=== PATIENT | female | born 1935 | race African-American/Black ===

== ENCOUNTER 2017-09-10 03:28 | Emergency (ER) | payer BC ==
[2017-09-10] MEDS: diphenhydrAMINE HCL 25 MG CAPSULE PO ×2 (03:58)
[2017-09-10] MEDS: FAMOTIDINE 20 MG TABLET. PO ×2 (03:59)
[2017-09-10] MEDS: DIPHENHYDRAMINE/ZINC ACETATE 2%/0.1% TOPICAL CREAM 28GM TUBE. TP ×2 (03:59)
== END 2017-09-10 04:15 | disposition home or self-care (01) ==
LOC: ER 03:28
DX: R21 Rash and other nonspecific skin eruption (principal); L29.9 Pruritus, unspecified; I10 Essential (primary) hypertension; E11.9 Type 2 diabetes mellitus without complications; G89.29 Other chronic pain
CPT/HCPCS: 99284; Q0163

== ENCOUNTER 2017-12-14 14:35 | Emergency (ER) | payer BC ==
[2017-12-14] MEDS: IV NORMAL SALINE 1000ML BAG 1,000 ML IV (15:45)
[2017-12-14 15:50] LABS: ADD MAN DIFF? NO
[2017-12-14 15:54] LABS: BASO % 0 % (0-3); BILIRUBIN,URINE NEGATIVE (NEG); CLARITY,URINE CLEAR; COLOR,URINE YELLOW; EOS # 0.1 x10^3/uL (0.0-0.7); EOS % 1 % (0-3); GLUCOSE,URINE NEGATIVE (NEG); HEMATOCRIT 32.1 % (36.0-47.0); HEMOGLOBIN 10.3 g/dL (12.0-15.5); LYMPH # 3.3 x10^3/uL (1.0-4.8); LYMPH % 29 % (24-48); MEAN CORPUSCULAR HEMOGLOBIN 27 pg (25-35); MEAN CORPUSCULAR HGB CONC 32 g/dL (31-37); MEAN CORPUSCULAR VOLUME 83 fL (79-100); MONO # 1.2 x10^3/uL (0.0-1.1); MONO % 10 % (0-9); NEUT # 6.7 x10^3uL (1.8-7.7); NEUT % 59 % (31-73); NITRITE,URINE NEGATIVE (NEG); PH,URINE 5.5; PLATELET COUNT 311 x10^3/uL (140-400); PROTEIN,URINE NEGATIVE (NEG-TRACE); RED BLOOD COUNT 3.85 x10^6/uL (3.50-5.40); RED CELL DISTRIBUTION WIDTH 17.8 % (11.5-14.5); WHITE BLOOD COUNT 11.4 x10^3/uL (4.0-11.0)
[2017-12-14 16:01] LABS: BACTERIA,URINE MANY /HPF (0-FEW); BARBITURATES NEG (NEG); BENZODIAZEPINES NEG (NEG); CANNABINOIDS NEG (NEG); COCAINE NEG (NEG); METHADONE NEG (NEG); OPIATES NEG (NEG); PHENCYCLIDINE NEG (NEG); RBC,URINE RARE /HPF (0-2); SQUAMOUS EPITHELIAL CELL,UR MANY /LPF
[2017-12-14 16:02] LABS: AMPHETAMINE/METHAMPHETAMINE NEG (NEG); ANION GAP 11 (6-14); BLOOD UREA NITROGEN 28 mg/dL (7-20); CALCIUM 8.9 mg/dL (8.5-10.1); CARBON DIOXIDE 26 mmol/L (21-32); CHLORIDE 100 mmol/L (98-107); CREATININE 1.3 mg/dL (0.6-1.0); ETHANOL, URINE NEG (NEG); GFR 47.2; GLUCOSE 108 mg/dL (70-99); POTASSIUM 3.6 mmol/L (3.5-5.1); SODIUM 137 mmol/L (136-145)
[2017-12-14 16:03] LABS: D-DIMER 0.92 ug/mlFEU (0.00-0.50); ETHANOL < 10 mg/dL (0-10)
[2017-12-14 16:21] LABS: CKMB INDEX 0.8 % (0-4); CKMB MASS 0.7 ng/mL (0.0-3.6); CREATINE KINASE 92 U/L (26-192)
[2017-12-14 16:21] LABS: NT-PRO BNP 53 pg/mL (0-449); TROPONINI < 0.017 ng/mL (0.000-0.055)
[2017-12-14] MEDS ORDERED: CONTRAST GIVEN MC (16:30)
[2017-12-14] MEDS: IOHEXOL 300 MG/ML 100ML VIAL. IV (16:30)
[2017-12-14 17:52] LABS: THYROID STIM HORMONE (TSH) 2.075 uIU/mL (0.358-3.74)
== END 2017-12-14 18:24 | disposition home or self-care (01) ==
LOC: ER 14:35
DX: R42 Dizziness and giddiness (principal); F41.9 Anxiety disorder, unspecified; G89.29 Other chronic pain; E11.9 Type 2 diabetes mellitus without complications; I10 Essential (primary) hypertension
CPT/HCPCS: 36415; 71275; 80048; 80307; 81001; 82553; 83880; 84443; 84484; 85025; 85379; 93005; 96360; 96361; 99285-25; G0480; J7030; Q9967

== ENCOUNTER 2018-01-01 06:10 | Emergency (ER) | payer BC ==
[2018-01-01] MEDS: PROCHLORPERAZINE 10 MG/2 ML VIAL. IV (06:41)
[2018-01-01] MEDS: diphenhydrAMINE 50 MG/ML VIAL IVP (06:41)
[2018-01-01] MEDS: IV NORMAL SALINE 500ML BAG 500 ML IV (06:42)
[2018-01-01 06:46] LABS: BILIRUBIN,URINE NEGATIVE (NEG); CLARITY,URINE CLEAR; COLOR,URINE YELLOW; GLUCOSE,URINE NEGATIVE (NEG); NITRITE,URINE NEGATIVE (NEG); PH,URINE 5.5; PROTEIN,URINE NEGATIVE (NEG-TRACE); UROBILINOGEN,URINE 0.2 mg/dL (0.2 mg/dL)
[2018-01-01 06:59] LABS: ADD MAN DIFF? NO
[2018-01-01 07:05] LABS: BACTERIA,URINE FEW /HPF (0-FEW); RBC,URINE 0 /HPF (0-2); SQUAMOUS EPITHELIAL CELL,UR MOD /LPF
[2018-01-01 07:13] LABS: BASO # 0.1 x10^3/uL (0.0-0.2); BASO % 1 % (0-3); EOS # 0.2 x10^3/uL (0.0-0.7); EOS % 2 % (0-3); HEMATOCRIT 28.1 % (36.0-47.0); HEMOGLOBIN 9.2 g/dL (12.0-15.5); LYMPH # 4.8 x10^3/uL (1.0-4.8); LYMPH % 43 % (24-48); MEAN CORPUSCULAR HEMOGLOBIN 28 pg (25-35); MEAN CORPUSCULAR HGB CONC 33 g/dL (31-37); MEAN CORPUSCULAR VOLUME 84 fL (79-100); MONO # 1.2 x10^3/uL (0.0-1.1); MONO % 11 % (0-9); NEUT # 4.9 x10^3uL (1.8-7.7); NEUT % 44 % (31-73); PLATELET COUNT 273 x10^3/uL (140-400); RED BLOOD COUNT 3.36 x10^6/uL (3.50-5.40)
[2018-01-01 07:21] LABS: ANION GAP 9 (6-14); BLOOD UREA NITROGEN 20 mg/dL (7-20); CALCIUM 8.8 mg/dL (8.5-10.1); CARBON DIOXIDE 25 mmol/L (21-32); CHLORIDE 105 mmol/L (98-107); CREATININE 1.1 mg/dL (0.6-1.0); GFR 57.3; GLUCOSE 137 mg/dL (70-99); POTASSIUM 3.7 mmol/L (3.5-5.1); SODIUM 139 mmol/L (136-145)
[2018-01-01 07:32] LABS: NT-PRO BNP 32 pg/mL (0-449)
[2018-01-01 07:34] LABS: TROPONINI < 0.017 ng/mL (0.000-0.055)
== END 2018-01-01 08:12 | disposition home or self-care (01) ==
LOC: ER 06:10
DX: R51 Headache (principal); R42 Dizziness and giddiness; E11.9 Type 2 diabetes mellitus without complications; I10 Essential (primary) hypertension; G89.29 Other chronic pain; M54.9 Dorsalgia, unspecified
CPT/HCPCS: 36415; 70450; 80048; 81001; 83880; 84484; 85025; 93005; 96374; 96375; 99285-25; J0780; J1200; J7040

== ENCOUNTER → 2018-06-18 | Outpatient (CLI) | payer BC ==
[2018-01-01 08:10] VITALS: BP 114/70
[~2018-06-18] MED LIST: FAMO-63 PO; METF500T16 PO
--- NOTE | 2018-06-18 14:37 | RAD ---
Single view chest 06/18/2018 CLINICAL INDICATION: Lung crackles. COMPARISON: CTA chest 12/14/2017, 2 view chest 09/15/2016 FINDINGS: Mild elevation of left hemidiaphragm. Cardiac and mediastinal silhouettes are unremarkable. There is stable mild bilateral interstitial opacities. No new focal consolidation. No pleural effusion or pneumothorax. IMPRESSION: Stable interstitial opacities consistent with interstitial lung disease. No superimposed focal consolidation. Electronically signed by: Pan Couch MD (06/18/2018 2:33 PM) [id number]
== END | disposition home or self-care (01) ==
LOC: RAD 12:12
PROVIDERS: ATTEND Nurse Practitioner Gerontology
DX: R09.89 Other specified symptoms and signs involving the circulatory and respiratory systems (principal)
CPT/HCPCS: 71046

== ENCOUNTER 2018-06-28 01:55 | Emergency (ER) | payer BC ==
[~2018-06-28] VITALS: Ht 162.6 cm; Wt 86.2 kg
--- NOTE | 2018-06-28 03:20 | PHYS DOC ---
Past Medical History Past Medical History: Diabetes-Type II, Hypertension Additional Past Medical Histor: Chronic back pain Past Surgical History: No Surgical History Additional Past Surgical Histo: cataract repair Alcohol Use: None Drug Use: None Adult General Chief Complaint Chief Complaint: GI PROBLEM [facility] Patient is a 82 year old female who presents with "gas" pain. The patient complains that she began having some GI upset last night after going to bed. She complains of a bloated sensation and excessive gas with some diffuse upper abdomen pain. The pain resolved prior to coming to the emergency department but she wanted to get checked out anyway. She has been at baseline health. She had no nausea or vomiting. She has had no constipation. Her last normal bowel movement was earlier today. Denies urinary symptoms. She does c/o urge to defecate despite that she cannot pass stool. She has not been having constipation lately. Review of Systems Review of Systems Constitutional: Denies fever or chills Eyes: Denies HENT: Denies Respiratory: Denies Cardiovascular: No additional information not addressed in HPI GI: Denies abdominal pain, n/v : Denies dysuria Musculoskeletal: Denies back pain Integument: Denies rash Neurologic: Denies headache Endocrine: Denies polyuria All other systems were reviewed and found to be within normal limits, except as documented in this note. Allergies Allergies Allergies Coded Allergies Type Severity Reaction Last Updated Verified No Known Drug Allergies 11/12/13 No Physical Exam Physical Exam Constitutional: Well developed, well nourished, no acute distress HENT: Normocephalic, atraumatic, bilateral external ears normal, oropharynx moist Eyes: PERRLA, EOMI, conjunctiva normal Neck: Normal range of motion, no tenderness Cardiovascular:Heart rate regular rhythm, no murmur Lungs & Thorax: Bilateral breath sounds clear to auscultation Abdomen: Bowel sounds normal, soft, no tenderness Skin: Warm, dry, no erythema Extremities: No edema Neurologic: Alert and oriented X 3 Psychologic: Affect normal Current Patient Data Vital Signs Vital Signs Date Time Temp Pulse Resp B/P (MAP) Pulse Ox O2 Delivery O2 Flow Rate FiO2 06/28/18 01:57 98.2 95 22 142/67 (92) 95 Room Air 98.2 Lab Values Laboratory Tests Test 06/28/18 03:15 White Blood Count 10.6 x10^3/uL (4.0-11.0) Red Blood Count 3.01 x10^6/uL (3.50-5.40) L Hemoglobin 8.1 g/dL (12.0-15.5) L Hematocrit 24.6 % (36.0-47.0) L Mean Corpuscular Volume 82 fL (79-100) Mean Corpuscular Hemoglobin 27 pg (25-35) Mean Corpuscular Hemoglobin Concent 33 g/dL (31-37) Red Cell Distribution Width 16.3 % (11.5-14.5) H Platelet Count 350 x10^3/uL (140-400) Neutrophils (%) (Auto) 55 % (31-73) Lymphocytes (%) (Auto) 30 % (24-48) Monocytes (%) (Auto) 12 % (0-9) H Eosinophils (%) (Auto) 2 % (0-3) Basophils (%) (Auto) 1 % (0-3) Neutrophils # (Auto) 5.8 x10^3uL (1.8-7.7) Lymphocytes # (Auto) 3.2 x10^3/uL (1.0-4.8) Monocytes # (Auto) 1.2 x10^3/uL (0.0-1.1) H Eosinophils # (Auto) 0.2 x10^3/uL (0.0-0.7) Basophils # (Auto) 0.1 x10^3/uL (0.0-0.2) Sodium Level 136 mmol/L (136-145) Potassium Level 3.6 mmol/L (3.5-5.1) Chloride Level 100 mmol/L (98-107) Carbon Dioxide Level 26 mmol/L (21-32) Anion Gap 10 (6-14) Blood Urea Nitrogen 24 mg/dL (7-20) H Creatinine 1.3 mg/dL (0.6-1.0) H Estimated GFR (Cockcroft-Gault) 47.2 Glucose Level 107 mg/dL (70-99) H Calcium Level 9.5 mg/dL (8.5-10.1) Troponin I Quantitative < 0.017 ng/mL (0.000-0.055) Laboratory Tests 06/28/18 03:15 Laboratory Tests 06/28/18 03:15 EKG EKG No STEMI Radiology/Procedures Radiology/Procedures KUB 3 views obtained. Air-filled dilation is identified of loops of bowel within the abdomen. This can be seen with ileus or obstruction. Degenerative changes throughout spine. Scoliotic curvature. Poor evaluation of kidney secondary to overlying dilated loops of bowel. Calcific density structures within the pelvis which could be bowel content or within the soft tissues or phleboliths. Cannot exclude ureter stones on this exam. Course & Med Decision Making Course & Med Decision Making Pertinent Labs and Imaging studies reviewed. (See chart for details) Patient is examined shortly after arrival to her room. This is a very well appearing 82-year-old female. Her abdominal exam is completely benign. Firm palpation does not elicit any pain. She has no nausea or vomiting. She does not chest pain. She has no symptoms at the time of the examination. We will check basic labs, troponin, EKG. 05:45: All results are reviewed and discussed with the patient. Her EKG is nonacute. Her plain film x-ray of the abdomen is documented above. Her lab panel is unremarkable. The patient's x-ray shows some large amount of gas in the intestine. Her physical exam is not concerning for any acute pathology such as ileus or SBO. Patient continues to have no pain. I did reexamine her abdomen and it remains soft and nontender throughout. Plan is for discharge home. The patient is advised to increase her walking regimen and exercise as much as possible. She is advised to use some Gas-X. Return to the ER for any new or worsening symptoms. Patient is agreeable to the plan of care. Dragon Disclaimer Dragon Disclaimer This electronic medical record was generated, in whole or in part, using a voice recognition dictation system. Departure Departure Disposition: 01 HOME, SELF-CARE Condition: GOOD Referrals: KELLY MEEK APRN (PCP) DINO BUSTAMANTE DO Jun 28, 2018 03:20
[2018-06-28 03:25] LABS: BASO # 0.1 x10^3/uL (0.0-0.2); BASO % 1 % (0-3); EOS # 0.2 x10^3/uL (0.0-0.7); EOS % 2 % (0-3); HEMATOCRIT 24.6 % (36.0-47.0); HEMOGLOBIN 8.1 g/dL (12.0-15.5); LYMPH # 3.2 x10^3/uL (1.0-4.8); LYMPH % 30 % (24-48); MEAN CORPUSCULAR HEMOGLOBIN 27 pg (25-35); MEAN CORPUSCULAR HGB CONC 33 g/dL (31-37); MEAN CORPUSCULAR VOLUME 82 fL (79-100); MONO # 1.2 x10^3/uL (0.0-1.1); MONO % 12 % (0-9); NEUT # 5.8 x10^3uL (1.8-7.7); NEUT % 55 % (31-73); PLATELET COUNT 350 x10^3/uL (140-400); RED BLOOD COUNT 3.01 x10^6/uL (3.50-5.40); RED CELL DISTRIBUTION WIDTH 16.3 % (11.5-14.5); WHITE BLOOD COUNT 10.6 x10^3/uL (4.0-11.0)
--- NOTE | 2018-06-28 03:31 | EKG ---
[facility] [address] [place] [address] Test Date: 2018-06-28 Test Time: 03:27:49 Pat Name: GLORIA COY Department: Room: Gender: F Air Pumper: : 1935 Requested By: DINO BUSTAMANTE Order Number: [id number] Reading MD: Kayode Stallings MD Measurements Intervals [place] Rate: 78 P: 34 SC: 170 QRS: -3 QRSD: 90 T: 42 QT: 378 QTc: 434 Interpretive Statements SINUS RHYTHM Electronically Signed On 06-30-2018 14:20:55 DROP WIRE OPERATOR by Kayode Stallings MD
[2018-06-28 03:39] LABS: CALCIUM 9.5 mg/dL (8.5-10.1); CREATININE 1.3 mg/dL (0.6-1.0); GFR 47.2; POTASSIUM 3.6 mmol/L (3.5-5.1)
--- NOTE | 2018-06-28 05:29 | RAD ---
INDICATION: ABD PAIN COMPARISON: None. IMPRESSION: Abdomen: 3 views obtained. Air-filled dilation is identified of loops of bowel within the abdomen. This can be seen with ileus or obstruction. Degenerative changes throughout spine. Scoliotic curvature. Poor evaluation of kidney secondary to overlying dilated loops of bowel. Calcific density structures within the pelvis which could be bowel content or within the soft tissues or phleboliths. Cannot exclude ureter stones on this exam. Electronically signed by: Chris Mosley MD (06/28/2018 5:26 AM) [facility]
[2018-06-28 05:50] VITALS: BP 146/60
== END 2018-06-28 06:00 | disposition home or self-care (01) ==
LOC: ER 01:55
DX: R14.0 Abdominal distension (gaseous) (principal); R10.84 Generalized abdominal pain; R10.10 Upper abdominal pain, unspecified; I10 Essential (primary) hypertension; E11.9 Type 2 diabetes mellitus without complications; G89.29 Other chronic pain
CPT/HCPCS: 36415; 74021; 80048; 84484; 85025; 93005; 99285-25

== ENCOUNTER 2018-07-22 08:55 | Emergency (ER) | payer BC ==
[~2018-07-22] VITALS: Ht 160 cm; Wt 83.9 kg
[2018-07-22 09:19] VITALS: BP 105/48
--- NOTE | 2018-07-22 09:51 | PHYS DOC ---
Past Medical History Past Medical History: Diabetes-Type II, Hypertension Additional Past Medical Histor: Chronic back pain Past Surgical History: Other Additional Past Surgical Histo: cataract repair Alcohol Use: None Drug Use: None Adult General Chief Complaint Chief Complaint: ITCHING HPI HPI Patient is a 82 year old [f__sex] who presents with [] Review of Systems Review of Systems Constitutional: Denies fever or chills [] Eyes: Denies change in visual acuity, redness, or eye pain [] HENT: Denies nasal congestion or sore throat [] Respiratory: Denies cough or shortness of breath [] Cardiovascular: No additional information not addressed in HPI [] GI: Denies abdominal pain, nausea, vomiting, bloody stools or diarrhea [] : Denies dysuria or hematuria [] Musculoskeletal: Denies back pain or joint pain [] Integument: Denies rash or skin lesions [] Neurologic: Denies headache, focal weakness or sensory changes [] Endocrine: Denies polyuria or polydipsia [] All other systems were reviewed and found to be within normal limits, except as documented in this note. Current Medications Current Medications Current Medications Medications (Trade) Dose Ordered Sig/[place] Start Time Stop Time Status Last Admin Dose Admin Methylprednisolone Acetate (DEPO-Medrol 80MG VIAL) 80 mg 1X ONCE 07/22/18 09:45 07/22/18 09:46 DC 07/22/18 10:25 80 MG Allergies Allergies Allergies Coded Allergies Type Severity Reaction Last Updated Verified No Known Drug Allergies 11/12/13 No Physical Exam Physical Exam Constitutional: Well developed, well nourished, no acute distress, non-toxic appearance. [] HENT: Normocephalic, atraumatic, bilateral external ears normal, oropharynx moist, no oral exudates, nose normal. [] Eyes: PERRLA, EOMI, conjunctiva normal, no discharge. [] Neck: Normal range of motion, no tenderness, supple, no stridor. [] Cardiovascular:Heart rate regular rhythm, no murmur [] Lungs & Thorax: Bilateral breath sounds clear to auscultation [] Abdomen: Bowel sounds normal, soft, no tenderness, no masses, no pulsatile masses. [] Skin: Warm, dry, no erythema, no rash. [] Back: No tenderness, no CVA tenderness. [] Extremities: No tenderness, no cyanosis, no clubbing, ROM intact, no edema. [] Neurologic: Alert and oriented X 3, normal motor function, normal sensory function, no focal deficits noted. [] Psychologic: Affect normal, judgement normal, mood normal. [] Current Patient Data Vital Signs Vital Signs Date Time Temp Pulse Resp B/P (MAP) Pulse Ox O2 Delivery O2 Flow Rate FiO2 07/22/18 09:19 97.9 64 20 105/48 (67) 99 Room Air 97.9 EKG EKG [] Radiology/Procedures Radiology/Procedures [] Course & Med Decision Making Course & Med Decision Making Pertinent Labs and Imaging studies reviewed. (See chart for details) [] Dragon Disclaimer Dragon Disclaimer This electronic medical record was generated, in whole or in part, using a voice recognition dictation system. Departure Departure Impression: Primary Impression: Winter itch Disposition: 01 HOME, SELF-CARE Condition: STABLE Referrals: KELLY MEEK APRN (PCP) Patient Instructions: Itching-Brief Additional Instructions: Use an emollient such as Eucerin, Vaseline or skin oil after showering daily. Follow-up with your primary care provider for recheck in one week. If worsening return to the emergency department. ALEJANDRINA UPTON APRN Jul 22, 2018 09:51 DARVIN BARDALES DO Jul 26, 2018 20:33
[2018-07-22] MEDS: methylPREDNISolone ACETATE 80 MG/ML VIAL. IM ONE (10:25)
== END 2018-07-22 10:28 | disposition home or self-care (01) ==
LOC: ER 08:55
DX: L29.8 Other pruritus (principal); E11.9 Type 2 diabetes mellitus without complications; I10 Essential (primary) hypertension; G89.29 Other chronic pain
CPT/HCPCS: 96372; 99283; J1040

== ENCOUNTER 2018-08-18 10:31 | Emergency (ER) | payer BC ==
[~2018-08-18] VITALS: Ht 152.4 cm; Wt 81.6 kg
[2018-08-18 11:35] VITALS: BP 102/50
[2018-08-18] MEDS ORDERED: ACETAMINOPHEN 325 MG TABLET. PO ONE (12:00)
--- NOTE | 2018-08-18 12:50 | RAD ---
Examination: 2 views of the right shoulder HISTORY: History of pain COMPARISON: None available FINDINGS: The humerus head is within the glenoid. Mild joint space loss identified in the glenohumeral joint and the acromioclavicular joint. There is no acute fracture or dislocation identified. Impression: Mild degenerative changes right glenohumeral joint and the acromioclavicular joint. Electronically signed by: Danilo Kelsey MD (08/18/2018 12:46 PM) [facility]
--- NOTE | 2018-08-18 12:53 | RAD ---
EXAM: CHEST 1 VIEW History: Shortness of breath COMPARISON: 06/18/2018 TECHNIQUE: Single portable radiograph of the chest FINDINGS: Low lung volumes and technique accentuates heart size and pulmonary vascularity. Mild prominent appearing bilateral interstitial lung markings likely chronic interstitial changes similar to prior exam. Mild elevation of the left hemidiaphragm is similar to prior exam. IMPRESSION: 1. No acute cardiopulmonary findings. 2. Mild prominent appearing bilateral interstitial lung markings likely chronic interstitial changes similar to prior exam. Electronically signed by: Danilo Kelsey MD (08/18/2018 12:49 PM) [facility]
--- NOTE | 2018-08-18 13:13 | PHYS DOC ---
Past Medical History Past Medical History: Diabetes-Type II, Hypertension Additional Past Medical Histor: Chronic back pain Past Surgical History: Other Additional Past Surgical Histo: cataract repair Alcohol Use: None Drug Use: None Adult General Chief Complaint Chief Complaint: SHOULDER INJURY [facility] HPI Patient is a 82 year old [female presents with shoulder pain. She says that she has had this pain really for a couple weeks it hurts when she moves her arm above her head hurts when she moves her neck in a certain position she says she thinks is from doing a lot of work with her hands over [place] time. In addition she says that her neck muscles feel tired when she moves around too much. She has really overall not been feeling great since the summer time she has had some allergies she's had some sinus congestion and occasionally she has some feeling of shortness of breath when she exerts herself that has been going on for a long time probably months at least. No chest pain. Review of Systems Review of Systems Constitutional: Denies fever or chills [] Eyes: Denies change in visual acuity, redness, or eye pain [] HENT: Denies nasal congestion or sore throat [] Respiratory: Denies cough or shortness of breath [] Cardiovascular: No additional information not addressed in HPI [] GI: Denies abdominal pain, nausea, vomiting, bloody stools or diarrhea [] : Denies dysuria or hematuria [] Musculoskeletal: Denies back pain or joint pain [] Integument: Denies rash or skin lesions [] Neurologic: Denies headache, focal weakness or sensory changes [] Endocrine: Denies polyuria or polydipsia [] All other systems were reviewed and found to be within normal limits, except as documented in this note. Current Medications Current Medications Current Medications Medications (Trade) Dose Ordered Sig/[facility] Start Time Stop Time Status Last Admin Dose Admin Acetaminophen (Tylenol) 650 mg 1X ONCE 08/18/18 12:00 08/18/18 12:01 DC 08/18/18 12:06 650 MG Allergies Allergies Allergies Coded Allergies Type Severity Reaction Last Updated Verified No Known Drug Allergies 11/12/13 No Physical Exam Physical Exam Constitutional: Well developed, well nourished, no acute distress, non-toxic appearance. [] HENT: Normocephalic, atraumatic, bilateral external ears normal, oropharynx moist, no oral exudates, nose normal. [] Eyes: PERRLA, EOMI, conjunctiva normal, no discharge. [] Neck: Normal range of motion, no tenderness, supple, no stridor. [] Cardiovascular:Heart rate regular rhythm, no murmur [] Lungs & Thorax: Bilateral breath sounds clear to auscultation [] Abdomen: Bowel sounds normal, soft, no tenderness, no masses, no pulsatile masses. [] Skin: Warm, dry, no erythema, no rash. [] Back: No tenderness, no CVA tenderness. [] Extremities: No tenderness, no cyanosis, no clubbing, ROM intact, no edema. [] some reproducible ttp noted with rom of the right shoulder and pinpoint ttp noted to right scapula Neurologic: Alert and oriented X 3, normal motor function, normal sensory function, no focal deficits noted. [] Psychologic: Affect normal, judgement normal, mood normal. [] Current Patient Data Vital Signs Vital Signs Date Time Temp Pulse Resp B/P (MAP) Pulse Ox O2 Delivery O2 Flow Rate FiO2 08/18/18 11:35 97.3 91 18 102/50 (67) 98 Room Air 97.3 Lab Values Laboratory Tests Test 08/18/18 12:15 POC Troponin I 0.01 ng/ml (<0.08) EKG EKG EKG shows a normal sinus rhythm there is 76 no acute ischemic changes noted interpreted by me the time of encounter.[] Radiology/Procedures Radiology/Procedures IMPRESSION: 1. No acute cardiopulmonary findings. 2. Mild prominent appearing bilateral interstitial lung markings likely chronic interstitial changes similar to prior exam. Electronically signed by: Danilo Kelsey MD (08/18/2018 12:49 PM) [facility] DICTATED and SIGNED BY: DANILO KELSEY MD DATE: 08/18/18 1246 [] Course & Med Decision Making Course & Med Decision Making Pertinent Labs and Imaging studies reviewed. (See chart for details) []82-year-old female presenting with chief complaint shoulder pain that sounds very much reproducible by history and on examination. We did a troponin and EKG unremarkable abundance of caution that this really does not sound like unstable angina. It is been ongoing for at least a couple weeks probably longer she was recommended to continue the muscle relaxant she has at home and to follow-up with her primary care doctor regarding her underlying chronic medical conditions. Mel Disclaimer Dragon Disclaimer This electronic medical record was generated, in whole or in part, using a voice recognition dictation system. Departure Departure Impression: Primary Impression: Shoulder pain Disposition: 01 HOME, SELF-CARE Condition: STABLE Referrals: KELLY MEEK APRN (PCP) Patient Instructions: Shoulder Pain, [id number] JENNIFER TILLMAN MD Aug 18, 2018 13:13
--- NOTE | 2018-08-18 13:30 | EKG ---
[facility] [address] [place] [address] Test Date: 2018-08-18 Test Time: 12:16:13 Pat Name: GLORIA COY Department: Room: Gender: F Special Education Curriculum Specialist: : 1935 Requested By: JENNIFER TILLMAN Order Number: [id number] Reading MD: Measurements Intervals [place] Rate: 76 P: 24 WV: 160 QRS: -11 QRSD: 82 T: 41 QT: 368 QTc: 418 Interpretive Statements SINUS RHYTHM LEFTWARD AXIS OTHERWISE NORMAL ECG RI6.01 No previous ECG available for comparison
== END 2018-08-18 13:43 | disposition home or self-care (01) ==
LOC: ER 10:31
DX: M25.511 Pain in right shoulder (principal); E11.9 Type 2 diabetes mellitus without complications; I10 Essential (primary) hypertension; G89.29 Other chronic pain
CPT/HCPCS: 71045; 73030; 84484; 93005; 99283-25

== ENCOUNTER → 2018-10-24 | Outpatient (CLI) | payer BC ==
[2018-10-23 16:06] VITALS: BP 146/68
[~2018-10-24] MED LIST changes: +AMLO5TAB10 PO; +FERR325T14 PO; +OMEP20CA10 PO
--- NOTE | 2018-10-24 15:43 | RAD ---
EXAM: Bilateral lower extremity venous Doppler sonogram. HISTORY: Pain and swelling. TECHNIQUE: Hendricks scale and color Doppler sonographic evaluation of the bilateral lower extremity veins with spectral waveform analysis was performed. FINDINGS: There is occlusive thrombus within the distal left superficial femoral vein the left popliteal vein. There is normal color flow, normal compressibility and there are normal spectral waveforms in the common femoral, superficial femoral, popliteal, and posterior tibial veins. The peroneal veins are not seen. IMPRESSION: Occlusive left distal superficial femoral and popliteal deep venous thrombosis. Findings were can indicate to Dr. Zavaleta by the kids club attendant at the time of exam. Electronically signed by: Gala Aponte MD (10/24/2018 3:40 PM) [facility]
== END | disposition home or self-care (01) ==
LOC: US 15:02
PROVIDERS: ATTEND Internal Medicine
DX: I82.432 Acute embolism and thrombosis of left popliteal vein (principal); I82.412 Acute embolism and thrombosis of left femoral vein
CPT/HCPCS: 93970

== ENCOUNTER → 2018-10-25 14:48 | Observation (INO) | payer BC ==
[2018-10-24] VITALS (8 sets, daily range): BP systolic 138–149; BP diastolic 64–72
--- NOTE | 2018-10-24 17:00 | NUR ---
Patient arrived to room 201 from outpatient. Vital signs stable, sinus Rhythm on the monitor. No complaints at the moment. Received order from Dr. Zavaleta. Will continue to monitor.
--- NOTE | 2018-10-24 18:30 | PDOC ---
Exam Police Radio Dispatcher Police Radio Dispatcher Dr. De Los Santos Sales Management Trainee Sales Management Trainee n/a Pre-Procedure Diagnosis Pre-Procedure Diagnosis Left Leg DVT with recent surgery and GI bleeding Post-Procedure Diagnosis Post-Procedure Diagnosis Same Procedure Performed Procedure Performed IVC Filter Type of Anesthesia Type of Anesthesia Local Estimated Blood Loss EBL: trace Specimens Specimans n/a Condition of Patient Condition of Patient stable Disposition Disposition return to [facility] PILAR DE LOS SANTOS MD Oct 24, 2018 18:30
--- NOTE | 2018-10-24 19:27 | RAD ---
Ultrasound-guided vascular access, IVC angiogram, IVC filter placement History: Left leg DVT, recent surgery and GI bleed for having anticoagulation. Procedure: Written informed consent was obtained. Patient was placed in the supine position on the angiography table. The targeted vein was evaluated sonographically and showed to be widely patent. This was documented in the patient's permanent record in PACS. Sterile ultrasound technique was used. The area was draped and prepped in normal sterile fashion. Local anesthesia with 1% Lidocaine was performed. Under real-time ultrasound a 21 gauge needle was advanced into the targeted vein. Needle placement was confirmed by return of venous blood flow. The needle was then exchanged over a wire after dermatotomy for a vascular sheath. An inferior venacavogram was then performed after the inferior vena cava was selectively catheterized. The inflow from the renal veins was unclear and the left renal vein was selectively catheterized and angiogram was performed. This demonstrates no left renal vein anomalies and a normal sized inferior vena cava. A Vena Tech low profile IVC filter was deployed. A repeat venacavogram was performed demonstrating good deployment. The endovascular equipment was removed with good hemostasis of the venotomy site using nonocclusive manual compression. The patient tolerated the procedure. Impression: No left renal vein anomalies. Successful deployment of inferior vena cava filter. Dose exposure: Kerma area product: 168 Hendricks centimeters squared
[2018-10-24] MEDS: FERROUS SULFATE 325 MG TABLET. PO SCH (23:32)
[~2018-10-25] VITALS: Ht 162.6 cm; Wt 86.6 kg
[2018-10-25 03:30] VITALS: BP 128/55
[2018-10-25 07:00] VITALS: BP 129/62
--- NOTE | 2018-10-25 07:53 | RAD ---
AP chest. HISTORY: DVT, chest pain AP view was taken of the chest. Comparison was made with a chest x-ray from August 18, and a CT from December 2017. Heart is normal in size. The aorta is tortuous. The patient's taken a poor inspiration. There is mild basilar fibrosis in the right lung base. There is pleural thickening and chronic fibrosis in the right upper lung field. There are no new confluent infiltrates. There is thoracolumbar scoliosis. There is not evidence of heart failure. IMPRESSION: 1. 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 2. No new infiltrates. Electronically signed by: Jose Rodriguez MD (10/25/2018 7:51 AM) [facility]
[2018-10-25] MEDS: FERROUS SULFATE 325 MG TABLET. PO SCH (08:58)
--- NOTE | 2018-10-25 09:07 | PDOC ---
Provider Note Provider Note history and physical dictated # [id number] DARVIN MCCALLUM MD Oct 25, 2018 09:07
--- NOTE | 2018-10-25 09:10 | DISCH ---
DISCHARGE INSTRUCTIONS Condition on Discharge Condition on Discharge: Stable Activity After Discharge Activity Instructions for Disc: Resume previous activity Diet after Discharge Diet after Discharge: Diabetic No Calorie Level Contacting the DR. after DC Call your doctor for: If your condition worsens Follow-Up Follow up with: dr. mccallum next week Follow Up With: dr. mcfarland next week. DARVIN MCCALLUM MD Oct 25, 2018 09:10
--- NOTE | 2018-10-25 09:16 | PDOC ---
Provider Note Provider Note discharge summary dictated [id number] DARVIN MCCALLUM MD Oct 25, 2018 09:16
[2018-10-25 10:03] LABS: BASO % 1 % (0-3); EOS # 0.1 x10^3/uL (0.0-0.7); EOS % 1 % (0-3); HEMATOCRIT 26.9 % (36.0-47.0); HEMOGLOBIN 8.5 g/dL (12.0-15.5); LYMPH % 23 % (24-48); MEAN CORPUSCULAR HEMOGLOBIN 26 pg (25-35); MEAN CORPUSCULAR HGB CONC 32 g/dL (31-37); MEAN CORPUSCULAR VOLUME 81 fL (79-100); MONO # 0.8 x10^3/uL (0.0-1.1); MONO % 9 % (0-9); NEUT # 5.9 x10^3uL (1.8-7.7); NEUT % 67 % (31-73); PLATELET COUNT 353 x10^3/uL (140-400); RED BLOOD COUNT 3.31 x10^6/uL (3.50-5.40); RED CELL DISTRIBUTION WIDTH 19.4 % (11.5-14.5); WHITE BLOOD COUNT 8.8 x10^3/uL (4.0-11.0)
--- NOTE | 2018-10-25 10:11 | HP ---
ADMIT DATE: 10/24/2018 ROOM: 201. HISTORY OF PRESENT ILLNESS: The patient is an 82-year-old white female who has a 1-week history of left lower extremity edema and some mild edema in the right foot, underwent bilateral lower extremity venous Doppler done yesterday, which showed a proximal left femoral deep vein thrombosis. Due to chronic GI bleeding, anticoagulants could not be used. Inferior vena cava filter was placed yesterday, and she is subsequently admitted to the hospital for further evaluation and observation. The patient does have a history of colon cancer. She had a colonoscopy done at [facility] about a month ago for heme positive stool and had a biopsy of a mass in the hepatic flexure of the colon, which was positive for adenocarcinoma. She has just got the results of the biopsy about 2 weeks ago. I saw the patient for the first time about 2 weeks ago also in the office. The patient was noted to be anemic, hemoglobin I believe went from 7.5 to 6.4 this week, and she received 2 units of packed red blood cells as an outpatient at [facility] this last . She has already seen Dr. Stallings for cardiology clearance for imminent surgery, and he ordered an echocardiogram, which I think will be done this coming week. In addition, the patient has appointment with Dr. Corbin I believe on Saturday to evaluate her for surgery. The patient denies any chest pain or shortness of breath and feels fine this morning. ALLERGIES AND INTOLERANCES: None. MEDICATIONS: Include amlodipine 5 mg every day, ferrous sulfate 325 mg b.i.d., metformin 500 mg b.i.d., omeprazole 40 mg every day. PAST MEDICAL HISTORY: Significant for diabetes mellitus type 2, hypertension, recently diagnosed colon cancer to hepatic flexure. Acute blood loss anemia due to the chronic GI bleeding from her colon cancer. She has had a D and C, cataract extraction. She had a colonoscopy done on 09/03/2018 and the EGD was done actually 09/03/2018. Colonoscopy showed a hepatic flexure mass consistent with adenocarcinoma. She had an EGD done, which showed gastritis and apparently had the duodenal ulcer also. SOCIAL HISTORY: She does not drink alcohol nor does she smoke cigarettes. She quit smoking in the past. FAMILY HISTORY: Noncontributory. REVIEW OF SYSTEMS: GENERAL: No fever, chills or sweats in the last 3 days. CARDIOVASCULAR: No chest pain. PULMONARY: No cough or shortness of breath. GASTROINTESTINAL: No constipation. ENDOCRINE: She has diabetes mellitus. SKIN: No rashes. The rest of systems reviewed are negative except as stated in history of present illness. PHYSICAL EXAMINATION: VITAL SIGNS: Temperature is 98.4 degrees, apical pulse rate of 82, respiratory rate 16, blood pressure 129/62, oxygen saturation 96% on room air. HEENT: Eyes: Gaze is conjugate. Conjunctivae pale. Mouth: Tongue is midline. NECK: There is no cervical lymphadenopathy or thyroid enlargement. HEART: Reveals an S1, S2. There is no S3 or murmur. LUNGS: Reveal chronic crackles in the right lung base. ABDOMEN: Soft, with no hepatosplenomegaly, masses or tenderness. LOWER EXTREMITIES: She has trace edema in the left lower extremity and trace pitting edema in the right foot. Examination of her feet shows dorsalis pedis pulses are present bilaterally. NEUROLOGIC: Revealed no facial weakness. She has got 5/5 bilateral hand inclusion specialist. Able to dorsi and plantarflex her feet, bend her knees and raise her legs up in the air. LABORATORY DATA: Pending. She had a chest x-ray done, which showed mild pulmonary fibrosis on the right, which is why she has chronic crackles in that area. No new infiltrate was seen. No evidence of heart failure. Electrocardiogram was ordered. I do not see that was done yet. Venous Doppler I was told by the refrigeration service technician yesterday that the venous Doppler showed a left femoral vein thrombosis. ASSESSMENT: 1. Deep vein thrombosis of the left femoral vein, treated with an inferior vena cava filter. 2. Colon cancer at the hepatic flexure. 3. Recent gastritis and possible duodenal ulcers. 4. Diabetes mellitus type 2. 5. Hypertension. 6. Acute blood loss anemia. PLAN: At this time is to obtain a CBC and a CMP. We will transfuse if hemoglobin less than 7, although she was just transfused 2 days ago. She has an appointment, I believe with Dr. Corbin on Saturday, but I was told that Dr. Mistry is production or plant engineer for him, so we can, maybe, just send to shelter with the lab results and anticipated dismissal later today. She is not a candidate for anticoagulation due to her colon cancer and chronic GI blood loss. We will continue the metformin for diabetes mellitus. We will continue with the amlodipine 5 mg every day. She is also on ferrous sulfate for her acute blood loss anemia. We will continue the Protonix also. DARVIN MCCALLUM MD DR: RENY/ghulam JOB#: [id number] / [id number]
[2018-10-25 10:13] LABS: ALBUMIN 2.1 g/dL (3.4-5.0); ALBUMIN/GLOBULIN RATIO 0.5 (1.0-1.7); CALCIUM 8.2 mg/dL (8.5-10.1); CREATININE 0.8 mg/dL (0.6-1.0); GFR 82.7; POTASSIUM 3.6 mmol/L (3.5-5.1); TOTAL BILIRUBIN 0.5 mg/dL (0.2-1.0); TOTAL PROTEIN 6.2 g/dL (6.4-8.2)
--- NOTE | 2018-10-25 10:22 | DS ---
DATE OF DISCHARGE: 10/25/2018 DATE OF ANTICIPATED DISMISSAL: 10/25/2018. FINAL DIAGNOSES: 1. Left femoral vein thrombosis, treated with an inferior vena cava filter. 2. Acute blood loss anemia. 3. Colon cancer at the hepatic flexure. 4. Diabetes mellitus type 2. 5. Hypertension. 6. Gastritis. PROCEDURE: Placement of inferior vena cava filter. TECHNICAL ASSISTANT: Dr. Rosenthal, who placed the filter. HOSPITAL COURSE: The patient is an 82-year-old white female who has noted a 1-week history of left lower extremity edema and slight edema in the right lower extremity, underwent a venous Doppler as an outpatient yesterday, late in the afternoon and was noted to have a left femoral vein thrombosis. So, she was admitted to the hospital and had an inferior vena cava filter placed last night. She was recently diagnosed with colon cancer. She had a colonoscopy, 09/03/2018, and labs and she had a biopsy. It was positive for adenocarcinoma for a mass in the hepatic flexure. This was done at [facility] and I saw her for the first time about 2 weeks ago and the biopsy was positive for adenocarcinoma. She had an EGD at that time, which showed gastritis. It might have also shown duodenal ulcers per the GI doctor, Dr. Henderson, who saw her recently as an outpatient, though I cannot confirm the latter. The patient did receive 2 units of packed red blood cells for a hemoglobin 6.4 two days ago as an outpatient at [facility]. Her hemoglobin had been 7.5 prior to that. So, she is not a candidate for anticoagulation due to her chronic GI bleeding from her colon cancer. She saw Dr. Stallings as an outpatient, who ordered the venous Doppler, but it was not going to be done until this coming Saturday, but I saw the patient in the office last week and ordered it for this week and they called me with results on Saturday and subsequently admitted to the hospital for placement of the IVC filter. In addition, she saw Dr. Stallings, who ordered an echocardiogram for cardiac clearance for her imminent surgery and I believe, she has an appointment with Dr. Corbin to evaluate her for surgery for colon resection on Saturday. The patient had the inferior vena cava filter placed yesterday. I have ordered a CBC and CMP last night. For some reason, it was not done. So, I ordered again this morning; and if her labs look okay and if the hemoglobin is greater than 7, we will anticipate that she will be dismissed later today and she will be dismissed on the same medications: Metformin 500 mg b.i.d. before meals, amlodipine 5 mg every day, omeprazole 40 mg every day with ferrous sulfate 325 mg b.i.d. She was told to see Dr. Zavaleta in the office in 1 week. Keep the appointment with Dr. Corbin, I believe, on Saturday and she will need the echocardiogram also if it has not been done yet, which was supposed to be scheduled by Dr. Stallings as an outpatient. DARVIN ZAVALETA MD DR: RENY/ghulam JOB#: [id number] / [id number]
[2018-10-25 11:00] VITALS: BP 137/69
--- NOTE | 2018-10-25 14:46 | NUR ---
Discharge Note: GLORIA COY Discharge instructions and discharge home medications reviewed with Patient and a copy given. All questions have been answered and understanding verbalized. The following instructions and handouts were given: Discontinued IV line. Patient discharged to home with self care via wheelchair.
[~2018-10-25 14:48] MED LIST changes: +ACETAMINOPHEN 325 MG TABLET. PO PRN; +CONTRAST GIVEN. MC PRN; +DEXTROSE 50% 25 GM / 50ML DISP.SYRIN. IV PRN; +IOHEXOL 240 MG/ML 50ML VIAL. IV ONE; +IOHEXOL 240 MG/ML 50ML VIAL. ONE; +LIDOCAINE WITH 8.4% SOD BICARB 3 ML DISP.SYRIN. IJ ONE; +LIDOCAINE WITH 8.4% SOD BICARB 3 ML DISP.SYRIN. ONE; +PANTOPRAZOLE 40 MG TABLET.DR. PO SCH; +amLODIPine BESYLATE 5 MG TABLET PO SCH; +fentaNYL PF VIAL 100 MCG/2 ML VIAL IV ONE; +fentaNYL PF VIAL 100 MCG/2 ML VIAL ONE; +metFORMIN 500 MG TABLET PO SCH
[2018-10-25 17:43] LABS: PROTHROMBIN TIME PATIENT 14.7 SEC (11.7-14.0)
[2018-10-25 17:45] LABS: CALCIUM 8.4 mg/dL (8.5-10.1); CREATININE 0.7 mg/dL (0.6-1.0); GFR 96.5
[2018-10-25 17:50] LABS: ALBUMIN 2.4 g/dL (3.4-5.0); ALBUMIN/GLOBULIN RATIO 0.6 (1.0-1.7); TOTAL BILIRUBIN 0.5 mg/dL (0.2-1.0); TOTAL PROTEIN 6.2 g/dL (6.4-8.2)
== END | disposition home or self-care (01) ==
LOC: 2 NORTH 10-24 16:15 → UNDOADMOB 10-24 16:15 → INTOOBSV 10-24 16:15 → UNDOADMIN 10-24 16:15 → 2 NORTH 10-24 16:15 → UNDODISOB 14:48 → UNDOADMOB 14:48 → 2 NORTH 14:48 → UNDODISIN 14:48
PROVIDERS: ADMIT Internal Medicine; ATTEND Internal Medicine
DX: I82.412 Acute embolism and thrombosis of left femoral vein (principal); I10 Essential (primary) hypertension; C18.3 Malignant neoplasm of hepatic flexure; E11.9 Type 2 diabetes mellitus without complications; D62 Acute posthemorrhagic anemia; I87.1 Compression of vein; K29.70 Gastritis, unspecified, without bleeding
CPT/HCPCS: 36415; 37191; 71045; 75831; 76937; 80053; 82962; 85025; 85610; 96374; C1769; C1892; G0378; G0379; J3010; Q9966

== ENCOUNTER → 2018-10-31 | Outpatient (CLI) | payer BC ==
[~2018-10-31] MED LIST changes: -ACETAMINOPHEN 325 MG TABLET. PO PRN; -CONTRAST GIVEN. MC PRN; -DEXTROSE 50% 25 GM / 50ML DISP.SYRIN. IV PRN; -IOHEXOL 240 MG/ML 50ML VIAL. IV ONE; -IOHEXOL 240 MG/ML 50ML VIAL. ONE; -LIDOCAINE WITH 8.4% SOD BICARB 3 ML DISP.SYRIN. IJ ONE; -LIDOCAINE WITH 8.4% SOD BICARB 3 ML DISP.SYRIN. ONE; -PANTOPRAZOLE 40 MG TABLET.DR. PO SCH; -amLODIPine BESYLATE 5 MG TABLET PO SCH; -fentaNYL PF VIAL 100 MCG/2 ML VIAL IV ONE; -fentaNYL PF VIAL 100 MCG/2 ML VIAL ONE; -metFORMIN 500 MG TABLET PO SCH
--- NOTE | 2018-10-31 12:06 | CARD ---
MR#: [id number] Date of Study: 10/31/2018 Ordering Physician: TIFF LAGOS, Referring Physician: TIFF LAGOS, Tech: Cassi Black APPROVED REPORT EXAM: Two-dimensional and M-mode echocardiogram with Doppler and color Doppler. Other Information Quality : AverageHR: 83bpm INDICATION Lower Extremity Edema RISK FACTORS Hypertension Diabetes 2D DIMENSIONS RVDd2.4 (2.9-3.5cm)Left Atrium(2D)3.2 (1.6-4.0cm) IVSd1.4 (0.7-1.1cm)Aortic Root(2D)2.9 (2.0-3.7cm) LVDd4.0 (3.9-5.9cm)LVOT Diameter2.2 (1.8-2.4cm) PWd1.0 (0.7-1.1cm)LVDs2.7 (2.5-4.0cm) FS (%) 32.6 %SV42.9 ml Aortic Valve AoV Peak Primo.153.2cm/sAoV VTI32.1cm AO Peak GR.9.4mmHgLVOT Peak Primo.127.1cm/s LVOT VTI 26.76cmAO Mean GR.4mmHg COLBY (VMAX)2.16ft5SLB (VTI)3.14cm2 Mitral Valve MV E Sglxyxft31.9cm/sMV E Peak Gr.142mmHg MV DECEL [id number] E Mean Gr.4mmHg MV YMO55hzVEG (PHT)3.82cm2 TDI E/Lateral E'10.3E/Medial E'15.9 Pulmonary Valve PV Peak Sqfisfel906.9cm/sPV Peak Grad.4mmHg Tricuspid Valve TR P. Aimvobwo038oa/sRAP KPRFZOBU2siKo TR Peak Gr.74jgXkYRSM26cpNp Pulmonary Vein S1 Rlqxqrdp72.0cm/sD2 Jpnvtkma56.3cm/s PVa [id number] LEFT VENTRICLE The left ventricle is normal size. There is mild concentric left ventricular hypertrophy. The left ve ntricular systolic function is normal and the ejection fraction is within normal range. The Ejection Fraction is 55-60%. There is normal LV segmental wall motion. Transmitral Doppler flow pattern is Gra de I-abnormal relaxation pattern. RIGHT VENTRICLE The right ventricle is normal size. There is normal right ventricular wall thickness. The right ventr icular systolic function is normal. ATRIA The left atrium is mildly dilated. The right atrium size is normal. The interatrial septum is intact with no evidence for an atrial septal defect or patent foramen ovale as noted on 2-D or Doppler imagi ng. AORTIC VALVE The aortic valve is normal in structure and function. Doppler and Color Flow revealed trace aortic re gurgitation. There is no significant aortic valvular stenosis. MITRAL VALVE The mitral valve is normal in structure and function. There is no evidence of mitral valve prolapse. There is no mitral valve stenosis. Doppler and Color-flow revealed mild to moderate mitral regurgitat ion. TRICUSPID VALVE The tricuspid valve is normal in structure and function. Doppler and Color Flow revealed trace tricus pid regurgitation. There is no tricuspid valve stenosis. PULMONIC VALVE The pulmonic valve is not well visualized. Doppler and Color Flow revealed no pulmonic valvular regur gitation. GREAT VESSELS The aortic root is normal in size. The IVC is normal in size and collapses >50% with inspiration. PERICARDIAL EFFUSION There is no evidence of significant pericardial effusion. Critical Notification Critical Value: No <Conclusion> The left ventricle is normal size. The left ventricular systolic function is normal and the ejection fraction is within normal range. The Ejection Fraction is 55-60%. There is mild concentric left ventricular hypertrophy. There is no significant aortic valvular stenosis. Doppler and Color Flow revealed trace aortic regurgitation. Doppler and Color-flow revealed mild to moderate mitral regurgitation. Doppler and Color Flow revealed trace tricuspid regurgitation. Signed by : Efren Jeff MD Electronically Approved : 10/31/2018 12:05:11
== END | disposition home or self-care (01) ==
LOC: ECHO 10:00
PROVIDERS: ATTEND Internal Medicine Cardiovascular Disease
DX: I34.0 Nonrheumatic mitral (valve) insufficiency (principal); I11.9 Hypertensive heart disease without heart failure; E11.9 Type 2 diabetes mellitus without complications
CPT/HCPCS: 93306

== ENCOUNTER → 2018-10-31 | Outpatient (CLI) | payer BC ==
[2018-10-25 11:00] VITALS: BP 137/69
[~2018-10-31] MED LIST changes: +IOHEXOL 240 MG/ML 50ML VIAL. PO ONE; +IOHEXOL 300 MG/ML 100ML VIAL. IV ONE
--- NOTE | 2018-10-31 12:04 | RAD ---
PQRS Compliance statement: One or more of the following individualized dose reduction techniques were utilized for this examination: 1. Automated exposure control. 2. Adjustment of the mA and/or kV according to patient size. 3. Use of iterative reconstruction technique. Indication:COLON CA INJ 75ML OMNI 300 PREV SENT TECHNIQUE: CT abdomen and pelvis with IV contrast with multiplanar reformats. COMPARISON: None FINDINGS: Heart is normal in size. No pericardial or pleural effusion. Fibrotic changes are seen in the bilateral lower lobes. Too small to characterize low attenuating lesion is seen in segment 2 of the liver (series 2 image 23). Otherwise, spleen, gallbladder, pancreas, adrenals and kidneys within normal limits. Infrarenal IVC filter noted. Diffuse atherosclerotic disease seen of the abdominal aorta and bilateral iliac arteries. No free pelvic fluid or ascites. Circumferential thickening of the colon seen in the region of hepatic flexure and ascending colon approximately measuring 1.7 cm in thickness and measuring about 10 cm in length. Multiple pericolonic lymph nodes are seen around the second segment measuring 1 cm in longest dimension. uterus is present. Urinary bladder is within normal limits. No suspicious bony lesion. IMPRESSION: 1. Nodular thickening of the hepatic flexure and ascending colon with pericolonic prominent lymph nodes compatible with provided history of colon cancer. 2. Too small to characterize segment 2 liver lesion may represent a simple cyst although metastasis is not ruled out. Attention on follow-up. Electronically signed by: Wong Orr DO (10/31/2018 12:01 PM) [facility]
== END | disposition home or self-care (01) ==
LOC: CT 07:44
PROVIDERS: ATTEND Surgery
DX: C19 Malignant neoplasm of rectosigmoid junction (principal); I70.0 Atherosclerosis of aorta; K76.89 Other specified diseases of liver
CPT/HCPCS: 74177; Q9966; Q9967

== ENCOUNTER → 2018-11-03 | Outpatient (CLI) | payer BC ==
[2018-10-25 11:00] VITALS: BP 137/69
[~2018-11-03] MED LIST changes: -IOHEXOL 240 MG/ML 50ML VIAL. PO ONE; -IOHEXOL 300 MG/ML 100ML VIAL. IV ONE
[2018-11-03 14:47] LABS: BASO % 0 % (0-3); EOS # 0.1 x10^3/uL (0.0-0.7); EOS % 1 % (0-3); HEMATOCRIT 28.7 % (36.0-47.0); HEMOGLOBIN 8.9 g/dL (12.0-15.5); LYMPH # 2.4 x10^3/uL (1.0-4.8); LYMPH % 22 % (24-48); MEAN CORPUSCULAR HEMOGLOBIN 25 pg (25-35); MEAN CORPUSCULAR HGB CONC 31 g/dL (31-37); MEAN CORPUSCULAR VOLUME 82 fL (79-100); MONO % 9 % (0-9); NEUT # 7.3 x10^3uL (1.8-7.7); NEUT % 68 % (31-73); PLATELET COUNT 376 x10^3/uL (140-400); RED BLOOD COUNT 3.52 x10^6/uL (3.50-5.40); WHITE BLOOD COUNT 10.8 x10^3/uL (4.0-11.0)
[2018-11-03 15:12] LABS: ALBUMIN 2.4 g/dL (3.4-5.0); CALCIUM 8.7 mg/dL (8.5-10.1); CREATININE 0.8 mg/dL (0.6-1.0); GFR 82.7; POTASSIUM 3.5 mmol/L (3.5-5.1)
--- NOTE | 2018-11-04 18:30 | NUR ---
PATIENT'S PRE - OP LAB REPORTS WAS FAXED BY LITTLE GRAHAM RN -OPD AT [id number] 11/04/2018 TO 'S OFFICE FOR REVIEW.
== END | disposition home or self-care (01) ==
LOC: SURGPAT 13:28
PROVIDERS: ATTEND Surgery
DX: Z01.812 Encounter for preprocedural laboratory examination (principal); C18.9 Malignant neoplasm of colon, unspecified
CPT/HCPCS: 36415; 80048; 82040; 85025

== ENCOUNTER 2018-11-10 07:57 | Inpatient (IN) | payer BC ==
[~2018-11-10] VITALS: Ht 162.6 cm; Wt 83.0 kg
[2018-11-10] VITALS (9 sets, daily range): BP systolic 133–146; BP diastolic 58–71
[~2018-11-10 07:57] MED LIST changes: +HYDROmorphone 2 MG/ML VIAL IV PRN; +LIDOCAINE 1% PF 2 ML VIAL. ID PRN; +ONDANSETRON PF 4 MG/2 ML VIAL. IV PRN; +PROCHLORPERAZINE 10 MG/2 ML VIAL. IV PRN; +fentaNYL PF VIAL 100 MCG/2 ML VIAL IV PRN
[2018-11-10] MEDS ORDERED: BUPIVAC MPF-EPI 0.5%-1:200000 30 ML VIAL. ONE (08:21)
[2018-11-10] MEDS ORDERED: metroNIDAZOLE 500mg PREMIX 500 MG/100 ML BAG IV ONE (09:00)
[2018-11-10] MEDS: IV RINGERS,LACTATED 1000ML 1,000 ML IV SCH ×2 (09:09→14:31)
[2018-11-10] MEDS ORDERED: ROCURONIUM 50 MG/5 ML VIAL. ONE ×2 (09:31→10:36)
[2018-11-10] MEDS ORDERED: PROPOFOL 20 ML IV ONE (10:08)
[2018-11-10] MEDS ORDERED: LIDOCAINE 2% PF 5 ML VIAL. ONE (10:08)
[2018-11-10] MEDS ORDERED: DESFLURANE 61 TO 120 MINUTES IH ONE (10:08)
[2018-11-10] MEDS ORDERED: DEXAMETHASONE SOD PHOS 20 MG/5 ML VIAL. ONE (10:09)
[2018-11-10] MEDS ORDERED: ONDANSETRON PF 4 MG/2 ML VIAL. ONE (10:09)
[2018-11-10] MEDS ORDERED: NEOSTIGMINE METHYLSULFATE 5 MG/5 ML SYRINGE. ONE (10:09)
[2018-11-10] MEDS ORDERED: GLYCOPYRROLATE 1 MG/5 ML VIAL. ONE (10:09)
[2018-11-10] MEDS ORDERED: fentaNYL PF VIAL 100 MCG/2 ML VIAL ONE (10:10)
[2018-11-10] MEDS ORDERED: PHENYLEPHRINE in 0.9% NACL PF 1 MG/10 ML SYRINGE. IV ONE (10:23)
[2018-11-10] MEDS ORDERED: ALBUTEROL SULFATE 8GM INHALER. INH ONE (10:45)
[2018-11-10] MEDS ORDERED: SEVOFLURANE > 120 MINUTES. IH ONE (11:52)
[2018-11-10] MEDS ORDERED: diphenhydrAMINE HCL 25 MG CAPSULE PO PRN (12:00)
[2018-11-10] MEDS ORDERED: 0.9 % SODIUM CHLORIDE 10 ML DISP.SYRIN. IV PRN (12:00)
[2018-11-10] MEDS ORDERED: MAG HYDROX/ALUMINUM HYD/SIMETH 30 ML ORAL.SUSP PO PRN (12:00)
--- NOTE | 2018-11-10 12:08 | PDOC ---
BRIEF OPERATIVE NOTE Date: Nov 10, 2018 Pre-Op Diagnosis cancer right colon Post-Op Diagnosis same Procedure Performed l/s assisted right colon resection Surgeon [employer] Manager Amy SALMON Anesthesia Type: General Blood Loss 25cc IV Fluid 1200cc Urine Output 75cc Specimens Obtained right colon Findings large mass, palpable nodes Complications none DANITA OHARA MD Nov 10, 2018 12:08
[2018-11-10] MEDS: fentaNYL PF VIAL 100 MCG/2 ML VIAL IV PRN ×2 (13:26→13:42)
[2018-11-10] MEDS: MORPHINE SULFATE 2 MG/ML VIAL. IV PRN ×2 (14:16→14:32)
[2018-11-10] MEDS: POTASSIUM CL 20MEQ-0.45% NACL 1,000 ML IV SCH (15:00)
[2018-11-10] MEDS: metFORMIN 500 MG TABLET PO SCH (15:16)
[2018-11-10] MEDS: HYDROmorphone 2 MG/ML VIAL IV PRN ×3 (15:50→22:50)
--- NOTE | 2018-11-10 16:52 | PDOC ---
Provider Note Provider Note consult dictated # [id number] DARVIN MCCALLUM MD Nov 10, 2018 16:52
[2018-11-10] MEDS: INSULIN LISPRO 300 UNITS/3 ML INSULN.PEN. SQ SCH (16:53)
[2018-11-10] MEDS ORDERED: BENZOCAINE/MENTHOL LOZENGE. PO PRN (18:30)
[2018-11-10] MEDS ORDERED: PHENOL ORAL SPRAY 177ML BOTTLE. PO PRN (18:30)
[2018-11-10] MEDS ORDERED: HYDROmorphone 2 MG/ML VIAL IV PRN (22:30)
--- NOTE | 2018-11-10 22:36 | OP ---
DATE OF SURGERY: 11/10/2018 PREOPERATIVE DIAGNOSIS: Cancer, right colon. POSTOPERATIVE DIAGNOSIS: Cancer, right colon. PROCEDURE: Laparoscopic-assisted right colon resection. SURGEON: Jose Rafael Ohara MD BATH STEWARD: VIKY Moe ANESTHESIA: General endotracheal. BLOOD LOSS: 25. INTRAVENOUS FLUIDS: 1200. URINE OUTPUT: 75. INDICATIONS: The patient is an 82-year-old lady with biopsy-proven carcinoma of the right colon, brought for resection. OPERATIVE FINDINGS: The liver was smooth and sharp. The gallbladder was supple without appreciable stones. A large mass present in the hepatic flexure had been previously tattooed. DESCRIPTION OF PROCEDURE: The patient brought to the operating suite, given a general endotracheal anesthetic. Sutherland catheter placed to dependent drainage and the abdomen prepped and draped in usual sterile fashion. A 5 mm port was placed in the epigastrium after local anesthetic, taking care to avoid injury to abdominal contents. Pneumoperitoneum established and under direct vision, the suprapubic and left abdominal ports were placed. We set about mobilizing the cecum and ascending colon by taking down the white line of Toldt being careful to avoid the right ureter, right kidney, and duodenum. The gastrocolic omentum was divided to allow mobilization of the proximal transverse colon. With adequate mobilization complete, the procedure was changed to an open. A small midline incision was made, bisected by the initial epigastric port location. Wound protector placed. The mass and adjacent bowel were delivered extracorporeally and a MERLENE stapler was used to divide the distal small bowel and the mid transverse colon beyond the process. Mesocolon was serially clamped, divided and ligated to allow removal of the specimen, again being careful to avoid the duodenum, right kidney, right ureter. An end-to-end anastomosis was created with a posterior row of interrupted 3-0 Vicryl suture. Bowel occluded proximally and distally with atraumatic clamps. Staple lines excised. Mucosal anastomosis created with a running locked 3-0 chromic, first posteriorly, then anteriorly. Clamps removed. Anastomosis completed with an anterior row of 3-0 Vicryl. There was competency and patency of the anastomosis. The mesenteric rent was carefully approximated with 2-0 chromic taking care to avoid compromise of blood supply to the anastomosis. Gloves were changed. Area was irrigated, evacuated and checked for hemostasis. When present and a correct sponge count was obtained, the wound protector was removed. The incision closed in a single layer using looped 0 PDS in running fashion, tied in the middle. Subq approximated with 3-0 Vicryl, skin closed with subcuticular 4-0 Monocryl. Sterile dressings applied. The patient was awakened from her anesthetic and taken to the recovery room in satisfactory condition. JOSE RAFAEL OHARA MD DR: CONNIE/ghulam JOB#: [id number] / [id number] Calvin Merrill MD
[2018-11-11] MEDS: POTASSIUM CL 20MEQ-0.45% NACL 1,000 ML IV SCH ×2 (01:50→11:15)
[2018-11-11 03:00] VITALS: BP 135/53
[2018-11-11 03:21] LABS: BASO % 0 % (0-3); EOS % 0 % (0-3); HEMATOCRIT 26.3 % (36.0-47.0); HEMOGLOBIN 8.2 g/dL (12.0-15.5); LYMPH # 2.9 x10^3/uL (1.0-4.8); LYMPH % 16 % (24-48); MEAN CORPUSCULAR HEMOGLOBIN 25 pg (25-35); MEAN CORPUSCULAR HGB CONC 31 g/dL (31-37); MEAN CORPUSCULAR VOLUME 80 fL (79-100); MONO # 1.2 x10^3/uL (0.0-1.1); MONO % 7 % (0-9); NEUT # 13.6 x10^3uL (1.8-7.7); NEUT % 77 % (31-73); PLATELET COUNT 361 x10^3/uL (140-400); RED BLOOD COUNT 3.28 x10^6/uL (3.50-5.40); RED CELL DISTRIBUTION WIDTH 19.6 % (11.5-14.5); WHITE BLOOD COUNT 17.6 x10^3/uL (4.0-11.0)
[2018-11-11 03:36] LABS: CALCIUM 8.9 mg/dL (8.5-10.1); CREATININE 0.9 mg/dL (0.6-1.0); GFR 72.2; POTASSIUM 4.5 mmol/L (3.5-5.1)
[2018-11-11 04:50] LABS: % BANDS 1 % (0-9); % LYMPHS 13 % (24-48); % MONOS 4 % (0-10); % SEGS 82 % (35-66)
[2018-11-11 04:51] LABS: ANISOCYTOSIS SLIGHT; HYPOCHROMIA SLIGHT; PLT ESTIMATE ADEQUATE (ADEQUATE); POLYCHROMASIA SLIGHT; SCHISTOCYTES OCC; SPHEROCYTES OCC
[2018-11-11] MEDS: PANTOPRAZOLE IV PUSH 40 MG VIAL. IVP SCH (06:22)
[2018-11-11] MEDS: HYDROmorphone 2 MG/ML VIAL IV PRN ×2 (06:23→11:21)
[2018-11-11 07:00] VITALS: BP 145/74
[2018-11-11] MEDS: amLODIPine BESYLATE 5 MG TABLET PO SCH ×2 (07:28→09:00)
[2018-11-11] MEDS: metFORMIN 500 MG TABLET PO SCH ×3 (07:28→16:59)
[2018-11-11] MEDS ORDERED: PANTOPRAZOLE 40 MG TABLET.DR. PO SCH (07:30)
[2018-11-11] MEDS: INSULIN LISPRO 300 UNITS/3 ML INSULN.PEN. SQ SCH ×3 (08:00→17:00)
[2018-11-11] MEDS: ENOXAPARIN 40 MG/0.4 ML SYRINGE. SQ SCH (08:10)
--- NOTE | 2018-11-11 10:27 | PDOC ---
SURGICAL PROGRESS NOTE Subjective adequate pain control two family members at bedside no n/v Vital Signs Vital Signs Date Time Temp Pulse Resp B/P (MAP) Pulse Ox O2 Delivery O2 Flow Rate FiO2 11/11/18 07:00 98.1 76 16 145/74 (97) 96 Room Air 98.1 11/10/18 16:53 2.0 I&O Intake and Output 11/11/18 07:00 Intake Total 2220 ml Output Total 900 ml Balance 1320 ml Intake Oral 170 ml IV Total 2050 ml Output Urine Total 875 ml Estimated Blood Loss 25 ml PATIENT HAS A QUINONES: Yes General: Alert, No acute distress Labs Laboratory Tests Test 11/10/18 08:44 11/10/18 12:12 11/10/18 16:47 11/10/18 20:41 Glucose (Fingerstick) 114 mg/dL (70-99) 180 mg/dL (70-99) 192 mg/dL (70-99) 161 mg/dL (70-99) Test 11/11/18 02:35 11/11/18 07:58 White Blood Count 17.6 x10^3/uL (4.0-11.0) Red Blood Count 3.28 x10^6/uL (3.50-5.40) Hemoglobin 8.2 g/dL (12.0-15.5) Hematocrit 26.3 % (36.0-47.0) Mean Corpuscular Volume 80 fL (79-100) Mean Corpuscular Hemoglobin 25 pg (25-35) Mean Corpuscular Hemoglobin Concent 31 g/dL (31-37) Red Cell Distribution Width 19.6 % (11.5-14.5) Platelet Count 361 x10^3/uL (140-400) Neutrophils (%) (Auto) 77 % (31-73) Lymphocytes (%) (Auto) 16 % (24-48) Monocytes (%) (Auto) 7 % (0-9) Eosinophils (%) (Auto) 0 % (0-3) Basophils (%) (Auto) 0 % (0-3) Neutrophils # (Auto) 13.6 x10^3uL (1.8-7.7) Lymphocytes # (Auto) 2.9 x10^3/uL (1.0-4.8) Monocytes # (Auto) 1.2 x10^3/uL (0.0-1.1) Eosinophils # (Auto) 0.0 x10^3/uL (0.0-0.7) Basophils # (Auto) 0.0 x10^3/uL (0.0-0.2) Segmented Neutrophils % 82 % (35-66) Band Neutrophils % 1 % (0-9) Lymphocytes % 13 % (24-48) Monocytes % 4 % (0-10) Platelet Estimate Adequate (ADEQUATE) Polychromasia Slight Hypochromasia Slight Anisocytosis Slight Spherocytes Occ Schistocytes Occ Sodium Level 138 mmol/L (136-145) Potassium Level 4.5 mmol/L (3.5-5.1) Chloride Level 105 mmol/L (98-107) Carbon Dioxide Level 21 mmol/L (21-32) Anion Gap 12 (6-14) Blood Urea Nitrogen 5 mg/dL (7-20) Creatinine 0.9 mg/dL (0.6-1.0) Estimated GFR (Cockcroft-Gault) 72.2 Glucose Level 140 mg/dL (70-99) Calcium Level 8.9 mg/dL (8.5-10.1) Glucose (Fingerstick) 121 mg/dL (70-99) Laboratory Tests Test 11/10/18 12:12 11/10/18 16:47 11/10/18 20:41 11/11/18 02:35 Glucose (Fingerstick) 180 mg/dL (70-99) 192 mg/dL (70-99) 161 mg/dL (70-99) White Blood Count 17.6 x10^3/uL (4.0-11.0) Red Blood Count 3.28 x10^6/uL (3.50-5.40) Hemoglobin 8.2 g/dL (12.0-15.5) Hematocrit 26.3 % (36.0-47.0) Mean Corpuscular Volume 80 fL (79-100) Mean Corpuscular Hemoglobin 25 pg (25-35) Mean Corpuscular Hemoglobin Concent 31 g/dL (31-37) Red Cell Distribution Width 19.6 % (11.5-14.5) Platelet Count 361 x10^3/uL (140-400) Neutrophils (%) (Auto) 77 % (31-73) Lymphocytes (%) (Auto) 16 % (24-48) Monocytes (%) (Auto) 7 % (0-9) Eosinophils (%) (Auto) 0 % (0-3) Basophils (%) (Auto) 0 % (0-3) Neutrophils # (Auto) 13.6 x10^3uL (1.8-7.7) Lymphocytes # (Auto) 2.9 x10^3/uL (1.0-4.8) Monocytes # (Auto) 1.2 x10^3/uL (0.0-1.1) Eosinophils # (Auto) 0.0 x10^3/uL (0.0-0.7) Basophils # (Auto) 0.0 x10^3/uL (0.0-0.2) Segmented Neutrophils % 82 % (35-66) Band Neutrophils % 1 % (0-9) Lymphocytes % 13 % (24-48) Monocytes % 4 % (0-10) Platelet Estimate Adequate (ADEQUATE) Polychromasia Slight Hypochromasia Slight Anisocytosis Slight Spherocytes Occ Schistocytes Occ Sodium Level 138 mmol/L (136-145) Potassium Level 4.5 mmol/L (3.5-5.1) Chloride Level 105 mmol/L (98-107) Carbon Dioxide Level 21 mmol/L (21-32) Anion Gap 12 (6-14) Blood Urea Nitrogen 5 mg/dL (7-20) Creatinine 0.9 mg/dL (0.6-1.0) Estimated GFR (Cockcroft-Gault) 72.2 Glucose Level 140 mg/dL (70-99) Calcium Level 8.9 mg/dL (8.5-10.1) Test 11/11/18 07:58 Glucose (Fingerstick) 121 mg/dL (70-99) elevated WBC, most likely reactive Assessment/Plan POD 1 out of bed offer clear liquids DANITA OHARA MD Nov 11, 2018 10:27
--- NOTE | 2018-11-11 10:29 | PDOC ---
SURGICAL PROGRESS NOTE Subjective no nausea no flatus pain minimal--but has not gotten up yet Vital Signs Vital Signs Date Time Temp Pulse Resp B/P (MAP) Pulse Ox O2 Delivery O2 Flow Rate FiO2 11/11/18 07:00 98.1 76 16 145/74 (97) 96 Room Air 98.1 11/10/18 16:53 2.0 I&O Intake and Output 11/11/18 07:00 Intake Total 2220 ml Output Total 900 ml Balance 1320 ml Intake Oral 170 ml IV Total 2050 ml Output Urine Total 875 ml Estimated Blood Loss 25 ml PATIENT HAS A QUINONES: Yes General: Alert, Cooperative Abdomen: Soft, Other (dressing dry ) Labs Laboratory Tests Test 11/10/18 08:44 11/10/18 12:12 11/10/18 16:47 11/10/18 20:41 Glucose (Fingerstick) 114 mg/dL (70-99) 180 mg/dL (70-99) 192 mg/dL (70-99) 161 mg/dL (70-99) Test 11/11/18 02:35 11/11/18 07:58 White Blood Count 17.6 x10^3/uL (4.0-11.0) Red Blood Count 3.28 x10^6/uL (3.50-5.40) Hemoglobin 8.2 g/dL (12.0-15.5) Hematocrit 26.3 % (36.0-47.0) Mean Corpuscular Volume 80 fL (79-100) Mean Corpuscular Hemoglobin 25 pg (25-35) Mean Corpuscular Hemoglobin Concent 31 g/dL (31-37) Red Cell Distribution Width 19.6 % (11.5-14.5) Platelet Count 361 x10^3/uL (140-400) Neutrophils (%) (Auto) 77 % (31-73) Lymphocytes (%) (Auto) 16 % (24-48) Monocytes (%) (Auto) 7 % (0-9) Eosinophils (%) (Auto) 0 % (0-3) Basophils (%) (Auto) 0 % (0-3) Neutrophils # (Auto) 13.6 x10^3uL (1.8-7.7) Lymphocytes # (Auto) 2.9 x10^3/uL (1.0-4.8) Monocytes # (Auto) 1.2 x10^3/uL (0.0-1.1) Eosinophils # (Auto) 0.0 x10^3/uL (0.0-0.7) Basophils # (Auto) 0.0 x10^3/uL (0.0-0.2) Segmented Neutrophils % 82 % (35-66) Band Neutrophils % 1 % (0-9) Lymphocytes % 13 % (24-48) Monocytes % 4 % (0-10) Platelet Estimate Adequate (ADEQUATE) Polychromasia Slight Hypochromasia Slight Anisocytosis Slight Spherocytes Occ Schistocytes Occ Sodium Level 138 mmol/L (136-145) Potassium Level 4.5 mmol/L (3.5-5.1) Chloride Level 105 mmol/L (98-107) Carbon Dioxide Level 21 mmol/L (21-32) Anion Gap 12 (6-14) Blood Urea Nitrogen 5 mg/dL (7-20) Creatinine 0.9 mg/dL (0.6-1.0) Estimated GFR (Cockcroft-Gault) 72.2 Glucose Level 140 mg/dL (70-99) Calcium Level 8.9 mg/dL (8.5-10.1) Glucose (Fingerstick) 121 mg/dL (70-99) Laboratory Tests Test 11/10/18 12:12 11/10/18 16:47 11/10/18 20:41 11/11/18 02:35 Glucose (Fingerstick) 180 mg/dL (70-99) 192 mg/dL (70-99) 161 mg/dL (70-99) White Blood Count 17.6 x10^3/uL (4.0-11.0) Red Blood Count 3.28 x10^6/uL (3.50-5.40) Hemoglobin 8.2 g/dL (12.0-15.5) Hematocrit 26.3 % (36.0-47.0) Mean Corpuscular Volume 80 fL (79-100) Mean Corpuscular Hemoglobin 25 pg (25-35) Mean Corpuscular Hemoglobin Concent 31 g/dL (31-37) Red Cell Distribution Width 19.6 % (11.5-14.5) Platelet Count 361 x10^3/uL (140-400) Neutrophils (%) (Auto) 77 % (31-73) Lymphocytes (%) (Auto) 16 % (24-48) Monocytes (%) (Auto) 7 % (0-9) Eosinophils (%) (Auto) 0 % (0-3) Basophils (%) (Auto) 0 % (0-3) Neutrophils # (Auto) 13.6 x10^3uL (1.8-7.7) Lymphocytes # (Auto) 2.9 x10^3/uL (1.0-4.8) Monocytes # (Auto) 1.2 x10^3/uL (0.0-1.1) Eosinophils # (Auto) 0.0 x10^3/uL (0.0-0.7) Basophils # (Auto) 0.0 x10^3/uL (0.0-0.2) Segmented Neutrophils % 82 % (35-66) Band Neutrophils % 1 % (0-9) Lymphocytes % 13 % (24-48) Monocytes % 4 % (0-10) Platelet Estimate Adequate (ADEQUATE) Polychromasia Slight Hypochromasia Slight Anisocytosis Slight Spherocytes Occ Schistocytes Occ Sodium Level 138 mmol/L (136-145) Potassium Level 4.5 mmol/L (3.5-5.1) Chloride Level 105 mmol/L (98-107) Carbon Dioxide Level 21 mmol/L (21-32) Anion Gap 12 (6-14) Blood Urea Nitrogen 5 mg/dL (7-20) Creatinine 0.9 mg/dL (0.6-1.0) Estimated GFR (Cockcroft-Gault) 72.2 Glucose Level 140 mg/dL (70-99) Calcium Level 8.9 mg/dL (8.5-10.1) Test 11/11/18 07:58 Glucose (Fingerstick) 121 mg/dL (70-99) Assessment/Plan POD #1 right colon await bowel function [employer] Nov 11, 2018 10:29
--- NOTE | 2018-11-11 10:31 | PDOC ---
PROGRESS NOTES Subjective Subjective feels okay. family in room. afebrile. has a dry cough. lab reviewed. wbc 17.6 and hgb 8.2. no flatus or BM. comfortable and alert. Objective Objective Vital Signs Date Time Temp Pulse Resp B/P (MAP) Pulse Ox O2 Delivery O2 Flow Rate FiO2 11/11/18 07:00 98.1 76 16 145/74 (97) 96 Room Air 98.1 11/10/18 16:53 2.0 Intake and Output 11/11/18 07:00 Intake Total 2220 ml Output Total 900 ml Balance 1320 ml Intake Oral 170 ml IV Total 2050 ml Output Urine Total 875 ml Estimated Blood Loss 25 ml Physical Exam Abdomen: Soft, Other (dry dressing. resists palpation due to anticipated pain. bowel sounds heard) Heart: Regular rate, Normal S1, Normal S2 Extremities: No edema General: Alert HEENT: Atraumatic Lungs: Other (crackles RLL) Neuro: Normal speech Psych/Mental Status: Mental status NL Skin: No rashes Assessment Assessment laparoscopic assisted right colon resection for hepatic flexure adenocarcinoma of colon acute blood loss anemia leukocytosis diabetes mellitus type 2 hypertension history of recent IVC filter for LLE DVT Plan Plan of Care cxr urinalysis and urine culture lab tomorrow analgesics start PT to mobilize continue SQ heparin for DVT prophylaxis iv fluids diet per dr. Shaquille dawkins insulin sliding scale low dose Comment Review of Relevant I have reviewed the following items nuria (where applicable) has been applied. Labs Laboratory Tests Test 11/10/18 08:44 11/10/18 12:12 11/10/18 16:47 11/10/18 20:41 Glucose (Fingerstick) 114 mg/dL (70-99) 180 mg/dL (70-99) 192 mg/dL (70-99) 161 mg/dL (70-99) Test 11/11/18 02:35 11/11/18 07:58 White Blood Count 17.6 x10^3/uL (4.0-11.0) Red Blood Count 3.28 x10^6/uL (3.50-5.40) Hemoglobin 8.2 g/dL (12.0-15.5) Hematocrit 26.3 % (36.0-47.0) Mean Corpuscular Volume 80 fL (79-100) Mean Corpuscular Hemoglobin 25 pg (25-35) Mean Corpuscular Hemoglobin Concent 31 g/dL (31-37) Red Cell Distribution Width 19.6 % (11.5-14.5) Platelet Count 361 x10^3/uL (140-400) Neutrophils (%) (Auto) 77 % (31-73) Lymphocytes (%) (Auto) 16 % (24-48) Monocytes (%) (Auto) 7 % (0-9) Eosinophils (%) (Auto) 0 % (0-3) Basophils (%) (Auto) 0 % (0-3) Neutrophils # (Auto) 13.6 x10^3uL (1.8-7.7) Lymphocytes # (Auto) 2.9 x10^3/uL (1.0-4.8) Monocytes # (Auto) 1.2 x10^3/uL (0.0-1.1) Eosinophils # (Auto) 0.0 x10^3/uL (0.0-0.7) Basophils # (Auto) 0.0 x10^3/uL (0.0-0.2) Segmented Neutrophils % 82 % (35-66) Band Neutrophils % 1 % (0-9) Lymphocytes % 13 % (24-48) Monocytes % 4 % (0-10) Platelet Estimate Adequate (ADEQUATE) Polychromasia Slight Hypochromasia Slight Anisocytosis Slight Spherocytes Occ Schistocytes Occ Sodium Level 138 mmol/L (136-145) Potassium Level 4.5 mmol/L (3.5-5.1) Chloride Level 105 mmol/L (98-107) Carbon Dioxide Level 21 mmol/L (21-32) Anion Gap 12 (6-14) Blood Urea Nitrogen 5 mg/dL (7-20) Creatinine 0.9 mg/dL (0.6-1.0) Estimated GFR (Cockcroft-Gault) 72.2 Glucose Level 140 mg/dL (70-99) Calcium Level 8.9 mg/dL (8.5-10.1) Glucose (Fingerstick) 121 mg/dL (70-99) Laboratory Tests Test 11/10/18 12:12 11/10/18 16:47 11/10/18 20:41 11/11/18 02:35 Glucose (Fingerstick) 180 mg/dL (70-99) 192 mg/dL (70-99) 161 mg/dL (70-99) White Blood Count 17.6 x10^3/uL (4.0-11.0) Red Blood Count 3.28 x10^6/uL (3.50-5.40) Hemoglobin 8.2 g/dL (12.0-15.5) Hematocrit 26.3 % (36.0-47.0) Mean Corpuscular Volume 80 fL (79-100) Mean Corpuscular Hemoglobin 25 pg (25-35) Mean Corpuscular Hemoglobin Concent 31 g/dL (31-37) Red Cell Distribution Width 19.6 % (11.5-14.5) Platelet Count 361 x10^3/uL (140-400) Neutrophils (%) (Auto) 77 % (31-73) Lymphocytes (%) (Auto) 16 % (24-48) Monocytes (%) (Auto) 7 % (0-9) Eosinophils (%) (Auto) 0 % (0-3) Basophils (%) (Auto) 0 % (0-3) Neutrophils # (Auto) 13.6 x10^3uL (1.8-7.7) Lymphocytes # (Auto) 2.9 x10^3/uL (1.0-4.8) Monocytes # (Auto) 1.2 x10^3/uL (0.0-1.1) Eosinophils # (Auto) 0.0 x10^3/uL (0.0-0.7) Basophils # (Auto) 0.0 x10^3/uL (0.0-0.2) Segmented Neutrophils % 82 % (35-66) Band Neutrophils % 1 % (0-9) Lymphocytes % 13 % (24-48) Monocytes % 4 % (0-10) Platelet Estimate Adequate (ADEQUATE) Polychromasia Slight Hypochromasia Slight Anisocytosis Slight Spherocytes Occ Schistocytes Occ Sodium Level 138 mmol/L (136-145) Potassium Level 4.5 mmol/L (3.5-5.1) Chloride Level 105 mmol/L (98-107) Carbon Dioxide Level 21 mmol/L (21-32) Anion Gap 12 (6-14) Blood Urea Nitrogen 5 mg/dL (7-20) Creatinine 0.9 mg/dL (0.6-1.0) Estimated GFR (Cockcroft-Gault) 72.2 Glucose Level 140 mg/dL (70-99) Calcium Level 8.9 mg/dL (8.5-10.1) Test 11/11/18 07:58 Glucose (Fingerstick) 121 mg/dL (70-99) Medications Current Medications Ondansetron HCl (Zofran) 4 mg PRN Q6HRS PRN IV NAUSEA/VOMITING Last administered on 11/10/18at 13:39; Start 11/10/18 at 07:00; Stop 11/11/18 at 06:59; Status DC Fentanyl Citrate (Fentanyl 2ml Vial) 25 mcg PRN Q5MIN PRN IV MILD PAIN; Start 11/10/18 at 07:00; Stop 11/11/18 at 06:59; Status DC Fentanyl Citrate (Fentanyl 2ml Vial) 50 mcg PRN Q5MIN PRN IV MODERATE TO SEVERE PAIN Last administered on 11/10/18at 13:42; Start 11/10/18 at 07:00; Stop at 06:59; Status DC Morphine Sulfate (Morphine Sulfate) 1 mg PRN Q10MIN PRN IV SEVERE PAIN Last administered on 11/10/18at 14:32; Start 11/10/18 at 07:00; Stop 11/11/18 at 06:59; Status DC Ringer's Solution 1,000 ml @ 30 mls/hr Q24H IV Last administered on 11/10/18at 14:31; Start 11/10/18 at 07:00; Stop 11/10/18 at 18:59; Status DC Lidocaine HCl (Xylocaine-Mpf 1% 2ml Vial) 2 ml PRN 1X PRN ID PRIOR TO IV START ; Start 11/10/18 at 07:00; Stop 11/11/18 at 06:59; Status DC Hydromorphone HCl (Dilaudid) 0.5 mg PRN Q10MIN PRN IV SEV PAIN, Second choice; Start 11/10/18 at 07:00; Stop 11/11/18 at 06:59; Status DC Prochlorperazine Edisylate (Compazine) 5 mg PACU PRN PRN IV NAUSEA, MRX1 Last administered on 11/10/18at 13:22; Start 11/10/18 at 07:00; Stop 11/11/18 at 06:59; Status DC Cefazolin Sodium/ Dextrose 50 ml @ 100 mls/hr 1X PREOP PRN IV PRIOR TO PROCEDURE; Start 11/10/18 at 06:00; Stop 11/10/18 at 18:00; Status DC Metronidazole 100 ml @ 100 mls/hr 1X PREOP PRN IV PRIOR TO PROCEDURE; Start at 06:00; Stop 11/10/18 at 18:00; Status DC Bupivacaine HCl/ Epinephrine Bitart (Sensorcain-Mpf Epi 0.5%-[id number]) 30 ml STK -MED ONCE .ROUTE Last administered on 11/10/18at 10:00; Start 11/10/18 at 08:21; Stop 11/10/18 at 09:21; Status DC Rocuronium Watson (Zemuron) 50 mg STK-MED ONCE .ROUTE ; Start 11/10/18 at 09:31 ; Stop 11/10/18 at 09:32; Status DC Desflurane (Suprane) 60 ml STK-MED ONCE IH ; Start 11/10/18 at 10:08; Stop at 10:09; Status DC Propofol 20 ml @ As Directed STK-MED ONCE IV ; Start 11/10/18 at 10:08; Stop 11/10 at 10:09; Status DC Lidocaine HCl (Lidocaine Pf 2% Vial) 5 ml STK-MED ONCE .ROUTE ; Start 11/10/18 at 10:08; Stop 11/10/18 at 10:09; Status DC Dexamethasone Sodium Phosphate (Decadron) 20 mg STK-MED ONCE .ROUTE ; Start 11/10 at 10:09; Stop 11/10/18 at 10:10; Status DC Ondansetron HCl (Zofran) 4 mg STK-MED ONCE .ROUTE ; Start 11/10/18 at 10:09; Stop 11/10/18 at 10:10; Status DC Neostigmine Methylsulfate (Neostigmine Methylsulfate) 5 mg STK-MED ONCE .ROUTE ; Start 11/10/18 at 10:09; Stop 11/10/18 at 10:10; Status DC Glycopyrrolate (Robinul) 1 mg STK-MED ONCE .ROUTE ; Start 11/10/18 at 10:09; Stop 11/10/18 at 10:10; Status DC Fentanyl Citrate (Fentanyl 2ml Vial) 100 mcg STK-MED ONCE .ROUTE ; Start at 10:10; Stop 11/10/18 at 10:11; Status DC Phenylephrine HCl (PHENYLEPHRINE in 0.9% NACL PF) 1 mg STK-MED ONCE IV ; Start 11/10/18 at 10:23; Stop 11/10/18 at 10:24; Status DC Albuterol Sulfate (Ventolin Hfa) 1 puff 1X ONCE INH ; Start 11/10/18 at 10:45; Stop 11/10/18 at 10:46; Status DC Rocuronium Watson (Zemuron) 50 mg STK-MED ONCE .ROUTE ; Start 11/10/18 at 10:36 ; Stop 11/10/18 at 10:37; Status DC Sevoflurane (Ultane) 90 ml STK-MED ONCE IH ; Start 11/10/18 at 11:52; Stop at 11:53; Status DC Amlodipine Besylate (Norvasc) 5 mg DAILY PO ; Start 11/11/18 at 09:00 Metformin HCl (Glucophage) 500 mg BIDWMEALS PO ; Start 11/10/18 at 17:00 Pantoprazole Sodium (Protonix) 40 mg DAILYAC PO ; Start 11/11/18 at 07:30; Stop 11/11/18 at 07:30; Status DC Al Hydroxide/Mg Hydroxide (Mylanta Plus Xs) 30 ml PRN Q3HRS PRN PO HEARTBURN / GAS; Start 11/10/18 at 12:00 Diphenhydramine HCl (Benadryl) 25 mg PRN Q6HRS PRN PO ITCHING; Start 11/10/18 at 12:00 Enoxaparin Sodium (Lovenox 40mg Syringe) 40 mg Q24H SQ Last administered on 11/11at 08:10; Start 11/11/18 at 09:00 Sodium Chloride (Normal Saline Flush) 3 ml QSHIFT PRN IV AFTER MEDS AND BLOOD DRAWS; Start 11/10/18 at 12:00 Potassium Chloride/Sodium Chloride 1,000 ml @ 100 mls/hr Q10H IV Last administered on 11/11/18at 01:50; Start 11/10/18 at 15:00 Hydromorphone HCl (Dilaudid) 0.5 mg PRN Q4HRS PRN IV PAIN, SEE COMMENTS Last administered on 11/10/18at 20:12; Start 11/10/18 at 12:00 Ondansetron HCl (Zofran) 4 mg PRN Q6HRS PRN IV NAUESA, 1ST CHOICE; Start at 12:00 Insulin Human Lispro (HumaLOG) 0-6 UNITS 300-39... TIDWMEALS SQ ; Start 11/10/18 at 17:00 Pantoprazole Sodium (PROTONIX VIAL for IV PUSH) 40 mg DAILYAC IVP Last administered on 11/11/18at 06:22; Start 11/11/18 at 07:30 Throat Lozenges (Chloraseptic) 1 spray PRN Q2HR PRN PO SORE THROAT; Start at 18:30 Throat Lozenges (Cepacol Sore Throat Lozenge) 1 taiwo PRN Q2HRS PRN PO SORE THROAT; Start 11/10/18 at 18:30 Hydromorphone HCl (Dilaudid) 0.5 mg PRN Q3HRS PRN IV MODERATE PAIN; Start at 22:30 Hydromorphone HCl (Dilaudid) 1 mg PRN Q3HRS PRN IV SEVERE PAIN Last administered on 11/11/18at 06:23; Start 11/10/18 at 22:30 Active Scripts Active Reported Omeprazole 20 Mg Capsule. 1 Cap PO DAILY Ferrous Sulfate 325 Mg Tablet 1 Tab PO BID Amlodipine Besylate 5 Mg Tablet 5 Mg PO DAILY Metformin Hcl 500 Mg Tablet 500 Mg PO BID Vitals/I & O Vital Sign - Last 24 Hours 11/10/18 11/10/18 11/10/18 11/10/18 12:07 12:07 12:15 12:30 Temp 98.3 98.3 98.3 98.3 98.3 98.3 Pulse 76 69 67 Resp 17 24 23 B/P (MAP) 96/51 119/55 126/54 Pulse Ox 99 99 100 O2 Delivery Simple Mask Mask Simple Mask Simple Mask O2 Flow Rate 10 10 10 10 11/10/18 11/10/18 11/10/18 11/10/18 12:45 13:00 13:15 13:15 Temp 98.3 98.3 Pulse 67 66 71 Resp 25 B/P (MAP) 123/55 126/58 125/57 Pulse Ox 100 100 96 O2 Delivery Simple Mask Simple Mask Room Air Room Air O2 Flow Rate 10 10 11/10/18 11/10/18 11/10/18 11/10/18 13:26 13:30 13:42 13:45 Temp 98.3 98.3 98.3 98.3 Pulse 77 70 Resp 20 B/P (MAP) 116/63 123/58 Pulse Ox 96 96 96 97 O2 Delivery Room Air Room Air Room Air Nasal Cannula O2 Flow Rate 3 11/10/18 11/10/18 11/10/18 11/10/18 14:00 14:07 14:16 14:17 Temp 98.8 98.8 98.8 98.8 Pulse 72 74 Resp 21 B/P (MAP) 129/59 132/63 Pulse Ox 97 99 99 O2 Delivery Nasal Cannula Nasal Cannula Nasal Cannula Nasal Cannula O2 Flow Rate 2 2 2.0 2.0 11/10/18 11/10/18 11/10/18 11/10/18 14:17 14:32 15:00 15:00 Temp 98.8 98.8 Pulse 74 70 Resp B/P (MAP) 128/65 135/61 (85) Pulse Ox 99 100 100 O2 Delivery Nasal Cannula Nasal Cannula Nasal Cannula Nasal Cannula O2 Flow Rate 2.0 2.0 2.0 2.0 11/10/18 11/10/18 11/10/18 11/10/18 15:15 15:30 15:45 15:47 Pulse 74 73 73 B/P (MAP) 133/63 (86) 135/63 (87) 133/66 (88) Pulse Ox 100 100 100 100 O2 Delivery Nasal Cannula Nasal Cannula Nasal Cannula Nasal Cannula O2 Flow Rate 2.0 2.0 2.0 2.0 11/10/18 11/10/18 11/10/18 11/10/18 15:50 16:15 16:45 16:53 Pulse 78 B/P (MAP) 139/65 (89) 136/68 (90) Pulse Ox 100 100 100 100 O2 Delivery Nasal Cannula Nasal Cannula Room Air O2 Flow Rate 2.0 2.0 2.0 11/10/18 11/10/18 11/10/18 11/10/18 17:00 19:00 20:00 20:12 Temp 97.9 97.9 Pulse 79 82 Resp 16 18 B/P (MAP) 137/71 (93) 146/68 (94) Pulse Ox 97 95 O2 Delivery Room Air Room Air Room Air Room Air 11/10/18 11/10/18 11/10/18 11/11/18 20:42 22:50 23:00 03:00 Temp 98.6 97.8 98.6 97.8 Pulse 84 81 Resp 16 16 18 18 B/P (MAP) 136/58 (84) 135/53 (80) Pulse Ox 95 93 O2 Delivery Room Air Room Air Room Air Room Air 11/11/18 11/11/18 11/11/18 11/11/18 06:23 06:53 07:00 07:00 Temp 98.1 98.1 Pulse 76 Resp 18 20 16 B/P (MAP) 145/74 (97) Pulse Ox 96 O2 Delivery Room Air Room Air Room Air Room Air Intake and Output 11/10/18 11/10/18 11/11/18 15:00 23:00 07:00 Intake Total 2220 ml Output Total 150 ml 100 ml 650 ml Balance 2070 ml -100 ml -650 ml DAVRIN MCCALLUM MD Nov 11, 2018 10:31
--- NOTE | 2018-11-11 10:38 | CONS ---
DATE OF CONSULTATION: 11/10/2018 LOCATION: She is in room 444. ATTENDING PHYSICIAN: DANITA CORBIN MD. REASON FOR CONSULTATION: Medical management. HISTORY OF PRESENT ILLNESS: The patient is an 82-year-old -[place] female with a history of diabetes mellitus type 2 and hypertension, had a workup at [facility] for heme positive stools and underwent a colonoscopy in 09/03/2018 and had a biopsy of a colonic mass at the hepatic flexure. She also had an EGD at that time, which showed gastritis. There was a question of also duodenal ulcer. 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 She then was noted to have some swelling in her left leg and had a venous Doppler, which was positive for a left distal superficial femoral vein and popliteal vein thrombosis on 10/24/2018 and underwent a placement of an inferior vena cava filter. She still had heme positive stools and also had acute blood loss anemia and received 2 units of packed red blood cells as an outpatient. The patient received cardiology clearance and had an echocardiogram, which I believe showed a preserved left ventricular ejection fraction and was subsequently admitted. She also had a CAT scan of the abdomen and pelvis done on 10/31/2018, which showed nodular thickening of the hepatic flexure and ascending colon. She had two small liver lesions, which probably represented cysts. The patient was subsequently admitted to [facility] on 11/10/2018. Dr. Corbin did a laparoscopic-assisted right colon resection for the adenocarcinoma of the right hepatic flexure. The reason for this consultation is for medical evaluation and management. She was seen postoperatively. Daughter is in the room. She just received analgesics and sleepy right now. Otherwise, she is comfortable. ALLERGIES AND INTOLERANCES: None. MEDICATIONS: Prior to admission include amlodipine 5 mg every day, ferrous sulfate 325 mg b.i.d., metformin 500 mg b.i.d., omeprazole 40 mg every day. PAST MEDICAL HISTORY: Significant for the recently diagnosed adenocarcinoma of the colon at the hepatic flexure by colonoscopy. Gastritis and a possible duodenal ulcer on EGD 09/03/2018 and placement of inferior vena cava filter for a left distal superficial femoral and popliteal vein thrombosis in 10/24/2018. As mentioned, she has diabetes mellitus type 2 and hypertension. She has had a cataract extraction and D and C in the past. SOCIAL HISTORY: She does not drink alcohol nor does she smoke cigarettes. She did smoke in the past, however. FAMILY HISTORY: Positive for mother with diabetes mellitus. REVIEW OF SYSTEMS: GENERAL: There has been no fever, chills or sweats in the last 3 days. CARDIOVASCULAR: No chest pain. PULMONARY: No cough or shortness of breath. GASTROINTESTINAL: No diarrhea. ENDOCRINE: She has diabetes mellitus. Rest of systems reviewed are negative except as stated in history of present illness. PHYSICAL EXAMINATION: VITAL SIGNS: Temperature is 98.8 degrees. Apical pulse is 73, respiratory rate is 18, blood pressure is 135/63, oxygen saturation 100% on 2 liters per nasal cannula. HEENT: Eyes: Gaze is conjugate. Mouth is symmetrical. NECK: There is no cervical lymphadenopathy or thyroid enlargement. HEART: Reveals an S1, S2. There is no S3 or murmur. LUNGS: Clear anteriorly. ABDOMEN: Soft. She has got a dry dressing over abdomen. LOWER EXTREMITIES: Without edema. SKIN: No rashes. NEUROLOGIC: Revealed no facial asymmetry. No focal weakness in arms or legs. Fingerstick blood sugar was 114 at 8:44 this morning and 180 at 12:12 today. ASSESSMENT: 1. Laparoscopy-assisted right hemicolectomy for adenocarcinoma of the colon. 2. Acute blood loss anemia prior to her surgery. 3. Diabetes mellitus type 2. 4. Hypertension. 5. She has an IVC filter for a deep vein thrombosis of the left leg. 6. Gastritis. PLAN: At this time is to continue with her IV fluids. She is currently n.p.o. We will check her blood sugars every 6 hours, a very low dose NovoLog insulin sliding scales since she is not receiving any dextrose. When she can take p.o., we will start her on metformin. With a history of gastritis, we can give her the Protonix IV and will resume the amlodipine once she can take p.o. I see that she started on Lovenox for deep vein thrombosis prophylaxis. I will check a CBC and BMP tomorrow. Thank you very much Dr. Corbin for the consultation. DARVIN MCCALLUM MD DR: RENY/ghulam JOB#: [id number] / [id number]
[2018-11-11 11:00] VITALS: BP 94/64
--- NOTE | 2018-11-11 11:51 | NUR ---
SW following for discharge planning. Discussed with RN, pt is from home alone and has family involved. SW awaiting PT/OT for discharge recommendations.
--- NOTE | 2018-11-11 12:03 | NUR ---
Dr. Zavaleta paged re: Pain meds, pt feels they may be too strong. Pt. c/o head spinning and "feeling full".
--- NOTE | 2018-11-11 12:20 | NUR ---
Dr. Zavaleta returned call, orders received.
[2018-11-11 15:00] VITALS: BP 116/62
--- NOTE | 2018-11-11 16:29 | RAD ---
Single view of the chest. 11/11/2018 2:57 PM Indication: leukocytosis,crackles RLL Comparison: Chest radiograph October 24, 2018 Findings: Markedly reduced inspiratory volumes are noted which augment the cardiomediastinal silhouette and pulmonary vasculature. No pneumothorax or definitive effusion is seen. Diffuse interstitial thickening is likely unchanged. No acute osseous changes are identified. IMPRESSION: Low lung volumes. Otherwise similar appearance of the chest. Consider follow-up two-view chest radiograph, with attention to depth of inspiration. Electronically signed by: Fracisco De Oliveira MD (11/11/2018 4:26 PM) [id number]
[2018-11-11] MEDS: HYDROcodone/APAP 5/325MG 1 TAB TABLET PO PRN ×2 (16:59→20:48)
[2018-11-11 18:20] LABS: BILIRUBIN,URINE NEGATIVE (NEG); CLARITY,URINE CLEAR; COLOR,URINE YELLOW; NITRITE,URINE NEGATIVE (NEG); PROTEIN,URINE NEGATIVE (NEG-TRACE); UROBILINOGEN,URINE 0.2 mg/dL (0.2 mg/dL)
[2018-11-11 18:44] LABS: BACTERIA,URINE FEW /HPF (0-FEW); HYALINE CASTS, URINE FEW /HPF; SQUAMOUS EPITHELIAL CELL,UR FEW /LPF
[2018-11-11 19:00] VITALS: BP 164/76
[2018-11-11] MEDS ORDERED: MORPHINE SULFATE 2 MG/ML VIAL. IV PRN (20:00)
[2018-11-11 23:00] VITALS: BP 155/72
[2018-11-12 03:00] VITALS: BP 160/74
[2018-11-12 03:32] LABS: BASO # 0.1 x10^3/uL (0.0-0.2); BASO % 1 % (0-3); EOS # 0.1 x10^3/uL (0.0-0.7); EOS % 1 % (0-3); HEMATOCRIT 25.6 % (36.0-47.0); LYMPH # 2.4 x10^3/uL (1.0-4.8); LYMPH % 22 % (24-48); MEAN CORPUSCULAR HEMOGLOBIN 25 pg (25-35); MEAN CORPUSCULAR HGB CONC 31 g/dL (31-37); MEAN CORPUSCULAR VOLUME 80 fL (79-100); MONO # 0.9 x10^3/uL (0.0-1.1); MONO % 9 % (0-9); NEUT # 7.6 x10^3uL (1.8-7.7); NEUT % 68 % (31-73); PLATELET COUNT 325 x10^3/uL (140-400); RED BLOOD COUNT 3.21 x10^6/uL (3.50-5.40); RED CELL DISTRIBUTION WIDTH 20.7 % (11.5-14.5); WHITE BLOOD COUNT 11.1 x10^3/uL (4.0-11.0)
[2018-11-12 03:59] LABS: CREATININE 0.9 mg/dL (0.6-1.0); GFR 72.2; POTASSIUM 4.2 mmol/L (3.5-5.1)
[2018-11-12] MEDS: POTASSIUM CL 20MEQ-0.45% NACL 1,000 ML IV SCH ×2 (03:59→17:55)
[2018-11-12] MEDS: HYDROcodone/APAP 5/325MG 1 TAB TABLET PO PRN ×2 (05:20→09:33)
[2018-11-12] MEDS: PANTOPRAZOLE IV PUSH 40 MG VIAL. IVP SCH (05:20)
[2018-11-12 07:00] VITALS: BP 148/66
[2018-11-12] MEDS: INSULIN LISPRO 300 UNITS/3 ML INSULN.PEN. SQ SCH ×3 (08:30→16:58)
[2018-11-12] MEDS: amLODIPine BESYLATE 5 MG TABLET PO SCH (09:32)
[2018-11-12] MEDS: metFORMIN 500 MG TABLET PO SCH (09:32)
[2018-11-12] MEDS: ENOXAPARIN 40 MG/0.4 ML SYRINGE. SQ SCH (09:35)
--- NOTE | 2018-11-12 09:36 | PDOC ---
SURGICAL PROGRESS NOTE Subjective tired of jell-O has been out of bed has been able to void after catheter removed Vital Signs Vital Signs Date Time Temp Pulse Resp B/P (MAP) Pulse Ox O2 Delivery O2 Flow Rate FiO2 11/12/18 08:00 Room Air 2.0 11/12/18 07:00 98.6 79 20 148/66 (93) 100 98.6 I&O Intake and Output 11/12/18 06:59 Output Total 1700 ml Balance -1700 ml Output Urine Total 1700 ml # Voids 1 PATIENT HAS A QUINONES: No General: Alert, No acute distress Abdomen: Soft Labs Laboratory Tests Test 11/10/18 12:12 11/10/18 16:47 11/10/18 20:41 11/11/18 02:35 Glucose (Fingerstick) 180 mg/dL (70-99) 192 mg/dL (70-99) 161 mg/dL (70-99) White Blood Count 17.6 x10^3/uL (4.0-11.0) Red Blood Count 3.28 x10^6/uL (3.50-5.40) Hemoglobin 8.2 g/dL (12.0-15.5) Hematocrit 26.3 % (36.0-47.0) Mean Corpuscular Volume 80 fL (79-100) Mean Corpuscular Hemoglobin 25 pg (25-35) Mean Corpuscular Hemoglobin Concent 31 g/dL (31-37) Red Cell Distribution Width 19.6 % (11.5-14.5) Platelet Count 361 x10^3/uL (140-400) Neutrophils (%) (Auto) 77 % (31-73) Lymphocytes (%) (Auto) 16 % (24-48) Monocytes (%) (Auto) 7 % (0-9) Eosinophils (%) (Auto) 0 % (0-3) Basophils (%) (Auto) 0 % (0-3) Neutrophils # (Auto) 13.6 x10^3uL (1.8-7.7) Lymphocytes # (Auto) 2.9 x10^3/uL (1.0-4.8) Monocytes # (Auto) 1.2 x10^3/uL (0.0-1.1) Eosinophils # (Auto) 0.0 x10^3/uL (0.0-0.7) Basophils # (Auto) 0.0 x10^3/uL (0.0-0.2) Segmented Neutrophils % 82 % (35-66) Band Neutrophils % 1 % (0-9) Lymphocytes % 13 % (24-48) Monocytes % 4 % (0-10) Platelet Estimate Adequate (ADEQUATE) Polychromasia Slight Hypochromasia Slight Anisocytosis Slight Spherocytes Occ Schistocytes Occ Sodium Level 138 mmol/L (136-145) Potassium Level 4.5 mmol/L (3.5-5.1) Chloride Level 105 mmol/L (98-107) Carbon Dioxide Level 21 mmol/L (21-32) Anion Gap 12 (6-14) Blood Urea Nitrogen 5 mg/dL (7-20) Creatinine 0.9 mg/dL (0.6-1.0) Estimated GFR (Cockcroft-Gault) 72.2 Glucose Level 140 mg/dL (70-99) Calcium Level 8.9 mg/dL (8.5-10.1) Test 11/11/18 07:58 11/11/18 11:50 11/11/18 16:56 11/11/18 18:15 Glucose (Fingerstick) 121 mg/dL (70-99) 111 mg/dL (70-99) 130 mg/dL (70-99) Urine Collection Type Unknown Urine Color Yellow Urine Clarity Clear Urine pH 5.0 Urine Specific [place] 1.015 Urine Protein Negative mg/dL (NEG-TRACE) Urine Glucose (UA) Negative mg/dL (NEG) Urine Ketones (Stick) Negative mg/dL (NEG) Urine Blood Large (NEG) Urine Nitrite Negative (NEG) Urine Bilirubin Negative (NEG) Urine Urobilinogen Dipstick 0.2 mg/dL (0.2 mg/dL) Urine Leukocyte Esterase Moderate (NEG) Urine RBC 11-20 /HPF (0-2) Urine WBC 1-4 /HPF (0-4) Urine Squamous Epithelial Cells Few /LPF Urine Bacteria Few /HPF (0-FEW) Urine Hyaline Casts Few /HPF Urine Mucus Marked /LPF Test 11/11/18 21:00 11/12/18 03:05 11/12/18 07:26 Glucose (Fingerstick) 119 mg/dL (70-99) 119 mg/dL (70-99) White Blood Count 11.1 x10^3/uL (4.0-11.0) Red Blood Count 3.21 x10^6/uL (3.50-5.40) Hemoglobin 8.0 g/dL (12.0-15.5) Hematocrit 25.6 % (36.0-47.0) Mean Corpuscular Volume 80 fL (79-100) Mean Corpuscular Hemoglobin 25 pg (25-35) Mean Corpuscular Hemoglobin Concent 31 g/dL (31-37) Red Cell Distribution Width 20.7 % (11.5-14.5) Platelet Count 325 x10^3/uL (140-400) Neutrophils (%) (Auto) 68 % (31-73) Lymphocytes (%) (Auto) 22 % (24-48) Monocytes (%) (Auto) 9 % (0-9) Eosinophils (%) (Auto) 1 % (0-3) Basophils (%) (Auto) 1 % (0-3) Neutrophils # (Auto) 7.6 x10^3uL (1.8-7.7) Lymphocytes # (Auto) 2.4 x10^3/uL (1.0-4.8) Monocytes # (Auto) 0.9 x10^3/uL (0.0-1.1) Eosinophils # (Auto) 0.1 x10^3/uL (0.0-0.7) Basophils # (Auto) 0.1 x10^3/uL (0.0-0.2) Sodium Level 137 mmol/L (136-145) Potassium Level 4.2 mmol/L (3.5-5.1) Chloride Level 104 mmol/L (98-107) Carbon Dioxide Level 24 mmol/L (21-32) Anion Gap 9 (6-14) Blood Urea Nitrogen 4 mg/dL (7-20) Creatinine 0.9 mg/dL (0.6-1.0) Estimated GFR (Cockcroft-Gault) 72.2 Glucose Level 124 mg/dL (70-99) Calcium Level 9.0 mg/dL (8.5-10.1) Laboratory Tests Test 11/11/18 11:50 11/11/18 16:56 11/11/18 18:15 11/11/18 21:00 Glucose (Fingerstick) 111 mg/dL (70-99) 130 mg/dL (70-99) 119 mg/dL (70-99) Urine Collection Type Unknown Urine Color Yellow Urine Clarity Clear Urine pH 5.0 Urine Specific [place] 1.015 Urine Protein Negative mg/dL (NEG-TRACE) Urine Glucose (UA) Negative mg/dL (NEG) Urine Ketones (Stick) Negative mg/dL (NEG) Urine Blood Large (NEG) Urine Nitrite Negative (NEG) Urine Bilirubin Negative (NEG) Urine Urobilinogen Dipstick 0.2 mg/dL (0.2 mg/dL) Urine Leukocyte Esterase Moderate (NEG) Urine RBC 11-20 /HPF (0-2) Urine WBC 1-4 /HPF (0-4) Urine Squamous Epithelial Cells Few /LPF Urine Bacteria Few /HPF (0-FEW) Urine Hyaline Casts Few /HPF Urine Mucus Marked /LPF Test 11/12/18 03:05 11/12/18 07:26 White Blood Count 11.1 x10^3/uL (4.0-11.0) Red Blood Count 3.21 x10^6/uL (3.50-5.40) Hemoglobin 8.0 g/dL (12.0-15.5) Hematocrit 25.6 % (36.0-47.0) Mean Corpuscular Volume 80 fL (79-100) Mean Corpuscular Hemoglobin 25 pg (25-35) Mean Corpuscular Hemoglobin Concent 31 g/dL (31-37) Red Cell Distribution Width 20.7 % (11.5-14.5) Platelet Count 325 x10^3/uL (140-400) Neutrophils (%) (Auto) 68 % (31-73) Lymphocytes (%) (Auto) 22 % (24-48) Monocytes (%) (Auto) 9 % (0-9) Eosinophils (%) (Auto) 1 % (0-3) Basophils (%) (Auto) 1 % (0-3) Neutrophils # (Auto) 7.6 x10^3uL (1.8-7.7) Lymphocytes # (Auto) 2.4 x10^3/uL (1.0-4.8) Monocytes # (Auto) 0.9 x10^3/uL (0.0-1.1) Eosinophils # (Auto) 0.1 x10^3/uL (0.0-0.7) Basophils # (Auto) 0.1 x10^3/uL (0.0-0.2) Sodium Level 137 mmol/L (136-145) Potassium Level 4.2 mmol/L (3.5-5.1) Chloride Level 104 mmol/L (98-107) Carbon Dioxide Level 24 mmol/L (21-32) Anion Gap 9 (6-14) Blood Urea Nitrogen 4 mg/dL (7-20) Creatinine 0.9 mg/dL (0.6-1.0) Estimated GFR (Cockcroft-Gault) 72.2 Glucose Level 124 mg/dL (70-99) Calcium Level 9.0 mg/dL (8.5-10.1) Glucose (Fingerstick) 119 mg/dL (70-99) Assessment/Plan POD 2 right colon advance to full liquids ambulate DANITA OHARA MD Nov 12, 2018 09:36
[2018-11-12] MEDS ORDERED: ACETAMINOPHEN 325 MG TABLET. PO PRN (10:30)
--- NOTE | 2018-11-12 10:32 | PDOC ---
PROGRESS NOTES Subjective Subjective feels better. no vomiting. tolerates clear liquids. bp and blood sugars are okay. lab reviewed. wbc down to 11.1 . hgb 8 and will start ferrous sulfate. has not had a BM yet but feels like she might.. cxr and urinalysis negative. Objective Objective Vital Signs Date Time Temp Pulse Resp B/P (MAP) Pulse Ox O2 Delivery O2 Flow Rate FiO2 11/12/18 09:33 Room Air 11/12/18 09:32 79 148/66 11/12/18 08:00 2.0 11/12/18 07:00 98.6 20 100 98.6 Intake and Output 11/12/18 06:59 Output Total 1700 ml Balance -1700 ml Output Urine Total 1700 ml # Voids 1 Physical Exam Abdomen: Soft Heart: Regular rate, Normal S1, Normal S2 Extremities: No edema General: Alert HEENT: Atraumatic Lungs: Clear to auscultation Neuro: Normal speech Psych/Mental Status: Mental status NL Skin: No rashes Assessment Assessment laparoscopic assisted right colon resection for hepatic flexure adenocarcinoma of colon acute blood loss anemia leukocytosis diabetes mellitus type 2 hypertension history of recent IVC filter for LLE DVT Plan Plan of Care advance to full liquids start ferrous sulfate PT and OT tylenol and norco prn d/c iv morphine prn continue amlodipine continue metformin Comment Review of Relevant I have reviewed the following items nuria (where applicable) has been applied. Labs Laboratory Tests Test 11/10/18 12:12 11/10/18 16:47 11/10/18 20:41 11/11/18 02:35 Glucose (Fingerstick) 180 mg/dL (70-99) 192 mg/dL (70-99) 161 mg/dL (70-99) White Blood Count 17.6 x10^3/uL (4.0-11.0) Red Blood Count 3.28 x10^6/uL (3.50-5.40) Hemoglobin 8.2 g/dL (12.0-15.5) Hematocrit 26.3 % (36.0-47.0) Mean Corpuscular Volume 80 fL (79-100) Mean Corpuscular Hemoglobin 25 pg (25-35) Mean Corpuscular Hemoglobin Concent 31 g/dL (31-37) Red Cell Distribution Width 19.6 % (11.5-14.5) Platelet Count 361 x10^3/uL (140-400) Neutrophils (%) (Auto) 77 % (31-73) Lymphocytes (%) (Auto) 16 % (24-48) Monocytes (%) (Auto) 7 % (0-9) Eosinophils (%) (Auto) 0 % (0-3) Basophils (%) (Auto) 0 % (0-3) Neutrophils # (Auto) 13.6 x10^3uL (1.8-7.7) Lymphocytes # (Auto) 2.9 x10^3/uL (1.0-4.8) Monocytes # (Auto) 1.2 x10^3/uL (0.0-1.1) Eosinophils # (Auto) 0.0 x10^3/uL (0.0-0.7) Basophils # (Auto) 0.0 x10^3/uL (0.0-0.2) Segmented Neutrophils % 82 % (35-66) Band Neutrophils % 1 % (0-9) Lymphocytes % 13 % (24-48) Monocytes % 4 % (0-10) Platelet Estimate Adequate (ADEQUATE) Polychromasia Slight Hypochromasia Slight Anisocytosis Slight Spherocytes Occ Schistocytes Occ Sodium Level 138 mmol/L (136-145) Potassium Level 4.5 mmol/L (3.5-5.1) Chloride Level 105 mmol/L (98-107) Carbon Dioxide Level 21 mmol/L (21-32) Anion Gap 12 (6-14) Blood Urea Nitrogen 5 mg/dL (7-20) Creatinine 0.9 mg/dL (0.6-1.0) Estimated GFR (Cockcroft-Gault) 72.2 Glucose Level 140 mg/dL (70-99) Calcium Level 8.9 mg/dL (8.5-10.1) Test 11/11/18 07:58 11/11/18 11:50 11/11/18 16:56 11/11/18 18:15 Glucose (Fingerstick) 121 mg/dL (70-99) 111 mg/dL (70-99) 130 mg/dL (70-99) Urine Collection Type Unknown Urine Color Yellow Urine Clarity Clear Urine pH 5.0 Urine Specific [place] 1.015 Urine Protein Negative mg/dL (NEG-TRACE) Urine Glucose (UA) Negative mg/dL (NEG) Urine Ketones (Stick) Negative mg/dL (NEG) Urine Blood Large (NEG) Urine Nitrite Negative (NEG) Urine Bilirubin Negative (NEG) Urine Urobilinogen Dipstick 0.2 mg/dL (0.2 mg/dL) Urine Leukocyte Esterase Moderate (NEG) Urine RBC 11-20 /HPF (0-2) Urine WBC 1-4 /HPF (0-4) Urine Squamous Epithelial Cells Few /LPF Urine Bacteria Few /HPF (0-FEW) Urine Hyaline Casts Few /HPF Urine Mucus Marked /LPF Test 11/11/18 21:00 11/12/18 03:05 11/12/18 07:26 Glucose (Fingerstick) 119 mg/dL (70-99) 119 mg/dL (70-99) White Blood Count 11.1 x10^3/uL (4.0-11.0) Red Blood Count 3.21 x10^6/uL (3.50-5.40) Hemoglobin 8.0 g/dL (12.0-15.5) Hematocrit 25.6 % (36.0-47.0) Mean Corpuscular Volume 80 fL (79-100) Mean Corpuscular Hemoglobin 25 pg (25-35) Mean Corpuscular Hemoglobin Concent 31 g/dL (31-37) Red Cell Distribution Width 20.7 % (11.5-14.5) Platelet Count 325 x10^3/uL (140-400) Neutrophils (%) (Auto) 68 % (31-73) Lymphocytes (%) (Auto) 22 % (24-48) Monocytes (%) (Auto) 9 % (0-9) Eosinophils (%) (Auto) 1 % (0-3) Basophils (%) (Auto) 1 % (0-3) Neutrophils # (Auto) 7.6 x10^3uL (1.8-7.7) Lymphocytes # (Auto) 2.4 x10^3/uL (1.0-4.8) Monocytes # (Auto) 0.9 x10^3/uL (0.0-1.1) Eosinophils # (Auto) 0.1 x10^3/uL (0.0-0.7) Basophils # (Auto) 0.1 x10^3/uL (0.0-0.2) Sodium Level 137 mmol/L (136-145) Potassium Level 4.2 mmol/L (3.5-5.1) Chloride Level 104 mmol/L (98-107) Carbon Dioxide Level 24 mmol/L (21-32) Anion Gap 9 (6-14) Blood Urea Nitrogen 4 mg/dL (7-20) Creatinine 0.9 mg/dL (0.6-1.0) Estimated GFR (Cockcroft-Gault) 72.2 Glucose Level 124 mg/dL (70-99) Calcium Level 9.0 mg/dL (8.5-10.1) Laboratory Tests Test 11/11/18 11:50 11/11/18 16:56 11/11/18 18:15 11/11/18 21:00 Glucose (Fingerstick) 111 mg/dL (70-99) 130 mg/dL (70-99) 119 mg/dL (70-99) Urine Collection Type Unknown Urine Color Yellow Urine Clarity Clear Urine pH 5.0 Urine Specific [place] 1.015 Urine Protein Negative mg/dL (NEG-TRACE) Urine Glucose (UA) Negative mg/dL (NEG) Urine Ketones (Stick) Negative mg/dL (NEG) Urine Blood Large (NEG) Urine Nitrite Negative (NEG) Urine Bilirubin Negative (NEG) Urine Urobilinogen Dipstick 0.2 mg/dL (0.2 mg/dL) Urine Leukocyte Esterase Moderate (NEG) Urine RBC 11-20 /HPF (0-2) Urine WBC 1-4 /HPF (0-4) Urine Squamous Epithelial Cells Few /LPF Urine Bacteria Few /HPF (0-FEW) Urine Hyaline Casts Few /HPF Urine Mucus Marked /LPF Test 11/12/18 03:05 11/12/18 07:26 White Blood Count 11.1 x10^3/uL (4.0-11.0) Red Blood Count 3.21 x10^6/uL (3.50-5.40) Hemoglobin 8.0 g/dL (12.0-15.5) Hematocrit 25.6 % (36.0-47.0) Mean Corpuscular Volume 80 fL (79-100) Mean Corpuscular Hemoglobin 25 pg (25-35) Mean Corpuscular Hemoglobin Concent 31 g/dL (31-37) Red Cell Distribution Width 20.7 % (11.5-14.5) Platelet Count 325 x10^3/uL (140-400) Neutrophils (%) (Auto) 68 % (31-73) Lymphocytes (%) (Auto) 22 % (24-48) Monocytes (%) (Auto) 9 % (0-9) Eosinophils (%) (Auto) 1 % (0-3) Basophils (%) (Auto) 1 % (0-3) Neutrophils # (Auto) 7.6 x10^3uL (1.8-7.7) Lymphocytes # (Auto) 2.4 x10^3/uL (1.0-4.8) Monocytes # (Auto) 0.9 x10^3/uL (0.0-1.1) Eosinophils # (Auto) 0.1 x10^3/uL (0.0-0.7) Basophils # (Auto) 0.1 x10^3/uL (0.0-0.2) Sodium Level 137 mmol/L (136-145) Potassium Level 4.2 mmol/L (3.5-5.1) Chloride Level 104 mmol/L (98-107) Carbon Dioxide Level 24 mmol/L (21-32) Anion Gap 9 (6-14) Blood Urea Nitrogen 4 mg/dL (7-20) Creatinine 0.9 mg/dL (0.6-1.0) Estimated GFR (Cockcroft-Gault) 72.2 Glucose Level 124 mg/dL (70-99) Calcium Level 9.0 mg/dL (8.5-10.1) Glucose (Fingerstick) 119 mg/dL (70-99) Medications Current Medications Ondansetron HCl (Zofran) 4 mg PRN Q6HRS PRN IV NAUSEA/VOMITING Last administered on 11/10/18at 13:39; Start 11/10/18 at 07:00; Stop 11/11/18 at 06:59; Status DC Fentanyl Citrate (Fentanyl 2ml Vial) 25 mcg PRN Q5MIN PRN IV MILD PAIN; Start 11/10/18 at 07:00; Stop 11/11/18 at 06:59; Status DC Fentanyl Citrate (Fentanyl 2ml Vial) 50 mcg PRN Q5MIN PRN IV MODERATE TO SEVERE PAIN Last administered on 11/10/18at 13:42; Start 11/10/18 at 07:00; Stop at 06:59; Status DC Morphine Sulfate (Morphine Sulfate) 1 mg PRN Q10MIN PRN IV SEVERE PAIN Last administered on 11/10/18at 14:32; Start 11/10/18 at 07:00; Stop 11/11/18 at 06:59; Status DC Ringer's Solution 1,000 ml @ 30 mls/hr Q24H IV Last administered on 11/10/18at 14:31; Start 11/10/18 at 07:00; Stop 11/10/18 at 18:59; Status DC Lidocaine HCl (Xylocaine-Mpf 1% 2ml Vial) 2 ml PRN 1X PRN ID PRIOR TO IV START ; Start 11/10/18 at 07:00; Stop 11/11/18 at 06:59; Status DC Hydromorphone HCl (Dilaudid) 0.5 mg PRN Q10MIN PRN IV SEV PAIN, Second choice; Start 11/10/18 at 07:00; Stop 11/11/18 at 06:59; Status DC Prochlorperazine Edisylate (Compazine) 5 mg PACU PRN PRN IV NAUSEA, MRX1 Last administered on 11/10/18at 13:22; Start 11/10/18 at 07:00; Stop 11/11/18 at 06:59; Status DC Cefazolin Sodium/ Dextrose 50 ml @ 100 mls/hr 1X PREOP PRN IV PRIOR TO PROCEDURE; Start 11/10/18 at 06:00; Stop 11/10/18 at 18:00; Status DC Metronidazole 100 ml @ 100 mls/hr 1X PREOP PRN IV PRIOR TO PROCEDURE; Start at 06:00; Stop 11/10/18 at 18:00; Status DC Bupivacaine HCl/ Epinephrine Bitart (Sensorcain-Mpf Epi 0.5%-[id number]) 30 ml STK -MED ONCE .ROUTE Last administered on 11/10/18at 10:00; Start 11/10/18 at 08:21; Stop 11/10/18 at 09:21; Status DC Rocuronium Ingram (Zemuron) 50 mg STK-MED ONCE .ROUTE ; Start 11/10/18 at 09:31 ; Stop 11/10/18 at 09:32; Status DC Desflurane (Suprane) 60 ml STK-MED ONCE IH ; Start 11/10/18 at 10:08; Stop at 10:09; Status DC Propofol 20 ml @ As Directed STK-MED ONCE IV ; Start 11/10/18 at 10:08; Stop 11/10 at 10:09; Status DC Lidocaine HCl (Lidocaine Pf 2% Vial) 5 ml STK-MED ONCE .ROUTE ; Start 11/10/18 at 10:08; Stop 11/10/18 at 10:09; Status DC Dexamethasone Sodium Phosphate (Decadron) 20 mg STK-MED ONCE .ROUTE ; Start 11/10 at 10:09; Stop 11/10/18 at 10:10; Status DC Ondansetron HCl (Zofran) 4 mg STK-MED ONCE .ROUTE ; Start 11/10/18 at 10:09; Stop 11/10/18 at 10:10; Status DC Neostigmine Methylsulfate (Neostigmine Methylsulfate) 5 mg STK-MED ONCE .ROUTE ; Start 11/10/18 at 10:09; Stop 11/10/18 at 10:10; Status DC Glycopyrrolate (Robinul) 1 mg STK-MED ONCE .ROUTE ; Start 11/10/18 at 10:09; Stop 11/10/18 at 10:10; Status DC Fentanyl Citrate (Fentanyl 2ml Vial) 100 mcg STK-MED ONCE .ROUTE ; Start at 10:10; Stop 11/10/18 at 10:11; Status DC Phenylephrine HCl (PHENYLEPHRINE in 0.9% NACL PF) 1 mg STK-MED ONCE IV ; Start 11/10/18 at 10:23; Stop 11/10/18 at 10:24; Status DC Albuterol Sulfate (Ventolin Hfa) 1 puff 1X ONCE INH ; Start 11/10/18 at 10:45; Stop 11/10/18 at 10:46; Status DC Rocuronium Ingram (Zemuron) 50 mg STK-MED ONCE .ROUTE ; Start 11/10/18 at 10:36 ; Stop 11/10/18 at 10:37; Status DC Sevoflurane (Ultane) 90 ml STK-MED ONCE IH ; Start 11/10/18 at 11:52; Stop at 11:53; Status DC Amlodipine Besylate (Norvasc) 5 mg DAILY PO Last administered on 11/12/18at 09:32 ; Start 11/11/18 at 09:00 Metformin HCl (Glucophage) 500 mg BIDWMEALS PO Last administered on 11/12/18at 09 :32; Start 11/10/18 at 17:00 Pantoprazole Sodium (Protonix) 40 mg DAILYAC PO ; Start 11/11/18 at 07:30; Stop 11/11/18 at 07:30; Status DC Al Hydroxide/Mg Hydroxide (Mylanta Plus Xs) 30 ml PRN Q3HRS PRN PO HEARTBURN / GAS; Start 11/10/18 at 12:00 Diphenhydramine HCl (Benadryl) 25 mg PRN Q6HRS PRN PO ITCHING; Start 11/10/18 at 12:00 Enoxaparin Sodium (Lovenox 40mg Syringe) 40 mg Q24H SQ Last administered on 11/12at 09:35; Start 11/11/18 at 09:00 Sodium Chloride (Normal Saline Flush) 3 ml QSHIFT PRN IV AFTER MEDS AND BLOOD DRAWS; Start 11/10/18 at 12:00 Potassium Chloride/Sodium Chloride 1,000 ml @ 60 mls/hr [id number] IV Last administered on 11/12/18at 03:59; Start 11/10/18 at 15:00 Hydromorphone HCl (Dilaudid) 0.5 mg PRN Q4HRS PRN IV PAIN, SEE COMMENTS Last administered on 11/10/18at 20:12; Start 11/10/18 at 12:00; Stop 11/11/18 at 10:31; Status DC Ondansetron HCl (Zofran) 4 mg PRN Q6HRS PRN IV NAUESA, 1ST CHOICE; Start at 12:00 Insulin Human Lispro (HumaLOG) 0-6 UNITS 300-39... TIDWMEALS SQ ; Start 11/10/18 at 17:00; Stop 11/11/18 at 10:35; Status DC Pantoprazole Sodium (PROTONIX VIAL for IV PUSH) 40 mg DAILYAC IVP Last administered on 11/12/18at 05:20; Start 11/11/18 at 07:30 Throat Lozenges (Chloraseptic) 1 spray PRN Q2HR PRN PO SORE THROAT, 2ND CHOICE ; Start 11/10/18 at 18:30 Throat Lozenges (Cepacol Sore Throat Lozenge) 1 taiwo PRN Q2HRS PRN PO SORE THROAT, 1ST CHOICE; Start 11/10/18 at 18:30 Hydromorphone HCl (Dilaudid) 0.5 mg PRN Q3HRS PRN IV MODERATE PAIN; Start at 22:30; Stop 11/11/18 at 12:22; Status DC Hydromorphone HCl (Dilaudid) 1 mg PRN Q3HRS PRN IV SEVERE PAIN Last administered on 11/11/18at 11:21; Start 11/10/18 at 22:30; Stop 11/11/18 at 12:22; Status DC Insulin Human Lispro (HumaLOG) 0-6 UNITS BG 300-39... TIDWMEALS SQ ; Start at 12:00 Metronidazole (FLAGYL 500Mmg PREMIX) 500 mg STK-MED ONCE IV ; Start 11/10/18 at 09:00; Stop 11/11/18 at 11:24; Status DC Acetaminophen/ Hydrocodone Bitart (Lortab 5/325) 1 tab PRN Q4HRS PRN PO MODERATE TO SEVERE PAIN Last administered on 11/12/18at 09:33; Start 11/11/18 at 12 :30 Morphine Sulfate (Morphine Sulfate) 1 mg PRN Q1HR PRN IV PAIN Last administered on 11/11/18at 23:29; Start 11/11/18 at 20:00 Active Scripts Active Reported Omeprazole 20 Mg Capsule.dr 1 Cap PO DAILY Ferrous Sulfate 325 Mg Tablet 1 Tab PO BID Amlodipine Besylate 5 Mg Tablet 5 Mg PO DAILY Metformin Hcl 500 Mg Tablet 500 Mg PO BID Vitals/I & O Vital Sign - Last 24 Hours 11/11/18 11/11/18 11/11/18 11/11/18 11:00 11:21 15:00 16:59 Temp 97.1 97.6 97.1 97.6 Pulse 83 79 Resp 16 16 B/P (MAP) 94/64 (74) 116/62 (80) Pulse Ox 96 97 O2 Delivery Room Air Room Air Room Air Room Air 11/11/18 11/11/18 11/11/18 11/11/18 19:00 20:00 20:48 23:00 Temp 97.8 98.7 97.8 98.7 Pulse 85 83 Resp 18 18 18 B/P (MAP) 164/76 (105) 155/72 (99) Pulse Ox 95 94 O2 Delivery Room Air Room Air Room Air Room Air 11/11/18 11/12/18 11/12/18 11/12/18 23:29 00:00 03:00 05:20 Temp 98.7 98.7 Pulse 85 Resp 20 18 18 18 B/P (MAP) 160/74 (102) Pulse Ox 95 O2 Delivery Room Air Room Air Room Air Room Air 11/12/18 11/12/18 11/12/18 11/12/18 06:20 07:00 08:00 09:32 Temp 98.6 98.6 Pulse 79 79 Resp 18 20 B/P (MAP) 148/66 (93) 148/66 Pulse Ox 100 O2 Delivery Room Air Room Air Room Air O2 Flow Rate 2.0 11/12/18 09:33 O2 Delivery Room Air Intake and Output 11/11/18 11/11/18 11/12/18 14:59 22:59 06:59 Output Total 900 ml 800 ml Balance -900 ml -800 ml DARVIN MCCALLUM MD Nov 12, 2018 10:32
[2018-11-12 11:00] VITALS: BP 142/75
--- NOTE | 2018-11-12 13:35 | NUR ---
SW following for discharge planning. Discussed with RN, pt is from home has 2 daughters that are very involved. SW met with pt and pt's daughter, Ophelia at bedside to discuss SNU recommendations from PT/OT. Pt's daughter reported pt can go home to stay with the other daughter if need be. Pt's daughter, Ophelia is a PT so can work with pt, as well as have home health come in. Ophelia is going to discuss with her sister today and let SW know. SW will continue to follow. RN notified.
[2018-11-12] MEDS: ONDANSETRON PF 4 MG/2 ML VIAL. IV PRN ×2 (13:54→20:06)
[2018-11-12] MEDS: FERROUS SULFATE 325 MG TABLET. PO SCH ×2 (13:55→20:05)
[2018-11-12 15:00] VITALS: BP 155/81
--- NOTE | 2018-11-12 15:36 | NUR ---
Pt has had two episodes of emesis today, both right after eating/drinking less than 100cc total. Pt states that she is NOT passing gas, no distention noted but hypoactive bowel sounds. Pt and dtr both informed to keep NPO until further notice, Dr. Corbin paged to notify of events, awaiting investigation manager back, will continue to monitor.
--- NOTE | 2018-11-12 15:56 | RAD ---
Chest, 2 views, 11/12/2018: HISTORY: Infiltrate Comparison is made to yesterday's portable exam. There are distended bowel loops in the upper abdomen with associated air-fluid levels. There is mild associated elevation of left hemidiaphragm. The heart size is within normal limits. There is tortuosity and calcific plaquing of the thoracic aorta. Prominent reticular/interstitial opacities in the lungs are unchanged and are likely due to fibrosis. No consolidation is seen. There is no evidence of pleural fluid. IMPRESSION: 1. Ongoing prominence of the pulmonary markings, likely due to fibrosis. 2. Dilated gas-filled bowel in the upper abdomen with associated air-fluid level suggesting a generalized ileus versus obstruction. Electronically signed by: Eric Wyatt MD (11/12/2018 3:53 PM) [facility]
[2018-11-12 19:00] VITALS: BP 166/86
[2018-11-12] MEDS ORDERED: PROMETHAZINE 25 MG SUPP.RECT. PR PRN (19:45)
[2018-11-12 23:00] VITALS: BP 175/82
[2018-11-12] MEDS: hydrALAZINE 25 MG TABLET PO PRN (23:07)
[2018-11-13] MEDS: ONDANSETRON PF 4 MG/2 ML VIAL. IV PRN ×2 (02:11→08:03)
[2018-11-13 03:00] VITALS: BP 154/86
[2018-11-13 05:44] LABS: BASO % 0 % (0-3); EOS % 0 % (0-3); HEMATOCRIT 30.5 % (36.0-47.0); HEMOGLOBIN 9.5 g/dL (12.0-15.5); LYMPH # 2.7 x10^3/uL (1.0-4.8); LYMPH % 19 % (24-48); MEAN CORPUSCULAR HEMOGLOBIN 25 pg (25-35); MEAN CORPUSCULAR HGB CONC 31 g/dL (31-37); MEAN CORPUSCULAR VOLUME 79 fL (79-100); MONO % 7 % (0-9); NEUT # 10.1 x10^3uL (1.8-7.7); NEUT % 73 % (31-73); PLATELET COUNT 417 x10^3/uL (140-400); RED BLOOD COUNT 3.85 x10^6/uL (3.50-5.40); WHITE BLOOD COUNT 13.8 x10^3/uL (4.0-11.0)
[2018-11-13 06:01] LABS: ALBUMIN 2.4 g/dL (3.4-5.0); ALBUMIN/GLOBULIN RATIO 0.5 (1.0-1.7); CALCIUM 8.8 mg/dL (8.5-10.1); CREATININE 0.8 mg/dL (0.6-1.0); GFR 82.7; POTASSIUM 4.4 mmol/L (3.5-5.1); TOTAL BILIRUBIN 0.5 mg/dL (0.2-1.0)
[2018-11-13 07:00] VITALS: BP 149/69
[2018-11-13] MEDS: INSULIN LISPRO 300 UNITS/3 ML INSULN.PEN. SQ SCH ×3 (07:31→17:00)
[2018-11-13] MEDS: amLODIPine BESYLATE 5 MG TABLET PO SCH (08:02)
[2018-11-13] MEDS: ENOXAPARIN 40 MG/0.4 ML SYRINGE. SQ SCH (08:03)
[2018-11-13] MEDS: POTASSIUM CL 20MEQ-0.45% NACL 1,000 ML IV SCH (08:09)
--- NOTE | 2018-11-13 08:09 | NUR ---
SW following, pt's family are wanting to take pt home with home health upon discharge. RN notified.
[2018-11-13] MEDS: FERROUS SULFATE 325 MG TABLET. PO SCH ×2 (09:00→21:00)
[2018-11-13] MEDS: HYDROcodone/APAP 5/325MG 1 TAB TABLET PO PRN ×2 (09:55→14:56)
[2018-11-13] MEDS: hydrALAZINE 25 MG TABLET PO PRN (10:44)
[2018-11-13 11:00] VITALS: BP 120/80
--- NOTE | 2018-11-13 12:04 | CONS ---
DATE OF CONSULTATION: ATTENDING PHYSICIAN: Dr. Corbin. REASON FOR CONSULTATION: Abnormal chest x-ray. HISTORY OF PRESENT ILLNESS: The patient is an 82-year-old female with history of diabetes type 2 and hypertension. She was recently found to have a colonic mass at the hepatic flexure. The patient's pathology was positive for adenocarcinoma. The patient also was noted to have positive DVT involving the left lower extremity and underwent placement of IVC filter. She was brought into the hospital for elective resection of her colon. She underwent laparoscopic-assisted right colon resection under general anesthesia. I have been asked to see her for further evaluation of her abnormal chest x-ray. I have reviewed the patient's chest x-ray and it shows mildly prominent interstitial markings on yesterday's film with markedly elevated gaseous distention on the left side suggesting ileus. I have also looked at her previous CAT scan of the chest, which was performed on 12/14/2017 and the findings showed that she has some peripheral fibrotic changes in the upper and mid lung zone and also increased fibrotic changes at the bases. These findings are highly suspicious for idiopathic pulmonary fibrosis. Talking to the daughter, she is not in any discomfort. She does not have a chronic cough, does not have chronic shortness of breath, she is not on oxygen. No headaches. At this time, no nausea. No focal weakness, no skin rash. PAST MEDICAL HISTORY: Significant for recently diagnosed adenocarcinoma of the colon. History of gastritis, history of DVT involving the lower extremities, history of IVC filter. History of type 2 diabetes, hypertension. PAST SURGICAL HISTORY: Cataract extraction and D and C. SOCIAL HISTORY: She quit 20 years ago and smoked for less than 10 years. REVIEW OF SYSTEMS: Twelve-point system obtained. Pertinent positives discussed in my history of present illness, otherwise noncontributory. All systems that were negative were reviewed as well. FAMILY HISTORY: Positive for diabetes. PHYSICAL EXAMINATION: VITAL SIGNS: Reviewed. Stable. Pulse ox 98% room air. NECK: Supple. LUNGS: With crackles over 1/3 at the bases. CARDIOVASCULAR: Regular rate and rhythm. ABDOMEN: Soft, mildly tender. EXTREMITIES: With no pitting edema. LABORATORY DATA: Reviewed. White cell count at 13.8, hemoglobin 9.5 and platelets are 417. BUN is 6 and a creatinine of 0.8. IMPRESSION: 1. Abnormal chest x-ray and CT chest from last year, highly suspicious for early idiopathic pulmonary fibrosis. She has crackles at 1/3 at the bases and the CT chest findings with peripheral fibrotic changes and also increased fibrotic changes at the bases are highly consistent with idiopathic pulmonary fibrosis. 2. Recently diagnosed adenocarcinoma of the colon, status post laparoscopic right colon resection. 3. History of deep venous thrombosis, left lower extremity, status post inferior vena cava filter, not an optimum candidate for long-term anticoagulation. 4. No significant tobacco history. RECOMMENDATIONS: 1. At this point keeping in view of her advanced age, I do not see a need for any biopsy. Conservative follow up on her fibrosis would be reasonable. I would recommend repeating a CAT scan as an outpatient sometimes this year to make a year comparison of her. 2. We will do a 6-minute walk test at the time of discharge. 3. Follow General Surgery recommendations. 4. DVT prophylaxis with Lovenox. She already has an IVC filter. 5. PRN bronchodilators. 6. Discussed with both the daughters and we will follow along with you. CHRISTOPHER GROVES MD DR: HEDY/ghulam JOB#: [id number] / [id number]
--- NOTE | 2018-11-13 12:14 | PDOC ---
SURGICAL PROGRESS NOTE Subjective up in chair no emesis today minimal flatus overall feels better Vital Signs Vital Signs Date Time Temp Pulse Resp B/P (MAP) Pulse Ox O2 Delivery O2 Flow Rate FiO2 11/13/18 11:23 98 Room Air 11/13/18 11:00 97.9 66 18 120/80 (93) 97.9 11/12/18 08:00 2.0 I&O Intake and Output 11/13/18 06:59 Output Total 400 ml Balance -400 ml Emesis 250 ml Oral Regurgitation 150 ml # Voids 5 General: Alert, Oriented X3, Cooperative, No acute distress Abdomen: Soft Labs Laboratory Tests Test 11/11/18 16:56 11/11/18 18:15 11/11/18 21:00 11/12/18 03:05 Glucose (Fingerstick) 130 mg/dL (70-99) 119 mg/dL (70-99) Urine Collection Type Unknown Urine Color Yellow Urine Clarity Clear Urine pH 5.0 Urine Specific [place] 1.015 Urine Protein Negative mg/dL (NEG-TRACE) Urine Glucose (UA) Negative mg/dL (NEG) Urine Ketones (Stick) Negative mg/dL (NEG) Urine Blood Large (NEG) Urine Nitrite Negative (NEG) Urine Bilirubin Negative (NEG) Urine Urobilinogen Dipstick 0.2 mg/dL (0.2 mg/dL) Urine Leukocyte Esterase Moderate (NEG) Urine RBC 11-20 /HPF (0-2) Urine WBC 1-4 /HPF (0-4) Urine Squamous Epithelial Cells Few /LPF Urine Bacteria Few /HPF (0-FEW) Urine Hyaline Casts Few /HPF Urine Mucus Marked /LPF White Blood Count 11.1 x10^3/uL (4.0-11.0) Red Blood Count 3.21 x10^6/uL (3.50-5.40) Hemoglobin 8.0 g/dL (12.0-15.5) Hematocrit 25.6 % (36.0-47.0) Mean Corpuscular Volume 80 fL (79-100) Mean Corpuscular Hemoglobin 25 pg (25-35) Mean Corpuscular Hemoglobin Concent 31 g/dL (31-37) Red Cell Distribution Width 20.7 % (11.5-14.5) Platelet Count 325 x10^3/uL (140-400) Neutrophils (%) (Auto) 68 % (31-73) Lymphocytes (%) (Auto) 22 % (24-48) Monocytes (%) (Auto) 9 % (0-9) Eosinophils (%) (Auto) 1 % (0-3) Basophils (%) (Auto) 1 % (0-3) Neutrophils # (Auto) 7.6 x10^3uL (1.8-7.7) Lymphocytes # (Auto) 2.4 x10^3/uL (1.0-4.8) Monocytes # (Auto) 0.9 x10^3/uL (0.0-1.1) Eosinophils # (Auto) 0.1 x10^3/uL (0.0-0.7) Basophils # (Auto) 0.1 x10^3/uL (0.0-0.2) Sodium Level 137 mmol/L (136-145) Potassium Level 4.2 mmol/L (3.5-5.1) Chloride Level 104 mmol/L (98-107) Carbon Dioxide Level 24 mmol/L (21-32) Anion Gap 9 (6-14) Blood Urea Nitrogen 4 mg/dL (7-20) Creatinine 0.9 mg/dL (0.6-1.0) Estimated GFR (Cockcroft-Gault) 72.2 Glucose Level 124 mg/dL (70-99) Calcium Level 9.0 mg/dL (8.5-10.1) Test 11/12/18 07:26 11/12/18 11:00 11/12/18 16:53 11/12/18 20:30 Glucose (Fingerstick) 119 mg/dL (70-99) 157 mg/dL (70-99) 161 mg/dL (70-99) 149 mg/dL (70-99) Test 11/13/18 05:00 11/13/18 07:13 11/13/18 11:16 White Blood Count 13.8 x10^3/uL (4.0-11.0) Red Blood Count 3.85 x10^6/uL (3.50-5.40) Hemoglobin 9.5 g/dL (12.0-15.5) Hematocrit 30.5 % (36.0-47.0) Mean Corpuscular Volume 79 fL (79-100) Mean Corpuscular Hemoglobin 25 pg (25-35) Mean Corpuscular Hemoglobin Concent 31 g/dL (31-37) Red Cell Distribution Width 20.0 % (11.5-14.5) Platelet Count 417 x10^3/uL (140-400) Neutrophils (%) (Auto) 73 % (31-73) Lymphocytes (%) (Auto) 19 % (24-48) Monocytes (%) (Auto) 7 % (0-9) Eosinophils (%) (Auto) 0 % (0-3) Basophils (%) (Auto) 0 % (0-3) Neutrophils # (Auto) 10.1 x10^3uL (1.8-7.7) Lymphocytes # (Auto) 2.7 x10^3/uL (1.0-4.8) Monocytes # (Auto) 1.0 x10^3/uL (0.0-1.1) Eosinophils # (Auto) 0.0 x10^3/uL (0.0-0.7) Basophils # (Auto) 0.0 x10^3/uL (0.0-0.2) Sodium Level 137 mmol/L (136-145) Potassium Level 4.4 mmol/L (3.5-5.1) Chloride Level 102 mmol/L (98-107) Carbon Dioxide Level 22 mmol/L (21-32) Anion Gap 13 (6-14) Blood Urea Nitrogen 6 mg/dL (7-20) Creatinine 0.8 mg/dL (0.6-1.0) Estimated GFR (Cockcroft-Gault) 82.7 BUN/Creatinine Ratio 8 (6-20) Glucose Level 135 mg/dL (70-99) Calcium Level 8.8 mg/dL (8.5-10.1) Total Bilirubin 0.5 mg/dL (0.2-1.0) Aspartate Amino Transf (AST/SGOT) 15 U/L (15-37) Alanine Aminotransferase (ALT/SGPT) 9 U/L (14-59) Alkaline Phosphatase 74 U/L (46-116) SJ-Kyl-M-Type Natriuretic Peptide 228 pg/mL (0-449) Total Protein 7.0 g/dL (6.4-8.2) Albumin 2.4 g/dL (3.4-5.0) Albumin/Globulin Ratio 0.5 (1.0-1.7) Glucose (Fingerstick) 125 mg/dL (70-99) 153 mg/dL (70-99) Laboratory Tests Test 11/12/18 16:53 11/12/18 20:30 11/13/18 05:00 11/13/18 07:13 Glucose (Fingerstick) 161 mg/dL (70-99) 149 mg/dL (70-99) 125 mg/dL (70-99) White Blood Count 13.8 x10^3/uL (4.0-11.0) Red Blood Count 3.85 x10^6/uL (3.50-5.40) Hemoglobin 9.5 g/dL (12.0-15.5) Hematocrit 30.5 % (36.0-47.0) Mean Corpuscular Volume 79 fL (79-100) Mean Corpuscular Hemoglobin 25 pg (25-35) Mean Corpuscular Hemoglobin Concent 31 g/dL (31-37) Red Cell Distribution Width 20.0 % (11.5-14.5) Platelet Count 417 x10^3/uL (140-400) Neutrophils (%) (Auto) 73 % (31-73) Lymphocytes (%) (Auto) 19 % (24-48) Monocytes (%) (Auto) 7 % (0-9) Eosinophils (%) (Auto) 0 % (0-3) Basophils (%) (Auto) 0 % (0-3) Neutrophils # (Auto) 10.1 x10^3uL (1.8-7.7) Lymphocytes # (Auto) 2.7 x10^3/uL (1.0-4.8) Monocytes # (Auto) 1.0 x10^3/uL (0.0-1.1) Eosinophils # (Auto) 0.0 x10^3/uL (0.0-0.7) Basophils # (Auto) 0.0 x10^3/uL (0.0-0.2) Sodium Level 137 mmol/L (136-145) Potassium Level 4.4 mmol/L (3.5-5.1) Chloride Level 102 mmol/L (98-107) Carbon Dioxide Level 22 mmol/L (21-32) Anion Gap 13 (6-14) Blood Urea Nitrogen 6 mg/dL (7-20) Creatinine 0.8 mg/dL (0.6-1.0) Estimated GFR (Cockcroft-Gault) 82.7 BUN/Creatinine Ratio 8 (6-20) Glucose Level 135 mg/dL (70-99) Calcium Level 8.8 mg/dL (8.5-10.1) Total Bilirubin 0.5 mg/dL (0.2-1.0) Aspartate Amino Transf (AST/SGOT) 15 U/L (15-37) Alanine Aminotransferase (ALT/SGPT) 9 U/L (14-59) Alkaline Phosphatase 74 U/L (46-116) RO-Ikg-P-Type Natriuretic Peptide 228 pg/mL (0-449) Total Protein 7.0 g/dL (6.4-8.2) Albumin 2.4 g/dL (3.4-5.0) Albumin/Globulin Ratio 0.5 (1.0-1.7) Test 11/13/18 11:16 Glucose (Fingerstick) 153 mg/dL (70-99) Assessment/Plan await improved bowel function YUNIOR ENGLISH APRN Nov 13, 2018 12:14
--- NOTE | 2018-11-13 12:41 | PDOC ---
PROGRESS NOTES Subjective Subjective feels better., no vomiting. passes flatus occasionally. lab reviewed. discussed with CLERICAL PROOFREADER surgeon and family Objective Objective Vital Signs Date Time Temp Pulse Resp B/P (MAP) Pulse Ox O2 Delivery O2 Flow Rate FiO2 11/13/18 11:23 98 Room Air 11/13/18 11:00 97.9 66 18 120/80 (93) 97.9 11/12/18 08:00 2.0 Intake and Output 11/13/18 07:00 Output Total 400 ml Balance -400 ml Emesis 250 ml Oral Regurgitation 150 ml # Voids 5 Physical Exam Abdomen: Soft Heart: Regular rate, Normal S1, Normal S2 Extremities: No edema General: Alert HEENT: Atraumatic Lungs: Clear to auscultation Neuro: Normal speech Psych/Mental Status: Mental status NL Skin: No rashes Assessment Assessment laparoscopic assisted right colon resection for hepatic flexure adenocarcinoma of colon acute blood loss anemia leukocytosis diabetes mellitus type 2 hypertension history of recent IVC filter for LLE DVT ileus better Plan Plan of Care start clear liquids PT and OT lab tomorrow Comment Review of Relevant I have reviewed the following items nuria (where applicable) has been applied. Labs Laboratory Tests Test 11/11/18 16:56 11/11/18 18:15 11/11/18 21:00 11/12/18 03:05 Glucose (Fingerstick) 130 mg/dL (70-99) 119 mg/dL (70-99) Urine Collection Type Unknown Urine Color Yellow Urine Clarity Clear Urine pH 5.0 Urine Specific [place] 1.015 Urine Protein Negative mg/dL (NEG-TRACE) Urine Glucose (UA) Negative mg/dL (NEG) Urine Ketones (Stick) Negative mg/dL (NEG) Urine Blood Large (NEG) Urine Nitrite Negative (NEG) Urine Bilirubin Negative (NEG) Urine Urobilinogen Dipstick 0.2 mg/dL (0.2 mg/dL) Urine Leukocyte Esterase Moderate (NEG) Urine RBC 11-20 /HPF (0-2) Urine WBC 1-4 /HPF (0-4) Urine Squamous Epithelial Cells Few /LPF Urine Bacteria Few /HPF (0-FEW) Urine Hyaline Casts Few /HPF Urine Mucus Marked /LPF White Blood Count 11.1 x10^3/uL (4.0-11.0) Red Blood Count 3.21 x10^6/uL (3.50-5.40) Hemoglobin 8.0 g/dL (12.0-15.5) Hematocrit 25.6 % (36.0-47.0) Mean Corpuscular Volume 80 fL (79-100) Mean Corpuscular Hemoglobin 25 pg (25-35) Mean Corpuscular Hemoglobin Concent 31 g/dL (31-37) Red Cell Distribution Width 20.7 % (11.5-14.5) Platelet Count 325 x10^3/uL (140-400) Neutrophils (%) (Auto) 68 % (31-73) Lymphocytes (%) (Auto) 22 % (24-48) Monocytes (%) (Auto) 9 % (0-9) Eosinophils (%) (Auto) 1 % (0-3) Basophils (%) (Auto) 1 % (0-3) Neutrophils # (Auto) 7.6 x10^3uL (1.8-7.7) Lymphocytes # (Auto) 2.4 x10^3/uL (1.0-4.8) Monocytes # (Auto) 0.9 x10^3/uL (0.0-1.1) Eosinophils # (Auto) 0.1 x10^3/uL (0.0-0.7) Basophils # (Auto) 0.1 x10^3/uL (0.0-0.2) Sodium Level 137 mmol/L (136-145) Potassium Level 4.2 mmol/L (3.5-5.1) Chloride Level 104 mmol/L (98-107) Carbon Dioxide Level 24 mmol/L (21-32) Anion Gap 9 (6-14) Blood Urea Nitrogen 4 mg/dL (7-20) Creatinine 0.9 mg/dL (0.6-1.0) Estimated GFR (Cockcroft-Gault) 72.2 Glucose Level 124 mg/dL (70-99) Calcium Level 9.0 mg/dL (8.5-10.1) Test 11/12/18 07:26 11/12/18 11:00 11/12/18 16:53 11/12/18 20:30 Glucose (Fingerstick) 119 mg/dL (70-99) 157 mg/dL (70-99) 161 mg/dL (70-99) 149 mg/dL (70-99) Test 11/13/18 05:00 11/13/18 07:13 11/13/18 11:16 White Blood Count 13.8 x10^3/uL (4.0-11.0) Red Blood Count 3.85 x10^6/uL (3.50-5.40) Hemoglobin 9.5 g/dL (12.0-15.5) Hematocrit 30.5 % (36.0-47.0) Mean Corpuscular Volume 79 fL (79-100) Mean Corpuscular Hemoglobin 25 pg (25-35) Mean Corpuscular Hemoglobin Concent 31 g/dL (31-37) Red Cell Distribution Width 20.0 % (11.5-14.5) Platelet Count 417 x10^3/uL (140-400) Neutrophils (%) (Auto) 73 % (31-73) Lymphocytes (%) (Auto) 19 % (24-48) Monocytes (%) (Auto) 7 % (0-9) Eosinophils (%) (Auto) 0 % (0-3) Basophils (%) (Auto) 0 % (0-3) Neutrophils # (Auto) 10.1 x10^3uL (1.8-7.7) Lymphocytes # (Auto) 2.7 x10^3/uL (1.0-4.8) Monocytes # (Auto) 1.0 x10^3/uL (0.0-1.1) Eosinophils # (Auto) 0.0 x10^3/uL (0.0-0.7) Basophils # (Auto) 0.0 x10^3/uL (0.0-0.2) Sodium Level 137 mmol/L (136-145) Potassium Level 4.4 mmol/L (3.5-5.1) Chloride Level 102 mmol/L (98-107) Carbon Dioxide Level 22 mmol/L (21-32) Anion Gap 13 (6-14) Blood Urea Nitrogen 6 mg/dL (7-20) Creatinine 0.8 mg/dL (0.6-1.0) Estimated GFR (Cockcroft-Gault) 82.7 BUN/Creatinine Ratio 8 (6-20) Glucose Level 135 mg/dL (70-99) Calcium Level 8.8 mg/dL (8.5-10.1) Total Bilirubin 0.5 mg/dL (0.2-1.0) Aspartate Amino Transf (AST/SGOT) 15 U/L (15-37) Alanine Aminotransferase (ALT/SGPT) 9 U/L (14-59) Alkaline Phosphatase 74 U/L (46-116) DL-Zdx-R-Type Natriuretic Peptide 228 pg/mL (0-449) Total Protein 7.0 g/dL (6.4-8.2) Albumin 2.4 g/dL (3.4-5.0) Albumin/Globulin Ratio 0.5 (1.0-1.7) Glucose (Fingerstick) 125 mg/dL (70-99) 153 mg/dL (70-99) Laboratory Tests Test 11/12/18 16:53 11/12/18 20:30 11/13/18 05:00 11/13/18 07:13 Glucose (Fingerstick) 161 mg/dL (70-99) 149 mg/dL (70-99) 125 mg/dL (70-99) White Blood Count 13.8 x10^3/uL (4.0-11.0) Red Blood Count 3.85 x10^6/uL (3.50-5.40) Hemoglobin 9.5 g/dL (12.0-15.5) Hematocrit 30.5 % (36.0-47.0) Mean Corpuscular Volume 79 fL (79-100) Mean Corpuscular Hemoglobin 25 pg (25-35) Mean Corpuscular Hemoglobin Concent 31 g/dL (31-37) Red Cell Distribution Width 20.0 % (11.5-14.5) Platelet Count 417 x10^3/uL (140-400) Neutrophils (%) (Auto) 73 % (31-73) Lymphocytes (%) (Auto) 19 % (24-48) Monocytes (%) (Auto) 7 % (0-9) Eosinophils (%) (Auto) 0 % (0-3) Basophils (%) (Auto) 0 % (0-3) Neutrophils # (Auto) 10.1 x10^3uL (1.8-7.7) Lymphocytes # (Auto) 2.7 x10^3/uL (1.0-4.8) Monocytes # (Auto) 1.0 x10^3/uL (0.0-1.1) Eosinophils # (Auto) 0.0 x10^3/uL (0.0-0.7) Basophils # (Auto) 0.0 x10^3/uL (0.0-0.2) Sodium Level 137 mmol/L (136-145) Potassium Level 4.4 mmol/L (3.5-5.1) Chloride Level 102 mmol/L (98-107) Carbon Dioxide Level 22 mmol/L (21-32) Anion Gap 13 (6-14) Blood Urea Nitrogen 6 mg/dL (7-20) Creatinine 0.8 mg/dL (0.6-1.0) Estimated GFR (Cockcroft-Gault) 82.7 BUN/Creatinine Ratio 8 (6-20) Glucose Level 135 mg/dL (70-99) Calcium Level 8.8 mg/dL (8.5-10.1) Total Bilirubin 0.5 mg/dL (0.2-1.0) Aspartate Amino Transf (AST/SGOT) 15 U/L (15-37) Alanine Aminotransferase (ALT/SGPT) 9 U/L (14-59) Alkaline Phosphatase 74 U/L (46-116) WC-Saa-L-Type Natriuretic Peptide 228 pg/mL (0-449) Total Protein 7.0 g/dL (6.4-8.2) Albumin 2.4 g/dL (3.4-5.0) Albumin/Globulin Ratio 0.5 (1.0-1.7) Test 11/13/18 11:16 Glucose (Fingerstick) 153 mg/dL (70-99) Medications Current Medications Ondansetron HCl (Zofran) 4 mg PRN Q6HRS PRN IV NAUSEA/VOMITING Last administered on 11/10/18at 13:39; Start 11/10/18 at 07:00; Stop 11/11/18 at 06:59; Status DC Fentanyl Citrate (Fentanyl 2ml Vial) 25 mcg PRN Q5MIN PRN IV MILD PAIN; Start 11/10/18 at 07:00; Stop 11/11/18 at 06:59; Status DC Fentanyl Citrate (Fentanyl 2ml Vial) 50 mcg PRN Q5MIN PRN IV MODERATE TO SEVERE PAIN Last administered on 11/10/18at 13:42; Start 11/10/18 at 07:00; Stop at 06:59; Status DC Morphine Sulfate (Morphine Sulfate) 1 mg PRN Q10MIN PRN IV SEVERE PAIN Last administered on 11/10/18at 14:32; Start 11/10/18 at 07:00; Stop 11/11/18 at 06:59; Status DC Ringer's Solution 1,000 ml @ 30 mls/hr Q24H IV Last administered on 11/10/18at 14:31; Start 11/10/18 at 07:00; Stop 11/10/18 at 18:59; Status DC Lidocaine HCl (Xylocaine-Mpf 1% 2ml Vial) 2 ml PRN 1X PRN ID PRIOR TO IV START ; Start 11/10/18 at 07:00; Stop 11/11/18 at 06:59; Status DC Hydromorphone HCl (Dilaudid) 0.5 mg PRN Q10MIN PRN IV SEV PAIN, Second choice; Start 11/10/18 at 07:00; Stop 11/11/18 at 06:59; Status DC Prochlorperazine Edisylate (Compazine) 5 mg PACU PRN PRN IV NAUSEA, MRX1 Last administered on 11/10/18at 13:22; Start 11/10/18 at 07:00; Stop 11/11/18 at 06:59; Status DC Cefazolin Sodium/ Dextrose 50 ml @ 100 mls/hr 1X PREOP PRN IV PRIOR TO PROCEDURE; Start 11/10/18 at 06:00; Stop 11/10/18 at 18:00; Status DC Metronidazole 100 ml @ 100 mls/hr 1X PREOP PRN IV PRIOR TO PROCEDURE; Start at 06:00; Stop 11/10/18 at 18:00; Status DC Bupivacaine HCl/ Epinephrine Bitart (Sensorcain-Mpf Epi 0.5%-[id number]) 30 ml STK -MED ONCE .ROUTE Last administered on 11/10/18at 10:00; Start 11/10/18 at 08:21; Stop 11/10/18 at 09:21; Status DC Rocuronium [place] (Zemuron) 50 mg STK-MED ONCE .ROUTE ; Start 11/10/18 at 09:31 ; Stop 11/10/18 at 09:32; Status DC Desflurane (Suprane) 60 ml STK-MED ONCE IH ; Start 11/10/18 at 10:08; Stop at 10:09; Status DC Propofol 20 ml @ As Directed STK-MED ONCE IV ; Start 11/10/18 at 10:08; Stop 11/10 at 10:09; Status DC Lidocaine HCl (Lidocaine Pf 2% Vial) 5 ml STK-MED ONCE .ROUTE ; Start 11/10/18 at 10:08; Stop 11/10/18 at 10:09; Status DC Dexamethasone Sodium Phosphate (Decadron) 20 mg STK-MED ONCE .ROUTE ; Start 11/10 at 10:09; Stop 11/10/18 at 10:10; Status DC Ondansetron HCl (Zofran) 4 mg STK-MED ONCE .ROUTE ; Start 11/10/18 at 10:09; Stop 11/10/18 at 10:10; Status DC Neostigmine Methylsulfate (Neostigmine Methylsulfate) 5 mg STK-MED ONCE .ROUTE ; Start 11/10/18 at 10:09; Stop 11/10/18 at 10:10; Status DC Glycopyrrolate (Robinul) 1 mg STK-MED ONCE .ROUTE ; Start 11/10/18 at 10:09; Stop 11/10/18 at 10:10; Status DC Fentanyl Citrate (Fentanyl 2ml Vial) 100 mcg STK-MED ONCE .ROUTE ; Start at 10:10; Stop 11/10/18 at 10:11; Status DC Phenylephrine HCl (PHENYLEPHRINE in 0.9% NACL PF) 1 mg STK-MED ONCE IV ; Start 11/10/18 at 10:23; Stop 11/10/18 at 10:24; Status DC Albuterol Sulfate (Ventolin Hfa) 1 puff 1X ONCE INH ; Start 11/10/18 at 10:45; Stop 11/10/18 at 10:46; Status DC Rocuronium [place] (Zemuron) 50 mg STK-MED ONCE .ROUTE ; Start 11/10/18 at 10:36 ; Stop 11/10/18 at 10:37; Status DC Sevoflurane (Ultane) 90 ml STK-MED ONCE IH ; Start 11/10/18 at 11:52; Stop at 11:53; Status DC Amlodipine Besylate (Norvasc) 5 mg DAILY PO Last administered on 11/12/18at 09:32 ; Start 11/11/18 at 09:00; Stop 11/12/18 at 22:56; Status DC Metformin HCl (Glucophage) 500 mg BIDWMEALS PO Last administered on 11/12/18at 09 :32; Start 11/10/18 at 17:00; Stop 11/12/18 at 16:01; Status DC Pantoprazole Sodium (Protonix) 40 mg DAILYAC PO ; Start 11/11/18 at 07:30; Stop 11/11/18 at 07:30; Status DC Al Hydroxide/Mg Hydroxide (Mylanta Plus Xs) 30 ml PRN Q3HRS PRN PO HEARTBURN / GAS; Start 11/10/18 at 12:00 Diphenhydramine HCl (Benadryl) 25 mg PRN Q6HRS PRN PO ITCHING; Start 11/10/18 at 12:00 Enoxaparin Sodium (Lovenox 40mg Syringe) 40 mg Q24H SQ Last administered on 11/13at 08:03; Start 11/11/18 at 09:00 Sodium Chloride (Normal Saline Flush) 3 ml QSHIFT PRN IV AFTER MEDS AND BLOOD DRAWS; Start 11/10/18 at 12:00 Potassium Chloride/Sodium Chloride 1,000 ml @ 60 mls/hr [id number] IV Last administered on 11/12/18at 03:59; Start 11/10/18 at 15:00; Stop 11/12/18 at 14:59; Status DC Hydromorphone HCl (Dilaudid) 0.5 mg PRN Q4HRS PRN IV PAIN, SEE COMMENTS Last administered on 11/10/18at 20:12; Start 11/10/18 at 12:00; Stop 11/11/18 at 10:31; Status DC Ondansetron HCl (Zofran) 4 mg PRN Q6HRS PRN IV NAUESA, 1ST CHOICE Last administered on 11/13/18at 08:03; Start 11/10/18 at 12:00 Insulin Human Lispro (HumaLOG) 0-6 UNITS 300-39... TIDWMEALS SQ ; Start 11/10/18 at 17:00; Stop 11/11/18 at 10:35; Status DC Pantoprazole Sodium (PROTONIX VIAL for IV PUSH) 40 mg DAILYAC IVP Last administered on 11/12/18at 05:20; Start 11/11/18 at 07:30; Stop 11/12/18 at 10:30; Status DC Throat Lozenges (Chloraseptic) 1 spray PRN Q2HR PRN PO SORE THROAT, 2ND CHOICE ; Start 11/10/18 at 18:30 Throat Lozenges (Cepacol Sore Throat Lozenge) 1 taiwo PRN Q2HRS PRN PO SORE THROAT, 1ST CHOICE Last administered on 11/13/18at 11:46; Start 11/10/18 at 18:30 Hydromorphone HCl (Dilaudid) 0.5 mg PRN Q3HRS PRN IV MODERATE PAIN; Start at 22:30; Stop 11/11/18 at 12:22; Status DC Hydromorphone HCl (Dilaudid) 1 mg PRN Q3HRS PRN IV SEVERE PAIN Last administered on 11/11/18at 11:21; Start 11/10/18 at 22:30; Stop 11/11/18 at 12:22; Status DC Insulin Human Lispro (HumaLOG) 0-6 UNITS BG 300-39... TIDWMEALS SQ ; Start at 12:00 Metronidazole (FLAGYL 500Mmg PREMIX) 500 mg STK-MED ONCE IV ; Start 11/10/18 at 09:00; Stop 11/11/18 at 11:24; Status DC Acetaminophen/ Hydrocodone Bitart (Lortab 5/325) 1 tab PRN Q4HRS PRN PO MODERATE TO SEVERE PAIN Last administered on 11/13/18at 09:55; Start 11/11/18 at 12 :30 Morphine Sulfate (Morphine Sulfate) 1 mg PRN Q1HR PRN IV PAIN Last administered on 11/11/18at 23:29; Start 11/11/18 at 20:00; Stop 11/12/18 at 10:30; Status DC Ferrous Sulfate (Feosol) 325 mg BID PO ; Start 11/12/18 at 12:00 Acetaminophen (Tylenol) 650 mg PRN Q6HRS PRN PO MILD PAIN / TEMP; Start at 10:30 Potassium Chloride/Sodium Chloride 1,000 ml @ 60 mls/hr [id number] IV Last administered on 11/13/18 08:09; Start 11/12/18 at 17:00 Promethazine HCl (Phenergan Supp) 25 mg PRN Q6HRS PRN ID NAUSEA/VOMITING Last administered on 11/12/18 21:38; Start 11/12/18 at 19:45 Amlodipine Besylate (Norvasc) 10 mg DAILY PO Last administered on 11/13/18at 08: 02; Start 11/13/18 at 09:00 Hydralazine HCl (Apresoline) 25 mg PRN Q6HRS PRN PO HYPERTENSION Last administered on 11/13/18 10:44; Start 11/12/18 at 23:00 Active Scripts Active Reported Omeprazole 20 Mg Capsule.dr 1 Cap PO DAILY Ferrous Sulfate 325 Mg Tablet 1 Tab PO BID Amlodipine Besylate 5 Mg Tablet 5 Mg PO DAILY Metformin Hcl 500 Mg Tablet 500 Mg PO BID Vitals/I & O Vital Sign - Last 24 Hours 11/12/18 11/12/18 11/12/18 11/12/18 15:00 19:00 19:45 23:00 Temp 98.4 97.3 98.6 98.4 97.3 98.6 Pulse 95 96 101 Resp 18 18 18 B/P (MAP) 155/81 (105) 166/86 (112) 175/82 (113) Pulse Ox 98 98 98 O2 Delivery Room Air Room Air Room Air Room Air 11/12/18 11/13/18 11/13/18 11/13/18 23:07 03:00 07:00 08:00 Temp 98.0 97.5 98.0 97.5 Pulse 101 107 92 Resp 18 18 B/P (MAP) 175/82 154/86 (108) 149/69 (95) Pulse Ox 94 98 O2 Delivery Room Air Room Air Room Air 11/13/18 11/13/18 11/13/18 11/13/18 08:02 09:55 10:44 11:00 Temp 97.9 97.9 Pulse 100 66 66 Resp 18 B/P (MAP) 149/69 164/83 120/80 (93) Pulse Ox 98 99 O2 Delivery Room Air Room Air 11/13/18 11:23 Pulse Ox 98 O2 Delivery Room Air Intake and Output 11/12/18 11/12/18 11/13/18 15:00 23:00 07:00 Output Total 50 ml 150 ml 200 ml Balance -50 ml -150 ml -200 ml DARVIN MCCALLUM MD Nov 13, 2018 12:41
--- NOTE | 2018-11-13 14:07 | PATHOLOGY ---
[facility] Accession Number: [id number] . 01 Material submitted: . RIGHT COLON . 02 Diagnosis: Distal ileum, cecum and attached appendix, and ascending colon with attached mesocolon, right colon resection: - INVASIVE COLORECTAL ADENOCARCINOMA WITH MUCINOUS FEATURES, MODERATELY TO FOCALLY POORLY DIFFERENTIATED, FORMING A PARTIALLY CIRCUMFRENTIAL ULCERATED TUMOR MASS OF THE MID ASCENDING COLON MEASURING 8.5 CM IN CIRCUMFERENCE AND 4.2 CM IN LENGTH, WITH TUMOR INVASION THROUGH MUSCULARIS PROPRIA INTO SUBSEROSA AND MESOCOLIC SOFT TISSUES. 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 - Twenty-two mesocolic lymph nodes showing reactive change - negative for tumor (0/22). - Proximal (distal ileum) margin of resection negative for tumor. - Distal (ascending colon) margin of resection negative for tumor. - Mesocolic margin of resection negative for tumor. - Sessile tubular adenoma and sessile serrated adenoma of cecum. - Sessile serrated polyp/adenoma of distal ascending colon. - Appendix showing no diagnostic abnormalities. - Adiposity of ileocecal valve. - Hyperplastic mucosal-associated lymphoid aggregates of distal ileum and ileocecal valve. . Surgical Pathology Cancer Case Summary . Protocol posting date: January 2017 . COLON AND RECTUM: Resection, Including Transanal Disk Excision of Rectal Neoplasms . Procedure ___ Right hemicolectomy . Tumor Site ___ Right (ascending) colon . Tumor Size Greatest dimension: 8.5 cm . Macroscopic Tumor Perforation ___ Not identified . Histologic Type ___ Adenocarcinoma with mucinous features . Histologic Grade ___ Other: Moderately to focally poorly differentiated . Tumor Extension ___ Tumor invades through the muscularis propria into pericolorectal tissue . Margins ___ All margins are uninvolved by invasive carcinoma, high-grade dysplasia, intramucosal adenocarcinoma, and adenoma Margins examined: Proximal (distal ileum), distal (ascending colon), and mesocolic margins + Distance of invasive carcinoma from closest margin: 7.0 cm + Specify closest margin: Distal margin . Treatment Effect ___ No known presurgical therapy . Lymphovascular Invasion ___ Not identified . Perineural Invasion ___ Not identified . + Type of Polyp in Which Invasive Carcinoma Arose + ___ Tubular adenoma . Tumor Deposits ___ Not identified . Regional Lymph Nodes Number of Lymph Nodes Involved: 0 Number of Lymph Nodes Examined: 22 . Pathologic Stage Classification (pTNM, AJCC 8th Edition) . TNM Descriptors ___ m (multiple primary tumors) . Primary Tumor (pT) ___ pT3:Tumor invades through the muscularis propria into pericolorectal tissues . Regional Lymph Nodes (pN) ___ pN0:No regional lymph node metastasis . + Additional Pathologic Findings + ___ Other (specify): Separate invasive moderately differentiated colorectal adenocarcinoma with mucinous features, forming a circumferential ulcerated second primary tumor mass of the proximal ascending colon measuring 8.0 cm in greatest dimension, with tumor invasion through muscularis propria into subserosa and mesocolic soft tissues. . (JPM:[facility] 11/12/2018) [facility]/11/13/2018 . 02 Electronically signed: . Bola Tijerina MD, Pathologist NPI- [id number] . 01 Gross description: . Received fresh for intraoperative gross consultation, labeled, Lenore Romero - Right colon, is a segment of distal ileum, cecum, and ascending colon with attached mesocolon. The segment is stapled closed at both ends. The distal ileum measures 5.0 cm in length. The cecum and ascending colon measure 19.0 cm in length. The attached mesocolon focally measures up to 9.0 cm in depth. Attached to the base of the cecum is a curled vermiform appendix measuring 10.0 cm in length and 0.5 cm in diameter. The serosa is pink-boothe and glistening. The serosa of the distal ileum and ascending colon is pink-red and focally erythematous. There is a puckered area of the serosa and adjacent mesocolon of the mid ascending colon corresponding to a palpable mass within the mid ascending colon. There is focal tattooing of the serosal aspect distal to the palpable mass. The segment is opened along the antimesocolic aspect. The ileal mucosa is yellow-boothe and reveals multiple small mucosal nodules measuring up to 0.2 cm. There is adiposity of the ileocecal valve with pale brownish discoloration of the mucosa of the ileocecal valve. There are two masses within the mid ascending colon. The largest mass is a circumferential, centrally-ulcerated pink to reddish-boothe tumor mass, which measures up to 8.0 cm in circumference and 7.0 cm in length. The puckered area of the serosa corresponds to this mass. Just distal to this mass, there is a partially circumferential, centrally-ulcerated pink to reddish-boothe tumor mass having raised nodular borders. This mass measures up to 8.5 cm in circumference and 4.2 cm in length. This mass is closest to the distal margin and is approximately 7.0 cm from the distal margin. The proximal mass within the ascending colon is approximately 9.0 cm from the proximal (distal ileum margin). There are two small boothe polyps within the cecum, measuring up to 1.5 cm in greatest dimension. The mucosa of the cecum and proximal ascending colon is otherwise yellowish-brown and transversely folded. There appears to be a small pink-boothe polyp within the distal ascending colon measuring up to 0.5 cm. There are some enlarged pink-boothe lymph nodes within the proximal mesocolon measuring up to 1.4 cm. (JPM:mml/pit; 11/10/2018) . After additional overnight fixation the serosa correlating to the masses is inked black and the nearest mesenteric margin blue. The 2 ulcerating masses appear by mucosa. Sectioning reveals both tumor masses obliterate the muscular wall with the most distal mass abutting the black inked serosa. The proximal mass grossly approaches the black inked serosa. No additional polyps or mass lesions are identified. The appendix reveals no mucosal lesions. The mesocolon reveals multiple enlarged lymph nodes candidates ranging between 0.2 cm and 2.5 cm with a few being suspicious for malignancy. Carrier Operator sections are submitted as follows: . A1: Proximal margin A2: Distal margin A3: Terminal ileum nodules A4: Fatty ileocecal valve A5: Proximal tumor mass approaching black inked serosa A6: Distal tumor mass grossly abutting black inked serosa A7-A8: Additional distal mass A9: Relationship between the 2 masses A10: Cecal polyps A11: Distal ascending colon polyp A12: Mesenteric margin, perpendicular A13: Appendix A14: One lymph node candidate, serially sectioned A15: One lymph node candidate, trisected A16: One bisected lymph node candidate A17: 2 lymph node candidates, one bisected (entirely submitted) and one applications sales representative A18-A19: Largest lymph node candidate, serially sectioned A20: 2 bisected lymph node candidates, one inked blue A21: Multiple intact lymph node candidates A22: One trisected lymph node candidate and one bisected (inked blue) A23: One trisected lymph node candidate and one bisected (inked blue) (SDY; 11/11/2018) . After initial microscopic examination additional sections of the proximal tumor mass are submitted in A24-A26. (SDY; 11/12/2018) . INTRAOPERATIVE CONSULTATION WITH GROSS IMPRESSION: (Dr. Bola Tijerina) . Distal ileum, cecum, and ascending colon with attached mesocolon, right colon resection: - Circumferential ulcerated carcinoma of proximal to mid ascending colon. - Second partially circumferential centrally-ulcerated carcinoma of mid ascending colon. - Proximal and distal margins of resection, negative for tumor. - Two small polyps of cecum and single small polyp of distal ascending colon. . The results are displayed to Dr. Corbin in the operating room. (JPM:ildefonso; 11/10/2018) . . Gross consultation performed at [facility], [address] [place] [id number]. SYU/QLM . 02 Pathologist provided ICD-10: C18.9, D12.6 . 02 CPT . 608231, 655220 Specimen Comment: A courtesy copy of this report has been sent to Specimen Comment: [phone], , . Specimen Comment: Report sent to ,DR MCCALLUM / DR MEEK Performed at: [address] [place] [address] [address], [place] [id number] MD Yaw Rios MD Phone: [phone] Performed at: [address] [id number] MD Bola Tijerina MD Phone: [phone]
--- NOTE | 2018-11-13 14:49 | NUR ---
SW following. Discussed with RN, [facility] (ph: [phone], fax: [phone])takes pt's insurance. SW attempted to contact pt's daughter, [place] but was unable to get through. RADHA notified RN of home health agency. Clinicals and discharge paperwork to be faxed upon discharge for PT/OT/RN. SW will continue to follow.
[2018-11-13 15:00] VITALS: BP 147/72
[2018-11-13 19:00] VITALS: BP 137/63
[2018-11-13 23:00] VITALS: BP 145/69
[2018-11-14] MEDS: POTASSIUM CL 20MEQ-0.45% NACL 1,000 ML IV SCH ×2 (02:20→12:08)
[2018-11-14 03:00] VITALS: BP 138/58
[2018-11-14] MEDS: HYDROcodone/APAP 5/325MG 1 TAB TABLET PO PRN ×3 (03:25→21:08)
[2018-11-14 04:57] LABS: BASO % 0 % (0-3); EOS # 0.1 x10^3/uL (0.0-0.7); EOS % 1 % (0-3); HEMATOCRIT 25.8 % (36.0-47.0); LYMPH # 2.4 x10^3/uL (1.0-4.8); LYMPH % 33 % (24-48); MEAN CORPUSCULAR HEMOGLOBIN 25 pg (25-35); MEAN CORPUSCULAR HGB CONC 31 g/dL (31-37); MEAN CORPUSCULAR VOLUME 80 fL (79-100); MONO # 0.9 x10^3/uL (0.0-1.1); MONO % 13 % (0-9); NEUT # 3.7 x10^3uL (1.8-7.7); NEUT % 52 % (31-73); PLATELET COUNT 358 x10^3/uL (140-400); RED BLOOD COUNT 3.23 x10^6/uL (3.50-5.40); RED CELL DISTRIBUTION WIDTH 20.3 % (11.5-14.5); WHITE BLOOD COUNT 7.2 x10^3/uL (4.0-11.0)
[2018-11-14 05:31] LABS: CALCIUM 8.5 mg/dL (8.5-10.1); CREATININE 0.9 mg/dL (0.6-1.0); GFR 72.2
[2018-11-14 07:00] VITALS: BP 126/62
[2018-11-14] MEDS: INSULIN LISPRO 300 UNITS/3 ML INSULN.PEN. SQ SCH ×3 (08:00→17:00)
[2018-11-14] MEDS: ONDANSETRON PF 4 MG/2 ML VIAL. IV PRN (08:30)
[2018-11-14] MEDS: amLODIPine BESYLATE 5 MG TABLET PO SCH (08:31)
[2018-11-14] MEDS: FERROUS SULFATE 325 MG TABLET. PO SCH ×2 (08:31→21:07)
[2018-11-14] MEDS: ENOXAPARIN 40 MG/0.4 ML SYRINGE. SQ SCH (08:32)
--- NOTE | 2018-11-14 09:06 | PDOC ---
PULMONARY PROGRESS NOTES Subjective no soa Vitals Vital Signs Date Time Temp Pulse Resp B/P (MAP) Pulse Ox O2 Delivery O2 Flow Rate FiO2 11/14/18 08:31 67 126/62 11/14/18 07:00 97.6 17 99 Room Air 97.6 ROS: No Chest Pain General: Alert, No acute distress Lungs: Crackles (bases) Cardiovascular: S1 Abdomen: Soft, Non-tender Neuro Exam: Alert Extremities: No Edema Skin: Warm Labs Laboratory Tests Test 11/12/18 11:00 11/12/18 16:53 11/12/18 20:30 11/13/18 05:00 Glucose (Fingerstick) 157 mg/dL (70-99) 161 mg/dL (70-99) 149 mg/dL (70-99) White Blood Count 13.8 x10^3/uL (4.0-11.0) Red Blood Count 3.85 x10^6/uL (3.50-5.40) Hemoglobin 9.5 g/dL (12.0-15.5) Hematocrit 30.5 % (36.0-47.0) Mean Corpuscular Volume 79 fL (79-100) Mean Corpuscular Hemoglobin 25 pg (25-35) Mean Corpuscular Hemoglobin Concent 31 g/dL (31-37) Red Cell Distribution Width 20.0 % (11.5-14.5) Platelet Count 417 x10^3/uL (140-400) Neutrophils (%) (Auto) 73 % (31-73) Lymphocytes (%) (Auto) 19 % (24-48) Monocytes (%) (Auto) 7 % (0-9) Eosinophils (%) (Auto) 0 % (0-3) Basophils (%) (Auto) 0 % (0-3) Neutrophils # (Auto) 10.1 x10^3uL (1.8-7.7) Lymphocytes # (Auto) 2.7 x10^3/uL (1.0-4.8) Monocytes # (Auto) 1.0 x10^3/uL (0.0-1.1) Eosinophils # (Auto) 0.0 x10^3/uL (0.0-0.7) Basophils # (Auto) 0.0 x10^3/uL (0.0-0.2) Sodium Level 137 mmol/L (136-145) Potassium Level 4.4 mmol/L (3.5-5.1) Chloride Level 102 mmol/L (98-107) Carbon Dioxide Level 22 mmol/L (21-32) Anion Gap 13 (6-14) Blood Urea Nitrogen 6 mg/dL (7-20) Creatinine 0.8 mg/dL (0.6-1.0) Estimated GFR (Cockcroft-Gault) 82.7 BUN/Creatinine Ratio 8 (6-20) Glucose Level 135 mg/dL (70-99) Calcium Level 8.8 mg/dL (8.5-10.1) Total Bilirubin 0.5 mg/dL (0.2-1.0) Aspartate Amino Transf (AST/SGOT) 15 U/L (15-37) Alanine Aminotransferase (ALT/SGPT) 9 U/L (14-59) Alkaline Phosphatase 74 U/L (46-116) II-Qvx-N-Type Natriuretic Peptide 228 pg/mL (0-449) Total Protein 7.0 g/dL (6.4-8.2) Albumin 2.4 g/dL (3.4-5.0) Albumin/Globulin Ratio 0.5 (1.0-1.7) Test 11/13/18 07:13 11/13/18 11:16 11/13/18 16:50 11/13/18 20:37 Glucose (Fingerstick) 125 mg/dL (70-99) 153 mg/dL (70-99) 117 mg/dL (70-99) 100 mg/dL (70-99) Test 11/14/18 03:46 11/14/18 04:10 11/14/18 06:59 Sodium Level 138 mmol/L (136-145) Potassium Level 4.0 mmol/L (3.5-5.1) Chloride Level 103 mmol/L (98-107) Carbon Dioxide Level 25 mmol/L (21-32) Anion Gap 10 (6-14) Blood Urea Nitrogen 4 mg/dL (7-20) Creatinine 0.9 mg/dL (0.6-1.0) Estimated GFR (Cockcroft-Gault) 72.2 Glucose Level 83 mg/dL (70-99) Calcium Level 8.5 mg/dL (8.5-10.1) White Blood Count 7.2 x10^3/uL (4.0-11.0) Red Blood Count 3.23 x10^6/uL (3.50-5.40) Hemoglobin 8.0 g/dL (12.0-15.5) Hematocrit 25.8 % (36.0-47.0) Mean Corpuscular Volume 80 fL (79-100) Mean Corpuscular Hemoglobin 25 pg (25-35) Mean Corpuscular Hemoglobin Concent 31 g/dL (31-37) Red Cell Distribution Width 20.3 % (11.5-14.5) Platelet Count 358 x10^3/uL (140-400) Neutrophils (%) (Auto) 52 % (31-73) Lymphocytes (%) (Auto) 33 % (24-48) Monocytes (%) (Auto) 13 % (0-9) Eosinophils (%) (Auto) 1 % (0-3) Basophils (%) (Auto) 0 % (0-3) Neutrophils # (Auto) 3.7 x10^3uL (1.8-7.7) Lymphocytes # (Auto) 2.4 x10^3/uL (1.0-4.8) Monocytes # (Auto) 0.9 x10^3/uL (0.0-1.1) Eosinophils # (Auto) 0.1 x10^3/uL (0.0-0.7) Basophils # (Auto) 0.0 x10^3/uL (0.0-0.2) Glucose (Fingerstick) 77 mg/dL (70-99) Laboratory Tests Test 11/13/18 11:16 11/13/18 16:50 11/13/18 20:37 11/14/18 03:46 Glucose (Fingerstick) 153 mg/dL (70-99) 117 mg/dL (70-99) 100 mg/dL (70-99) Sodium Level 138 mmol/L (136-145) Potassium Level 4.0 mmol/L (3.5-5.1) Chloride Level 103 mmol/L (98-107) Carbon Dioxide Level 25 mmol/L (21-32) Anion Gap 10 (6-14) Blood Urea Nitrogen 4 mg/dL (7-20) Creatinine 0.9 mg/dL (0.6-1.0) Estimated GFR (Cockcroft-Gault) 72.2 Glucose Level 83 mg/dL (70-99) Calcium Level 8.5 mg/dL (8.5-10.1) Test 11/14/18 04:10 11/14/18 06:59 White Blood Count 7.2 x10^3/uL (4.0-11.0) Red Blood Count 3.23 x10^6/uL (3.50-5.40) Hemoglobin 8.0 g/dL (12.0-15.5) Hematocrit 25.8 % (36.0-47.0) Mean Corpuscular Volume 80 fL (79-100) Mean Corpuscular Hemoglobin 25 pg (25-35) Mean Corpuscular Hemoglobin Concent 31 g/dL (31-37) Red Cell Distribution Width 20.3 % (11.5-14.5) Platelet Count 358 x10^3/uL (140-400) Neutrophils (%) (Auto) 52 % (31-73) Lymphocytes (%) (Auto) 33 % (24-48) Monocytes (%) (Auto) 13 % (0-9) Eosinophils (%) (Auto) 1 % (0-3) Basophils (%) (Auto) 0 % (0-3) Neutrophils # (Auto) 3.7 x10^3uL (1.8-7.7) Lymphocytes # (Auto) 2.4 x10^3/uL (1.0-4.8) Monocytes # (Auto) 0.9 x10^3/uL (0.0-1.1) Eosinophils # (Auto) 0.1 x10^3/uL (0.0-0.7) Basophils # (Auto) 0.0 x10^3/uL (0.0-0.2) Glucose (Fingerstick) 77 mg/dL (70-99) Medications Active Scripts Medications Dose Route/Sig Max Daily Dose Days Date Category Omeprazole 20 Mg Capsule.dr 1 Cap PO DAILY 10/24/18 Reported Ferrous Sulfate 325 Mg Tablet 1 Tab PO BID 10/24/18 Reported Amlodipine Besylate 5 Mg Tablet 5 Mg PO DAILY 10/24/18 Reported Metformin Hcl 500 Mg Tablet 500 Mg PO BID 11/12/13 Reported Impression . 1. Abnormal chest x-ray now and abnormal CT chest from last year, highly suspicious for early idiopathic pulmonary fibrosis. She has crackles at 1/3 at the bases and the CT chest findings with peripheral fibrotic changes with increased fibrotic changes at the bases are highly consistent with idiopathic pulmonary fibrosis. 2. Recently diagnosed adenocarcinoma of the colon, status post laparoscopic right colon resection. 3. History of deep venous thrombosis, left lower extremity, status post inferior vena cava filter, not an optimum candidate for long-term anticoagulation. 4. No significant tobacco history. Plan . 1. At this point keeping in view of her advanced age, I do not see a need for any biopsy. Conservative follow up on her fibrosis would be reasonable. I would recommend repeating a CAT scan as an outpatient sometimes this year to make a year comparison 2. We will do a 6-minute walk test at the time of discharge. 3. Follow General Surgery recommendations. 4. DVT prophylaxis with Lovenox. She already has an IVC filter. 5. PRN bronchodilators. 6. Discussed with both the daughters and we will follow along with you. CHRISTOPHER GROVES MD Nov 14, 2018 09:06
[2018-11-14 11:00] VITALS: BP 140/59
--- NOTE | 2018-11-14 12:10 | PDOC ---
SURGICAL PROGRESS NOTE Subjective taking some clears no flatus today, no stool no nausea Vital Signs Vital Signs Date Time Temp Pulse Resp B/P (MAP) Pulse Ox O2 Delivery O2 Flow Rate FiO2 11/14/18 11:00 97.5 74 17 140/59 (86) 99 Room Air 97.5 I&O Intake and Output 11/14/18 07:00 Intake Total 195 ml Output Total 0 ml Balance 195 ml Intake Oral 195 ml Output Urine Total 0 ml # Voids 4 General: Alert, Oriented X3, Cooperative, No acute distress Abdomen: Soft, Other (incision c/d/i, no erythema ) Labs Laboratory Tests Test 11/12/18 16:53 11/12/18 20:30 11/13/18 05:00 11/13/18 07:13 Glucose (Fingerstick) 161 mg/dL (70-99) 149 mg/dL (70-99) 125 mg/dL (70-99) White Blood Count 13.8 x10^3/uL (4.0-11.0) Red Blood Count 3.85 x10^6/uL (3.50-5.40) Hemoglobin 9.5 g/dL (12.0-15.5) Hematocrit 30.5 % (36.0-47.0) Mean Corpuscular Volume 79 fL (79-100) Mean Corpuscular Hemoglobin 25 pg (25-35) Mean Corpuscular Hemoglobin Concent 31 g/dL (31-37) Red Cell Distribution Width 20.0 % (11.5-14.5) Platelet Count 417 x10^3/uL (140-400) Neutrophils (%) (Auto) 73 % (31-73) Lymphocytes (%) (Auto) 19 % (24-48) Monocytes (%) (Auto) 7 % (0-9) Eosinophils (%) (Auto) 0 % (0-3) Basophils (%) (Auto) 0 % (0-3) Neutrophils # (Auto) 10.1 x10^3uL (1.8-7.7) Lymphocytes # (Auto) 2.7 x10^3/uL (1.0-4.8) Monocytes # (Auto) 1.0 x10^3/uL (0.0-1.1) Eosinophils # (Auto) 0.0 x10^3/uL (0.0-0.7) Basophils # (Auto) 0.0 x10^3/uL (0.0-0.2) Sodium Level 137 mmol/L (136-145) Potassium Level 4.4 mmol/L (3.5-5.1) Chloride Level 102 mmol/L (98-107) Carbon Dioxide Level 22 mmol/L (21-32) Anion Gap 13 (6-14) Blood Urea Nitrogen 6 mg/dL (7-20) Creatinine 0.8 mg/dL (0.6-1.0) Estimated GFR (Cockcroft-Gault) 82.7 BUN/Creatinine Ratio 8 (6-20) Glucose Level 135 mg/dL (70-99) Calcium Level 8.8 mg/dL (8.5-10.1) Total Bilirubin 0.5 mg/dL (0.2-1.0) Aspartate Amino Transf (AST/SGOT) 15 U/L (15-37) Alanine Aminotransferase (ALT/SGPT) 9 U/L (14-59) Alkaline Phosphatase 74 U/L (46-116) BL-Ydz-[id number]-Type Natriuretic Peptide 228 pg/mL (0-449) Total Protein 7.0 g/dL (6.4-8.2) Albumin 2.4 g/dL (3.4-5.0) Albumin/Globulin Ratio 0.5 (1.0-1.7) Test 11/13/18 11:16 11/13/18 16:50 11/13/18 20:37 11/14/18 03:46 Glucose (Fingerstick) 153 mg/dL (70-99) 117 mg/dL (70-99) 100 mg/dL (70-99) Sodium Level 138 mmol/L (136-145) Potassium Level 4.0 mmol/L (3.5-5.1) Chloride Level 103 mmol/L (98-107) Carbon Dioxide Level 25 mmol/L (21-32) Anion Gap 10 (6-14) Blood Urea Nitrogen 4 mg/dL (7-20) Creatinine 0.9 mg/dL (0.6-1.0) Estimated GFR (Cockcroft-Gault) 72.2 Glucose Level 83 mg/dL (70-99) Calcium Level 8.5 mg/dL (8.5-10.1) Test 11/14/18 04:10 11/14/18 06:59 11/14/18 11:21 White Blood Count 7.2 x10^3/uL (4.0-11.0) Red Blood Count 3.23 x10^6/uL (3.50-5.40) Hemoglobin 8.0 g/dL (12.0-15.5) Hematocrit 25.8 % (36.0-47.0) Mean Corpuscular Volume 80 fL (79-100) Mean Corpuscular Hemoglobin 25 pg (25-35) Mean Corpuscular Hemoglobin Concent 31 g/dL (31-37) Red Cell Distribution Width 20.3 % (11.5-14.5) Platelet Count 358 x10^3/uL (140-400) Neutrophils (%) (Auto) 52 % (31-73) Lymphocytes (%) (Auto) 33 % (24-48) Monocytes (%) (Auto) 13 % (0-9) Eosinophils (%) (Auto) 1 % (0-3) Basophils (%) (Auto) 0 % (0-3) Neutrophils # (Auto) 3.7 x10^3uL (1.8-7.7) Lymphocytes # (Auto) 2.4 x10^3/uL (1.0-4.8) Monocytes # (Auto) 0.9 x10^3/uL (0.0-1.1) Eosinophils # (Auto) 0.1 x10^3/uL (0.0-0.7) Basophils # (Auto) 0.0 x10^3/uL (0.0-0.2) Glucose (Fingerstick) 77 mg/dL (70-99) 80 mg/dL (70-99) Laboratory Tests Test 11/13/18 16:50 11/13/18 20:37 11/14/18 03:46 11/14/18 04:10 Glucose (Fingerstick) 117 mg/dL (70-99) 100 mg/dL (70-99) Sodium Level 138 mmol/L (136-145) Potassium Level 4.0 mmol/L (3.5-5.1) Chloride Level 103 mmol/L (98-107) Carbon Dioxide Level 25 mmol/L (21-32) Anion Gap 10 (6-14) Blood Urea Nitrogen 4 mg/dL (7-20) Creatinine 0.9 mg/dL (0.6-1.0) Estimated GFR (Cockcroft-Gault) 72.2 Glucose Level 83 mg/dL (70-99) Calcium Level 8.5 mg/dL (8.5-10.1) White Blood Count 7.2 x10^3/uL (4.0-11.0) Red Blood Count 3.23 x10^6/uL (3.50-5.40) Hemoglobin 8.0 g/dL (12.0-15.5) Hematocrit 25.8 % (36.0-47.0) Mean Corpuscular Volume 80 fL (79-100) Mean Corpuscular Hemoglobin 25 pg (25-35) Mean Corpuscular Hemoglobin Concent 31 g/dL (31-37) Red Cell Distribution Width 20.3 % (11.5-14.5) Platelet Count 358 x10^3/uL (140-400) Neutrophils (%) (Auto) 52 % (31-73) Lymphocytes (%) (Auto) 33 % (24-48) Monocytes (%) (Auto) 13 % (0-9) Eosinophils (%) (Auto) 1 % (0-3) Basophils (%) (Auto) 0 % (0-3) Neutrophils # (Auto) 3.7 x10^3uL (1.8-7.7) Lymphocytes # (Auto) 2.4 x10^3/uL (1.0-4.8) Monocytes # (Auto) 0.9 x10^3/uL (0.0-1.1) Eosinophils # (Auto) 0.1 x10^3/uL (0.0-0.7) Basophils # (Auto) 0.0 x10^3/uL (0.0-0.2) Test 11/14/18 06:59 11/14/18 11:21 Glucose (Fingerstick) 77 mg/dL (70-99) 80 mg/dL (70-99) Problem List s/p resection continue clears, would hold advancing until improved bowel function YUNIOR ENGLISH ACU[employer]URIST Nov 14, 2018 12:10
[2018-11-14 15:00] VITALS: BP 132/61
--- NOTE | 2018-11-14 15:30 | PDOC ---
PROGRESS NOTES Subjective Subjective feels better. no BM or flatus. seen earlier today. labs reviewed. discussed with daughter. not drinking enough fluids. Objective Objective Vital Signs Date Time Temp Pulse Resp B/P (MAP) Pulse Ox O2 Delivery O2 Flow Rate FiO2 11/14/18 13:56 99 Room Air 11/14/18 11:00 97.5 74 17 140/59 (86) 97.5 11/12/18 08:00 2.0 Intake and Output 11/14/18 07:00 Intake Total 195 ml Output Total 0 ml Balance 195 ml Intake Oral 195 ml Output Urine Total 0 ml # Voids 4 Physical Exam Abdomen: Normal bowel sounds, Soft Heart: Regular rate, Normal S1, Normal S2 Extremities: No edema General: Alert HEENT: Atraumatic Lungs: Other (bibasilar crackles) Neuro: Normal speech Psych/Mental Status: Mood NL Skin: No rashes Assessment Assessment laparoscopic assisted right colon resection for hepatic flexure adenocarcinoma of colon acute blood loss anemia leukocytosis resolved diabetes mellitus type 2 hypertension history of recent IVC filter for LLE DVT ileus suspected pulmonary fibrosis. Plan Plan of Care continue clear liquids continue iv fluids PT Comment Review of Relevant I have reviewed the following items nuria (where applicable) has been applied. Labs Laboratory Tests Test 11/12/18 16:53 11/12/18 20:30 11/13/18 05:00 11/13/18 07:13 Glucose (Fingerstick) 161 mg/dL (70-99) 149 mg/dL (70-99) 125 mg/dL (70-99) White Blood Count 13.8 x10^3/uL (4.0-11.0) Red Blood Count 3.85 x10^6/uL (3.50-5.40) Hemoglobin 9.5 g/dL (12.0-15.5) Hematocrit 30.5 % (36.0-47.0) Mean Corpuscular Volume 79 fL (79-100) Mean Corpuscular Hemoglobin 25 pg (25-35) Mean Corpuscular Hemoglobin Concent 31 g/dL (31-37) Red Cell Distribution Width 20.0 % (11.5-14.5) Platelet Count 417 x10^3/uL (140-400) Neutrophils (%) (Auto) 73 % (31-73) Lymphocytes (%) (Auto) 19 % (24-48) Monocytes (%) (Auto) 7 % (0-9) Eosinophils (%) (Auto) 0 % (0-3) Basophils (%) (Auto) 0 % (0-3) Neutrophils # (Auto) 10.1 x10^3uL (1.8-7.7) Lymphocytes # (Auto) 2.7 x10^3/uL (1.0-4.8) Monocytes # (Auto) 1.0 x10^3/uL (0.0-1.1) Eosinophils # (Auto) 0.0 x10^3/uL (0.0-0.7) Basophils # (Auto) 0.0 x10^3/uL (0.0-0.2) Sodium Level 137 mmol/L (136-145) Potassium Level 4.4 mmol/L (3.5-5.1) Chloride Level 102 mmol/L (98-107) Carbon Dioxide Level 22 mmol/L (21-32) Anion Gap 13 (6-14) Blood Urea Nitrogen 6 mg/dL (7-20) Creatinine 0.8 mg/dL (0.6-1.0) Estimated GFR (Cockcroft-Gault) 82.7 BUN/Creatinine Ratio 8 (6-20) Glucose Level 135 mg/dL (70-99) Calcium Level 8.8 mg/dL (8.5-10.1) Total Bilirubin 0.5 mg/dL (0.2-1.0) Aspartate Amino Transf (AST/SGOT) 15 U/L (15-37) Alanine Aminotransferase (ALT/SGPT) 9 U/L (14-59) Alkaline Phosphatase 74 U/L (46-116) AO-Fnr-X-Type Natriuretic Peptide 228 pg/mL (0-449) Total Protein 7.0 g/dL (6.4-8.2) Albumin 2.4 g/dL (3.4-5.0) Albumin/Globulin Ratio 0.5 (1.0-1.7) Test 11/13/18 11:16 11/13/18 16:50 11/13/18 20:37 11/14/18 03:46 Glucose (Fingerstick) 153 mg/dL (70-99) 117 mg/dL (70-99) 100 mg/dL (70-99) Sodium Level 138 mmol/L (136-145) Potassium Level 4.0 mmol/L (3.5-5.1) Chloride Level 103 mmol/L (98-107) Carbon Dioxide Level 25 mmol/L (21-32) Anion Gap 10 (6-14) Blood Urea Nitrogen 4 mg/dL (7-20) Creatinine 0.9 mg/dL (0.6-1.0) Estimated GFR (Cockcroft-Gault) 72.2 Glucose Level 83 mg/dL (70-99) Calcium Level 8.5 mg/dL (8.5-10.1) Test 11/14/18 04:10 11/14/18 06:59 11/14/18 11:21 White Blood Count 7.2 x10^3/uL (4.0-11.0) Red Blood Count 3.23 x10^6/uL (3.50-5.40) Hemoglobin 8.0 g/dL (12.0-15.5) Hematocrit 25.8 % (36.0-47.0) Mean Corpuscular Volume 80 fL (79-100) Mean Corpuscular Hemoglobin 25 pg (25-35) Mean Corpuscular Hemoglobin Concent 31 g/dL (31-37) Red Cell Distribution Width 20.3 % (11.5-14.5) Platelet Count 358 x10^3/uL (140-400) Neutrophils (%) (Auto) 52 % (31-73) Lymphocytes (%) (Auto) 33 % (24-48) Monocytes (%) (Auto) 13 % (0-9) Eosinophils (%) (Auto) 1 % (0-3) Basophils (%) (Auto) 0 % (0-3) Neutrophils # (Auto) 3.7 x10^3uL (1.8-7.7) Lymphocytes # (Auto) 2.4 x10^3/uL (1.0-4.8) Monocytes # (Auto) 0.9 x10^3/uL (0.0-1.1) Eosinophils # (Auto) 0.1 x10^3/uL (0.0-0.7) Basophils # (Auto) 0.0 x10^3/uL (0.0-0.2) Glucose (Fingerstick) 77 mg/dL (70-99) 80 mg/dL (70-99) Laboratory Tests Test 11/13/18 16:50 11/13/18 20:37 11/14/18 03:46 11/14/18 04:10 Glucose (Fingerstick) 117 mg/dL (70-99) 100 mg/dL (70-99) Sodium Level 138 mmol/L (136-145) Potassium Level 4.0 mmol/L (3.5-5.1) Chloride Level 103 mmol/L (98-107) Carbon Dioxide Level 25 mmol/L (21-32) Anion Gap 10 (6-14) Blood Urea Nitrogen 4 mg/dL (7-20) Creatinine 0.9 mg/dL (0.6-1.0) Estimated GFR (Cockcroft-Gault) 72.2 Glucose Level 83 mg/dL (70-99) Calcium Level 8.5 mg/dL (8.5-10.1) White Blood Count 7.2 x10^3/uL (4.0-11.0) Red Blood Count 3.23 x10^6/uL (3.50-5.40) Hemoglobin 8.0 g/dL (12.0-15.5) Hematocrit 25.8 % (36.0-47.0) Mean Corpuscular Volume 80 fL (79-100) Mean Corpuscular Hemoglobin 25 pg (25-35) Mean Corpuscular Hemoglobin Concent 31 g/dL (31-37) Red Cell Distribution Width 20.3 % (11.5-14.5) Platelet Count 358 x10^3/uL (140-400) Neutrophils (%) (Auto) 52 % (31-73) Lymphocytes (%) (Auto) 33 % (24-48) Monocytes (%) (Auto) 13 % (0-9) Eosinophils (%) (Auto) 1 % (0-3) Basophils (%) (Auto) 0 % (0-3) Neutrophils # (Auto) 3.7 x10^3uL (1.8-7.7) Lymphocytes # (Auto) 2.4 x10^3/uL (1.0-4.8) Monocytes # (Auto) 0.9 x10^3/uL (0.0-1.1) Eosinophils # (Auto) 0.1 x10^3/uL (0.0-0.7) Basophils # (Auto) 0.0 x10^3/uL (0.0-0.2) Test 11/14/18 06:59 11/14/18 11:21 Glucose (Fingerstick) 77 mg/dL (70-99) 80 mg/dL (70-99) Microbiology 11/11/18 Urine Culture - Final, Complete 11/11/18 Urine Culture Result 1 (NICO) - Final, Complete Medications Current Medications Ondansetron HCl (Zofran) 4 mg PRN Q6HRS PRN IV NAUSEA/VOMITING Last administered on 11/10/18at 13:39; Start 11/10/18 at 07:00; Stop 11/11/18 at 06:59; Status DC Fentanyl Citrate (Fentanyl 2ml Vial) 25 mcg PRN Q5MIN PRN IV MILD PAIN; Start 11/10/18 at 07:00; Stop 11/11/18 at 06:59; Status DC Fentanyl Citrate (Fentanyl 2ml Vial) 50 mcg PRN Q5MIN PRN IV MODERATE TO SEVERE PAIN Last administered on 11/10/18at 13:42; Start 11/10/18 at 07:00; Stop at 06:59; Status DC Morphine Sulfate (Morphine Sulfate) 1 mg PRN Q10MIN PRN IV SEVERE PAIN Last administered on 11/10/18at 14:32; Start 11/10/18 at 07:00; Stop 11/11/18 at 06:59; Status DC Ringer's Solution 1,000 ml @ 30 mls/hr Q24H IV Last administered on 11/10/18at 14:31; Start 11/10/18 at 07:00; Stop 11/10/18 at 18:59; Status DC Lidocaine HCl (Xylocaine-Mpf 1% 2ml Vial) 2 ml PRN 1X PRN ID PRIOR TO IV START ; Start 11/10/18 at 07:00; Stop 11/11/18 at 06:59; Status DC Hydromorphone HCl (Dilaudid) 0.5 mg PRN Q10MIN PRN IV SEV PAIN, Second choice; Start 11/10/18 at 07:00; Stop 11/11/18 at 06:59; Status DC Prochlorperazine Edisylate (Compazine) 5 mg PACU PRN PRN IV NAUSEA, MRX1 Last administered on 11/10/18at 13:22; Start 11/10/18 at 07:00; Stop 11/11/18 at 06:59; Status DC Cefazolin Sodium/ Dextrose 50 ml @ 100 mls/hr 1X PREOP PRN IV PRIOR TO PROCEDURE; Start 11/10/18 at 06:00; Stop 11/10/18 at 18:00; Status DC Metronidazole 100 ml @ 100 mls/hr 1X PREOP PRN IV PRIOR TO PROCEDURE; Start at 06:00; Stop 11/10/18 at 18:00; Status DC Bupivacaine HCl/ Epinephrine Bitart (Sensorcain-Mpf Epi 0.5%-1:[id number]) 30 ml STK -MED ONCE .ROUTE Last administered on 11/10/18at 10:00; Start 11/10/18 at 08:21; Stop 11/10/18 at 09:21; Status DC Rocuronium [place] (Zemuron) 50 mg STK-MED ONCE .ROUTE ; Start 11/10/18 at 09:31 ; Stop 11/10/18 at 09:32; Status DC Desflurane (Suprane) 60 ml STK-MED ONCE IH ; Start 11/10/18 at 10:08; Stop at 10:09; Status DC Propofol 20 ml @ As Directed STK-MED ONCE IV ; Start 11/10/18 at 10:08; Stop 11/10 at 10:09; Status DC Lidocaine HCl (Lidocaine Pf 2% Vial) 5 ml STK-MED ONCE .ROUTE ; Start 11/10/18 at 10:08; Stop 11/10/18 at 10:09; Status DC Dexamethasone Sodium Phosphate (Decadron) 20 mg STK-MED ONCE .ROUTE ; Start 11/10 at 10:09; Stop 11/10/18 at 10:10; Status DC Ondansetron HCl (Zofran) 4 mg STK-MED ONCE .ROUTE ; Start 11/10/18 at 10:09; Stop 11/10/18 at 10:10; Status DC Neostigmine Methylsulfate (Neostigmine Methylsulfate) 5 mg STK-MED ONCE .ROUTE ; Start 11/10/18 at 10:09; Stop 11/10/18 at 10:10; Status DC Glycopyrrolate (Robinul) 1 mg STK-MED ONCE .ROUTE ; Start 11/10/18 at 10:09; Stop 11/10/18 at 10:10; Status DC Fentanyl Citrate (Fentanyl 2ml Vial) 100 mcg STK-MED ONCE .ROUTE ; Start at 10:10; Stop 11/10/18 at 10:11; Status DC Phenylephrine HCl (PHENYLEPHRINE in 0.9% NACL PF) 1 mg STK-MED ONCE IV ; Start 11/10/18 at 10:23; Stop 11/10/18 at 10:24; Status DC Albuterol Sulfate (Ventolin Hfa) 1 puff 1X ONCE INH ; Start 11/10/18 at 10:45; Stop 11/10/18 at 10:46; Status DC Rocuronium [place] (Zemuron) 50 mg STK-MED ONCE .ROUTE ; Start 11/10/18 at 10:36 ; Stop 11/10/18 at 10:37; Status DC Sevoflurane (Ultane) 90 ml STK-MED ONCE IH ; Start 11/10/18 at 11:52; Stop at 11:53; Status DC Amlodipine Besylate (Norvasc) 5 mg DAILY PO Last administered on 11/12/18at 09:32 ; Start 11/11/18 at 09:00; Stop 11/12/18 at 22:56; Status DC Metformin HCl (Glucophage) 500 mg BIDWMEALS PO Last administered on 11/12/18at 09 :32; Start 11/10/18 at 17:00; Stop 11/12/18 at 16:01; Status DC Pantoprazole Sodium (Protonix) 40 mg DAILYAC PO ; Start 11/11/18 at 07:30; Stop 11/11/18 at 07:30; Status DC Al Hydroxide/Mg Hydroxide (Mylanta Plus Xs) 30 ml PRN Q3HRS PRN PO HEARTBURN / GAS; Start 11/10/18 at 12:00 Diphenhydramine HCl (Benadryl) 25 mg PRN Q6HRS PRN PO ITCHING; Start 11/10/18 at 12:00 Enoxaparin Sodium (Lovenox 40mg Syringe) 40 mg Q24H SQ Last administered on 11/14at 08:32; Start 11/11/18 at 09:00 Sodium Chloride (Normal Saline Flush) 3 ml QSHIFT PRN IV AFTER MEDS AND BLOOD DRAWS; Start 11/10/18 at 12:00 Potassium Chloride/Sodium Chloride 1,000 ml @ 60 mls/hr [id number] IV Last administered on 11/12/18at 03:59; Start 11/10/18 at 15:00; Stop 11/12/18 at 14:59; Status DC Hydromorphone HCl (Dilaudid) 0.5 mg PRN Q4HRS PRN IV PAIN, SEE COMMENTS Last administered on 11/10/18at 20:12; Start 11/10/18 at 12:00; Stop 11/11/18 at 10:31; Status DC Ondansetron HCl (Zofran) 4 mg PRN Q6HRS PRN IV NAUESA, 1ST CHOICE Last administered on 11/14/18at 08:30; Start 11/10/18 at 12:00 Insulin Human Lispro (HumaLOG) 0-6 UNITS 300-39... TIDWMEALS SQ ; Start 11/10/18 at 17:00; Stop 11/11/18 at 10:35; Status DC Pantoprazole Sodium (PROTONIX VIAL for IV PUSH) 40 mg DAILYAC IVP Last administered on 11/12/18at 05:20; Start 11/11/18 at 07:30; Stop 11/12/18 at 10:30; Status DC Throat Lozenges (Chloraseptic) 1 spray PRN Q2HR PRN PO SORE THROAT, 2ND CHOICE ; Start 11/10/18 at 18:30 Throat Lozenges (Cepacol Sore Throat Lozenge) 1 taiwo PRN Q2HRS PRN PO SORE THROAT, 1ST CHOICE Last administered on 11/13/18at 11:46; Start 11/10/18 at 18:30 Hydromorphone HCl (Dilaudid) 0.5 mg PRN Q3HRS PRN IV MODERATE PAIN; Start at 22:30; Stop 11/11/18 at 12:22; Status DC Hydromorphone HCl (Dilaudid) 1 mg PRN Q3HRS PRN IV SEVERE PAIN Last administered on 11/11/18at 11:21; Start 11/10/18 at 22:30; Stop 11/11/18 at 12:22; Status DC Insulin Human Lispro (HumaLOG) 0-6 UNITS BG 300-39... TIDWMEALS SQ ; Start at 12:00 Metronidazole (FLAGYL 500Mmg PREMIX) 500 mg STK-MED ONCE IV ; Start 11/10/18 at 09:00; Stop 11/11/18 at 11:24; Status DC Acetaminophen/ Hydrocodone Bitart (Lortab 5/325) 1 tab PRN Q4HRS PRN PO MODERATE TO SEVERE PAIN Last administered on 11/14/18 12:08; Start 11/11/18 at 12 :30 Morphine Sulfate (Morphine Sulfate) 1 mg PRN Q1HR PRN IV PAIN Last administered on 11/11/18 23:29; Start 11/11/18 at 20:00; Stop 11/12/18 at 10:30; Status DC Ferrous Sulfate (Feosol) 325 mg BID PO Last administered on 11/14/18 08:31; Start 11/12/18 at 12:00 Acetaminophen (Tylenol) 650 mg PRN Q6HRS PRN PO MILD PAIN / TEMP; Start at 10:30 Potassium Chloride/Sodium Chloride 1,000 ml @ 60 mls/hr [id number] IV Last administered on 11/14/18 12:08; Start 11/12/18 at 17:00 Promethazine HCl (Phenergan Supp) 25 mg PRN Q6HRS PRN [place] NAUSEA/VOMITING Last administered on 11/12/18 21:38; Start 11/12/18 at 19:45 Amlodipine Besylate (Norvasc) 10 mg DAILY PO Last administered on 11/14/18 08: 31; Start 11/13/18 at 09:00 Hydralazine HCl (Apresoline) 25 mg PRN Q6HRS PRN PO HYPERTENSION Last administered on 11/13/18at 10:44; Start 11/12/18 at 23:00 Active Scripts Active Reported Omeprazole 20 Mg Capsule.dr 1 Cap PO DAILY Ferrous Sulfate 325 Mg Tablet 1 Tab PO BID Amlodipine Besylate 5 Mg Tablet 5 Mg PO DAILY Metformin Hcl 500 Mg Tablet 500 Mg PO BID Vitals/I & O Vital Sign - Last 24 Hours 11/13/18 11/13/18 11/13/1819 19:00 20:00 23:00 03:00 Temp 97.8 98.6 97.8 97.8 98.6 97.8 Pulse 83 84 74 Resp 18 18 18 B/P (MAP) 137/63 (87) 145/69 (94) 138/58 (84) Pulse Ox 98 98 96 O2 Delivery Room Air Room Air Room Air Room Air 11/14/18 11/14/18 11/14/18 11/14/18 03:25 04:25 07:00 08:31 Temp 97.6 97.6 Pulse 67 67 Resp 18 16 17 B/P (MAP) 126/62 (83) 126/62 Pulse Ox 99 O2 Delivery Room Air Room Air 11/14/18 11/14/18 11/14/18 11:00 12:08 13:56 Temp 97.5 97.5 Pulse 74 Resp 17 B/P (MAP) 140/59 (86) Pulse Ox 99 99 99 O2 Delivery Room Air Room Air Room Air Intake and Output 11/13/18 11/13/18 11/14/18 15:00 23:00 07:00 Intake Total 75 ml 120 ml Output Total 0 ml Balance 75 ml 120 ml DARVIN MCCALLUM MD Nov 14, 2018 15:30
[2018-11-14 19:00] VITALS: BP 140/68
[2018-11-14 23:00] VITALS: BP 144/57
[2018-11-15 03:00] VITALS: BP 136/57
[2018-11-15 07:00] VITALS: BP 142/56
--- NOTE | 2018-11-15 07:29 | PDOC ---
PULMONARY PROGRESS NOTES Subjective no soa, no cough, slight abd pain Vitals Vital Signs Date Time Temp Pulse Resp B/P (MAP) Pulse Ox O2 Delivery O2 Flow Rate FiO2 11/15/18 03:00 97.9 67 18 136/57 (83) 98 Room Air 97.9 ROS: No Chest Pain General: Alert, No acute distress HEENT: Other (nc at perrl) Lungs: Crackles (bases) Cardiovascular: S1 Abdomen: Soft, Non-tender Neuro Exam: Alert Extremities: No Edema Skin: Warm Labs Laboratory Tests Test 11/13/18 11:16 11/13/18 16:50 11/13/18 20:37 11/14/18 03:46 Glucose (Fingerstick) 153 mg/dL (70-99) 117 mg/dL (70-99) 100 mg/dL (70-99) Sodium Level 138 mmol/L (136-145) Potassium Level 4.0 mmol/L (3.5-5.1) Chloride Level 103 mmol/L (98-107) Carbon Dioxide Level 25 mmol/L (21-32) Anion Gap 10 (6-14) Blood Urea Nitrogen 4 mg/dL (7-20) Creatinine 0.9 mg/dL (0.6-1.0) Estimated GFR (Cockcroft-Gault) 72.2 Glucose Level 83 mg/dL (70-99) Calcium Level 8.5 mg/dL (8.5-10.1) Test 11/14/18 04:10 11/14/18 06:59 11/14/18 11:21 11/14/18 16:40 White Blood Count 7.2 x10^3/uL (4.0-11.0) Red Blood Count 3.23 x10^6/uL (3.50-5.40) Hemoglobin 8.0 g/dL (12.0-15.5) Hematocrit 25.8 % (36.0-47.0) Mean Corpuscular Volume 80 fL (79-100) Mean Corpuscular Hemoglobin 25 pg (25-35) Mean Corpuscular Hemoglobin Concent 31 g/dL (31-37) Red Cell Distribution Width 20.3 % (11.5-14.5) Platelet Count 358 x10^3/uL (140-400) Neutrophils (%) (Auto) 52 % (31-73) Lymphocytes (%) (Auto) 33 % (24-48) Monocytes (%) (Auto) 13 % (0-9) Eosinophils (%) (Auto) 1 % (0-3) Basophils (%) (Auto) 0 % (0-3) Neutrophils # (Auto) 3.7 x10^3uL (1.8-7.7) Lymphocytes # (Auto) 2.4 x10^3/uL (1.0-4.8) Monocytes # (Auto) 0.9 x10^3/uL (0.0-1.1) Eosinophils # (Auto) 0.1 x10^3/uL (0.0-0.7) Basophils # (Auto) 0.0 x10^3/uL (0.0-0.2) Glucose (Fingerstick) 77 mg/dL (70-99) 80 mg/dL (70-99) 84 mg/dL (70-99) Test 11/14/18 21:01 Glucose (Fingerstick) 72 mg/dL (70-99) Laboratory Tests Test 11/14/18 11:21 11/14/18 16:40 11/14/18 21:01 Glucose (Fingerstick) 80 mg/dL (70-99) 84 mg/dL (70-99) 72 mg/dL (70-99) Medications Active Scripts Medications Dose Route/Sig Max Daily Dose Days Date Category Omeprazole 20 Mg Capsule.dr 1 Cap PO DAILY 10/24/18 Reported Ferrous Sulfate 325 Mg Tablet 1 Tab PO BID 10/24/18 Reported Amlodipine Besylate 5 Mg Tablet 5 Mg PO DAILY 10/24/18 Reported Metformin Hcl 500 Mg Tablet 500 Mg PO BID 11/12/13 Reported Impression . 1. Abnormal chest x-ray now and abnormal CT chest from last year, highly suspicious for early idiopathic pulmonary fibrosis. She has crackles at 1/3 at the bases and the CT chest findings with peripheral fibrotic changes with increased fibrotic changes at the bases are highly consistent with idiopathic pulmonary fibrosis. 2. Recently diagnosed adenocarcinoma of the colon, status post laparoscopic right colon resection. 3. History of deep venous thrombosis, left lower extremity, status post inferior vena cava filter, not an optimum candidate for long-term anticoagulation. 4. No significant tobacco history. Plan . 1. At this point keeping in view of her advanced age bx is not recommended. Conservative follow up on her fibrosis would be reasonable, repeat a CAT scan as an outpatient sometimes this year to make a year comparison 2. 6-minute walk test at the time of discharge. 3. Follow General Surgery recommendations. 4. DVT prophylaxis with Lovenox. She already has an IVC filter. 5. PRN bronchodilators. IS, the importance of use discussed 6. Discussed with pt MAICOL BONNER MD Nov 15, 2018 07:29
[2018-11-15] MEDS: INSULIN LISPRO 300 UNITS/3 ML INSULN.PEN. SQ SCH ×3 (08:00→17:00)
--- NOTE | 2018-11-15 09:12 | PDOC ---
[employer] 11/15/18 0912: SURGICAL PROGRESS NOTE Subjective + flatus now tolerating clears overall feeling better Vital Signs Vital Signs Date Time Temp Pulse Resp B/P (MAP) Pulse Ox O2 Delivery O2 Flow Rate FiO2 11/15/18 07:00 97.9 72 18 142/56 (84) 96 Room Air 97.9 I&O Intake and Output 11/15/18 07:00 Intake Total 1410 ml Balance 1410 ml Intake Oral 350 ml IV Total 1060 ml # Voids 8 General: Alert, Oriented X3, Cooperative, No acute distress Abdomen: Soft, Other (ND, incision c/d/i, no erythema ) Labs Laboratory Tests Test 11/13/18 11:16 11/13/18 16:50 11/13/18 20:37 11/14/18 03:46 Glucose (Fingerstick) 153 mg/dL (70-99) 117 mg/dL (70-99) 100 mg/dL (70-99) Sodium Level 138 mmol/L (136-145) Potassium Level 4.0 mmol/L (3.5-5.1) Chloride Level 103 mmol/L (98-107) Carbon Dioxide Level 25 mmol/L (21-32) Anion Gap 10 (6-14) Blood Urea Nitrogen 4 mg/dL (7-20) Creatinine 0.9 mg/dL (0.6-1.0) Estimated GFR (Cockcroft-Gault) 72.2 Glucose Level 83 mg/dL (70-99) Calcium Level 8.5 mg/dL (8.5-10.1) Test 11/14/18 04:10 11/14/18 06:59 11/14/18 11:21 11/14/18 16:40 White Blood Count 7.2 x10^3/uL (4.0-11.0) Red Blood Count 3.23 x10^6/uL (3.50-5.40) Hemoglobin 8.0 g/dL (12.0-15.5) Hematocrit 25.8 % (36.0-47.0) Mean Corpuscular Volume 80 fL (79-100) Mean Corpuscular Hemoglobin 25 pg (25-35) Mean Corpuscular Hemoglobin Concent 31 g/dL (31-37) Red Cell Distribution Width 20.3 % (11.5-14.5) Platelet Count 358 x10^3/uL (140-400) Neutrophils (%) (Auto) 52 % (31-73) Lymphocytes (%) (Auto) 33 % (24-48) Monocytes (%) (Auto) 13 % (0-9) Eosinophils (%) (Auto) 1 % (0-3) Basophils (%) (Auto) 0 % (0-3) Neutrophils # (Auto) 3.7 x10^3uL (1.8-7.7) Lymphocytes # (Auto) 2.4 x10^3/uL (1.0-4.8) Monocytes # (Auto) 0.9 x10^3/uL (0.0-1.1) Eosinophils # (Auto) 0.1 x10^3/uL (0.0-0.7) Basophils # (Auto) 0.0 x10^3/uL (0.0-0.2) Glucose (Fingerstick) 77 mg/dL (70-99) 80 mg/dL (70-99) 84 mg/dL (70-99) Test 11/14/18 21:01 11/15/18 07:16 Glucose (Fingerstick) 72 mg/dL (70-99) 71 mg/dL (70-99) Laboratory Tests Test 11/14/18 11:21 11/14/18 16:40 11/14/18 21:01 11/15/18 07:16 Glucose (Fingerstick) 80 mg/dL (70-99) 84 mg/dL (70-99) 72 mg/dL (70-99) 71 mg/dL (70-99) Problem List s/p resection advance to [place] SHAGUFTA HA MD 11/15/18 1015: SURGICAL PROGRESS NOTE Assessment/Plan Advancing diet agree with Ibarra assessment and plan continue supportive care [employer] Nov 15, 2018 09:12 SHAGUFTA HA MD Nov 15, 2018 10:15
--- NOTE | 2018-11-15 10:17 | PDOC ---
PROGRESS NOTES Subjective Subjective feels better. passed flatus. comfortable. Objective Objective Vital Signs Date Time Temp Pulse Resp B/P (MAP) Pulse Ox O2 Delivery O2 Flow Rate FiO2 11/15/18 07:00 97.9 72 18 142/56 (84) 96 Room Air 97.9 11/12/18 08:00 2.0 Intake and Output 11/15/18 07:00 Intake Total 1410 ml Balance 1410 ml Intake Oral 350 ml IV Total 1060 ml # Voids 8 Physical Exam Abdomen: Soft Heart: Regular rate, Normal S1, Normal S2 Extremities: No edema General: Alert HEENT: Atraumatic Lungs: Clear to auscultation Neuro: Normal speech Psych/Mental Status: Mental status NL Skin: No rashes Assessment Assessment laparoscopic assisted right colon resection for hepatic flexure adenocarcinoma of colon acute blood loss anemia leukocytosis resolved diabetes mellitus type 2 hypertension history of recent IVC filter for LLE DVT ileus better suspected pulmonary fibrosis. Plan Plan of Care advance to full liquids continue iv fuids PT labs tomorrow Comment Review of Relevant I have reviewed the following items nuria (where applicable) has been applied. Labs Laboratory Tests Test 11/13/18 11:16 11/13/18 16:50 11/13/18 20:37 11/14/18 03:46 Glucose (Fingerstick) 153 mg/dL (70-99) 117 mg/dL (70-99) 100 mg/dL (70-99) Sodium Level 138 mmol/L (136-145) Potassium Level 4.0 mmol/L (3.5-5.1) Chloride Level 103 mmol/L (98-107) Carbon Dioxide Level 25 mmol/L (21-32) Anion Gap 10 (6-14) Blood Urea Nitrogen 4 mg/dL (7-20) Creatinine 0.9 mg/dL (0.6-1.0) Estimated GFR (Cockcroft-Gault) 72.2 Glucose Level 83 mg/dL (70-99) Calcium Level 8.5 mg/dL (8.5-10.1) Test 11/14/18 04:10 11/14/18 06:59 11/14/18 11:21 11/14/18 16:40 White Blood Count 7.2 x10^3/uL (4.0-11.0) Red Blood Count 3.23 x10^6/uL (3.50-5.40) Hemoglobin 8.0 g/dL (12.0-15.5) Hematocrit 25.8 % (36.0-47.0) Mean Corpuscular Volume 80 fL (79-100) Mean Corpuscular Hemoglobin 25 pg (25-35) Mean Corpuscular Hemoglobin Concent 31 g/dL (31-37) Red Cell Distribution Width 20.3 % (11.5-14.5) Platelet Count 358 x10^3/uL (140-400) Neutrophils (%) (Auto) 52 % (31-73) Lymphocytes (%) (Auto) 33 % (24-48) Monocytes (%) (Auto) 13 % (0-9) Eosinophils (%) (Auto) 1 % (0-3) Basophils (%) (Auto) 0 % (0-3) Neutrophils # (Auto) 3.7 x10^3uL (1.8-7.7) Lymphocytes # (Auto) 2.4 x10^3/uL (1.0-4.8) Monocytes # (Auto) 0.9 x10^3/uL (0.0-1.1) Eosinophils # (Auto) 0.1 x10^3/uL (0.0-0.7) Basophils # (Auto) 0.0 x10^3/uL (0.0-0.2) Glucose (Fingerstick) 77 mg/dL (70-99) 80 mg/dL (70-99) 84 mg/dL (70-99) Test 11/14/18 21:01 11/15/18 07:16 Glucose (Fingerstick) 72 mg/dL (70-99) 71 mg/dL (70-99) Laboratory Tests Test 11/14/18 11:21 11/14/18 16:40 11/14/18 21:01 11/15/18 07:16 Glucose (Fingerstick) 80 mg/dL (70-99) 84 mg/dL (70-99) 72 mg/dL (70-99) 71 mg/dL (70-99) Microbiology 11/11/18 Urine Culture - Final, Complete 11/11/18 Urine Culture Result 1 (NICO) - Final, Complete Medications Current Medications Ondansetron HCl (Zofran) 4 mg PRN Q6HRS PRN IV NAUSEA/VOMITING Last administered on 11/10/18at 13:39; Start 11/10/18 at 07:00; Stop 11/11/18 at 06:59; Status DC Fentanyl Citrate (Fentanyl 2ml Vial) 25 mcg PRN Q5MIN PRN IV MILD PAIN; Start 11/10/18 at 07:00; Stop 11/11/18 at 06:59; Status DC Fentanyl Citrate (Fentanyl 2ml Vial) 50 mcg PRN Q5MIN PRN IV MODERATE TO SEVERE PAIN Last administered on 11/10/18at 13:42; Start 11/10/18 at 07:00; Stop at 06:59; Status DC Morphine Sulfate (Morphine Sulfate) 1 mg PRN Q10MIN PRN IV SEVERE PAIN Last administered on 11/10/18at 14:32; Start 11/10/18 at 07:00; Stop 11/11/18 at 06:59; Status DC Ringer's Solution 1,000 ml @ 30 mls/hr Q24H IV Last administered on 11/10/18at 14:31; Start 11/10/18 at 07:00; Stop 11/10/18 at 18:59; Status DC Lidocaine HCl (Xylocaine-Mpf 1% 2ml Vial) 2 ml PRN 1X PRN ID PRIOR TO IV START ; Start 11/10/18 at 07:00; Stop 11/11/18 at 06:59; Status DC Hydromorphone HCl (Dilaudid) 0.5 mg PRN Q10MIN PRN IV SEV PAIN, Second choice; Start 11/10/18 at 07:00; Stop 11/11/18 at 06:59; Status DC Prochlorperazine Edisylate (Compazine) 5 mg PACU PRN PRN IV NAUSEA, MRX1 Last administered on 11/10/18at 13:22; Start 11/10/18 at 07:00; Stop 11/11/18 at 06:59; Status DC Cefazolin Sodium/ Dextrose 50 ml @ 100 mls/hr 1X PREOP PRN IV PRIOR TO PROCEDURE; Start 11/10/18 at 06:00; Stop 11/10/18 at 18:00; Status DC Metronidazole 100 ml @ 100 mls/hr 1X PREOP PRN IV PRIOR TO PROCEDURE; Start at 06:00; Stop 11/10/18 at 18:00; Status DC Bupivacaine HCl/ Epinephrine Bitart (Sensorcain-Mpf Epi 0.5%-[id number]) 30 ml STK -MED ONCE .ROUTE Last administered on 11/10/18at 10:00; Start 11/10/18 at 08:21; Stop 11/10/18 at 09:21; Status DC Rocuronium [place] (Zemuron) 50 mg STK-MED ONCE .ROUTE ; Start 11/10/18 at 09:31 ; Stop 11/10/18 at 09:32; Status DC Desflurane (Suprane) 60 ml STK-MED ONCE IH ; Start 11/10/18 at 10:08; Stop at 10:09; Status DC Propofol 20 ml @ As Directed STK-MED ONCE IV ; Start 11/10/18 at 10:08; Stop 11/10 at 10:09; Status DC Lidocaine HCl (Lidocaine Pf 2% Vial) 5 ml STK-MED ONCE .ROUTE ; Start 11/10/18 at 10:08; Stop 11/10/18 at 10:09; Status DC Dexamethasone Sodium Phosphate (Decadron) 20 mg STK-MED ONCE .ROUTE ; Start 11/10 at 10:09; Stop 11/10/18 at 10:10; Status DC Ondansetron HCl (Zofran) 4 mg STK-MED ONCE .ROUTE ; Start 11/10/18 at 10:09; Stop 11/10/18 at 10:10; Status DC Neostigmine Methylsulfate (Neostigmine Methylsulfate) 5 mg STK-MED ONCE .ROUTE ; Start 11/10/18 at 10:09; Stop 11/10/18 at 10:10; Status DC Glycopyrrolate (Robinul) 1 mg STK-MED ONCE .ROUTE ; Start 11/10/18 at 10:09; Stop 11/10/18 at 10:10; Status DC Fentanyl Citrate (Fentanyl 2ml Vial) 100 mcg STK-MED ONCE .ROUTE ; Start at 10:10; Stop 11/10/18 at 10:11; Status DC Phenylephrine HCl (PHENYLEPHRINE in 0.9% NACL PF) 1 mg STK-MED ONCE IV ; Start 11/10/18 at 10:23; Stop 11/10/18 at 10:24; Status DC Albuterol Sulfate (Ventolin Hfa) 1 puff 1X ONCE INH ; Start 11/10/18 at 10:45; Stop 11/10/18 at 10:46; Status DC Rocuronium [place] (Zemuron) 50 mg STK-MED ONCE .ROUTE ; Start 11/10/18 at 10:36 ; Stop 11/10/18 at 10:37; Status DC Sevoflurane (Ultane) 90 ml STK-MED ONCE IH ; Start 11/10/18 at 11:52; Stop at 11:53; Status DC Amlodipine Besylate (Norvasc) 5 mg DAILY PO Last administered on 11/12/18at 09:32 ; Start 11/11/18 at 09:00; Stop 11/12/18 at 22:56; Status DC Metformin HCl (Glucophage) 500 mg BIDWMEALS PO Last administered on 11/12/18at 09 :32; Start 11/10/18 at 17:00; Stop 11/12/18 at 16:01; Status DC Pantoprazole Sodium (Protonix) 40 mg DAILYAC PO ; Start 11/11/18 at 07:30; Stop 11/11/18 at 07:30; Status DC Al Hydroxide/Mg Hydroxide (Mylanta Plus Xs) 30 ml PRN Q3HRS PRN PO HEARTBURN / GAS; Start 11/10/18 at 12:00 Diphenhydramine HCl (Benadryl) 25 mg PRN Q6HRS PRN PO ITCHING; Start 11/10/18 at 12:00 Enoxaparin Sodium (Lovenox 40mg Syringe) 40 mg Q24H SQ Last administered on 11/14at 08:32; Start 11/11/18 at 09:00 Sodium Chloride (Normal Saline Flush) 3 ml QSHIFT PRN IV AFTER MEDS AND BLOOD DRAWS; Start 11/10/18 at 12:00 Potassium Chloride/Sodium Chloride 1,000 ml @ 60 mls/hr [id number] IV Last administered on 11/12/18at 03:59; Start 11/10/18 at 15:00; Stop 11/12/18 at 14:59; Status DC Hydromorphone HCl (Dilaudid) 0.5 mg PRN Q4HRS PRN IV PAIN, SEE COMMENTS Last administered on 11/10/18at 20:12; Start 11/10/18 at 12:00; Stop 11/11/18 at 10:31; Status DC Ondansetron HCl (Zofran) 4 mg PRN Q6HRS PRN IV NAUESA, 1ST CHOICE Last administered on 11/14/18at 08:30; Start 11/10/18 at 12:00 Insulin Human Lispro (HumaLOG) 0-6 UNITS 300-39... TIDWMEALS SQ ; Start 11/10/18 at 17:00; Stop 11/11/18 at 10:35; Status DC Pantoprazole Sodium (PROTONIX VIAL for IV PUSH) 40 mg DAILYAC IVP Last administered on 11/12/18at 05:20; Start 11/11/18 at 07:30; Stop 11/12/18 at 10:30; Status DC Throat Lozenges (Chloraseptic) 1 spray PRN Q2HR PRN PO SORE THROAT, 2ND CHOICE ; Start 11/10/18 at 18:30 Throat Lozenges (Cepacol Sore Throat Lozenge) 1 taiwo PRN Q2HRS PRN PO SORE THROAT, 1ST CHOICE Last administered on 11/13/18at 11:46; Start 11/10/18 at 18:30 Hydromorphone HCl (Dilaudid) 0.5 mg PRN Q3HRS PRN IV MODERATE PAIN; Start at 22:30; Stop 11/11/18 at 12:22; Status DC Hydromorphone HCl (Dilaudid) 1 mg PRN Q3HRS PRN IV SEVERE PAIN Last administered on 11/11/18at 11:21; Start 11/10/18 at 22:30; Stop 11/11/18 at 12:22; Status DC Insulin Human Lispro (HumaLOG) 0-6 UNITS BG 300-39... TIDWMEALS SQ ; Start at 12:00 Metronidazole (FLAGYL 500Mmg PREMIX) 500 mg STK-MED ONCE IV ; Start 11/10/18 at 09:00; Stop 11/11/18 at 11:24; Status DC Acetaminophen/ Hydrocodone Bitart (Lortab 5/325) 1 tab PRN Q4HRS PRN PO MODERATE TO SEVERE PAIN Last administered on 11/14/18 21:08; Start 11/11/18 at 12 :30 Morphine Sulfate (Morphine Sulfate) 1 mg PRN Q1HR PRN IV PAIN Last administered on 11/11/18 23:29; Start 11/11/18 at 20:00; Stop 11/12/18 at 10:30; Status DC Ferrous Sulfate (Feosol) 325 mg BID PO Last administered on 11/14/18 21:07; Start 11/12/18 at 12:00 Acetaminophen (Tylenol) 650 mg PRN Q6HRS PRN PO MILD PAIN / TEMP; Start at 10:30 Potassium Chloride/Sodium Chloride 1,000 ml @ 60 mls/hr [id number] IV Last administered on 11/14/18 12:08; Start 11/12/18 at 17:00 Promethazine HCl (Phenergan Supp) 25 mg PRN Q6HRS PRN AR NAUSEA/VOMITING Last administered on 11/12/18 21:38; Start 11/12/18 at 19:45 Amlodipine Besylate (Norvasc) 10 mg DAILY PO Last administered on 11/14/18 08: 31; Start 11/13/18 at 09:00 Hydralazine HCl (Apresoline) 25 mg PRN Q6HRS PRN PO HYPERTENSION Last administered on 11/13/18 10:44; Start 11/12/18 at 23:00 Active Scripts Active Reported Omeprazole 20 Mg Capsule.dr 1 Cap PO DAILY Ferrous Sulfate 325 Mg Tablet 1 Tab PO BID Amlodipine Besylate 5 Mg Tablet 5 Mg PO DAILY Metformin Hcl 500 Mg Tablet 500 Mg PO BID Vitals/I & O Vital Sign - Last 24 Hours 11/14/18 11/14/18 11/14/18 11/14/18 11:00 12:08 13:56 15:00 Temp 97.5 97.7 97.5 97.7 Pulse 74 68 Resp 17 17 B/P (MAP) 140/59 (86) 132/61 (84) Pulse Ox 99 99 99 98 O2 Delivery Room Air Room Air Room Air 11/14/18 11/14/18 11/14/18 11/14/18 19:00 20:00 21:08 22:15 Temp 97.7 97.7 Pulse 78 Resp 18 18 16 B/P (MAP) 140/68 (92) Pulse Ox 99 O2 Delivery Room Air Room Air Room Air Room Air 11/14/18 11/15/18 11/15/18 23:00 03:00 07:00 Temp 97.9 97.9 97.9 97.9 97.9 97.9 Pulse 91 67 72 Resp 18 18 18 B/P (MAP) 144/57 (86) 136/57 (83) 142/56 (84) Pulse Ox 95 98 96 O2 Delivery Room Air Room Air Room Air Intake and Output 11/14/18 11/14/18 11/15/18 15:00 23:00 07:00 Intake Total 1100 ml 310 ml Balance 1100 ml 310 ml DARVIN MCCALLUM MD Nov 15, 2018 10:17
[2018-11-15 11:00] VITALS: BP 155/59
[2018-11-15] MEDS: amLODIPine BESYLATE 5 MG TABLET PO SCH (11:38)
[2018-11-15] MEDS: FERROUS SULFATE 325 MG TABLET. PO SCH ×2 (11:38→20:54)
[2018-11-15] MEDS: ENOXAPARIN 40 MG/0.4 ML SYRINGE. SQ SCH (11:39)
[2018-11-15 15:00] VITALS: BP 136/54
[2018-11-15] MEDS: POTASSIUM CL 20MEQ-0.45% NACL 1,000 ML IV SCH (18:13)
[2018-11-15 19:00] VITALS: BP 138/59
[2018-11-15] MEDS: HYDROcodone/APAP 5/325MG 1 TAB TABLET PO PRN (20:54)
[2018-11-15 23:00] VITALS: BP 141/60
[2018-11-16 03:00] VITALS: BP 138/62
[2018-11-16 05:04] LABS: BASO % 1 % (0-3); EOS # 0.1 x10^3/uL (0.0-0.7); EOS % 1 % (0-3); HEMATOCRIT 24.3 % (36.0-47.0); HEMOGLOBIN 7.7 g/dL (12.0-15.5); LYMPH # 1.9 x10^3/uL (1.0-4.8); LYMPH % 30 % (24-48); MEAN CORPUSCULAR HEMOGLOBIN 25 pg (25-35); MEAN CORPUSCULAR HGB CONC 32 g/dL (31-37); MEAN CORPUSCULAR VOLUME 80 fL (79-100); MONO # 0.7 x10^3/uL (0.0-1.1); MONO % 12 % (0-9); NEUT # 3.5 x10^3uL (1.8-7.7); NEUT % 56 % (31-73); PLATELET COUNT 334 x10^3/uL (140-400); RED BLOOD COUNT 3.05 x10^6/uL (3.50-5.40); WHITE BLOOD COUNT 6.2 x10^3/uL (4.0-11.0)
[2018-11-16 05:30] LABS: CALCIUM 8.5 mg/dL (8.5-10.1); CREATININE 0.7 mg/dL (0.6-1.0); GFR 96.5; POTASSIUM 3.7 mmol/L (3.5-5.1)
[2018-11-16] MEDS: POTASSIUM CL 20MEQ-0.45% NACL 1,000 ML IV SCH (06:16)
[2018-11-16 07:00] VITALS: BP 131/63
[2018-11-16] MEDS: INSULIN LISPRO 300 UNITS/3 ML INSULN.PEN. SQ SCH ×3 (08:00→17:00)
[2018-11-16] MEDS: ENOXAPARIN 40 MG/0.4 ML SYRINGE. SQ SCH (08:36)
[2018-11-16] MEDS: amLODIPine BESYLATE 5 MG TABLET PO SCH (08:37)
[2018-11-16] MEDS: FERROUS SULFATE 325 MG TABLET. PO SCH ×2 (08:37→21:26)
--- NOTE | 2018-11-16 09:17 | PDOC ---
YUNIOR ENGLISH RN FIRST ASSISTANT 11/16/18 0917: SURGICAL PROGRESS NOTE Subjective tolerating diet some stool no nausea Vital Signs Vital Signs Date Time Temp Pulse Resp B/P (MAP) Pulse Ox O2 Delivery O2 Flow Rate FiO2 11/16/18 08:37 70 131/63 11/16/18 07:00 97.8 16 99 Room Air 97.8 I&O Intake and Output 11/16/18 07:00 Intake Total 1840 ml Output Total 201 ml Balance 1639 ml Intake Oral 900 ml IV Total 940 ml Output Urine Total 201 ml # Voids 4 General: Alert, Oriented X3, Cooperative, No acute distress Abdomen: Soft, No tenderness Labs Laboratory Tests Test 11/14/18 11:21 11/14/18 16:40 11/14/18 21:01 11/15/18 07:16 Glucose (Fingerstick) 80 mg/dL (70-99) 84 mg/dL (70-99) 72 mg/dL (70-99) 71 mg/dL (70-99) Test 11/15/18 11:30 11/15/18 16:52 11/15/18 20:48 11/16/18 04:30 Glucose (Fingerstick) 71 mg/dL (70-99) 75 mg/dL (70-99) 79 mg/dL (70-99) White Blood Count 6.2 x10^3/uL (4.0-11.0) Red Blood Count 3.05 x10^6/uL (3.50-5.40) Hemoglobin 7.7 g/dL (12.0-15.5) Hematocrit 24.3 % (36.0-47.0) Mean Corpuscular Volume 80 fL (79-100) Mean Corpuscular Hemoglobin 25 pg (25-35) Mean Corpuscular Hemoglobin Concent 32 g/dL (31-37) Red Cell Distribution Width 20.0 % (11.5-14.5) Platelet Count 334 x10^3/uL (140-400) Neutrophils (%) (Auto) 56 % (31-73) Lymphocytes (%) (Auto) 30 % (24-48) Monocytes (%) (Auto) 12 % (0-9) Eosinophils (%) (Auto) 1 % (0-3) Basophils (%) (Auto) 1 % (0-3) Neutrophils # (Auto) 3.5 x10^3uL (1.8-7.7) Lymphocytes # (Auto) 1.9 x10^3/uL (1.0-4.8) Monocytes # (Auto) 0.7 x10^3/uL (0.0-1.1) Eosinophils # (Auto) 0.1 x10^3/uL (0.0-0.7) Basophils # (Auto) 0.0 x10^3/uL (0.0-0.2) Test 11/16/18 04:35 11/16/18 06:14 11/16/18 07:24 Sodium Level 138 mmol/L (136-145) Potassium Level 3.7 mmol/L (3.5-5.1) Chloride Level 103 mmol/L (98-107) Carbon Dioxide Level 26 mmol/L (21-32) Anion Gap 9 (6-14) Blood Urea Nitrogen 4 mg/dL (7-20) Creatinine 0.7 mg/dL (0.6-1.0) Estimated GFR (Cockcroft-Gault) 96.5 Glucose Level 76 mg/dL (70-99) Calcium Level 8.5 mg/dL (8.5-10.1) Glucose (Fingerstick) 76 mg/dL (70-99) 78 mg/dL (70-99) Laboratory Tests Test 11/15/18 11:30 11/15/18 16:52 11/15/18 20:48 11/16/18 04:30 Glucose (Fingerstick) 71 mg/dL (70-99) 75 mg/dL (70-99) 79 mg/dL (70-99) White Blood Count 6.2 x10^3/uL (4.0-11.0) Red Blood Count 3.05 x10^6/uL (3.50-5.40) Hemoglobin 7.7 g/dL (12.0-15.5) Hematocrit 24.3 % (36.0-47.0) Mean Corpuscular Volume 80 fL (79-100) Mean Corpuscular Hemoglobin 25 pg (25-35) Mean Corpuscular Hemoglobin Concent 32 g/dL (31-37) Red Cell Distribution Width 20.0 % (11.5-14.5) Platelet Count 334 x10^3/uL (140-400) Neutrophils (%) (Auto) 56 % (31-73) Lymphocytes (%) (Auto) 30 % (24-48) Monocytes (%) (Auto) 12 % (0-9) Eosinophils (%) (Auto) 1 % (0-3) Basophils (%) (Auto) 1 % (0-3) Neutrophils # (Auto) 3.5 x10^3uL (1.8-7.7) Lymphocytes # (Auto) 1.9 x10^3/uL (1.0-4.8) Monocytes # (Auto) 0.7 x10^3/uL (0.0-1.1) Eosinophils # (Auto) 0.1 x10^3/uL (0.0-0.7) Basophils # (Auto) 0.0 x10^3/uL (0.0-0.2) Test 11/16/18 04:35 11/16/18 06:14 11/16/18 07:24 Sodium Level 138 mmol/L (136-145) Potassium Level 3.7 mmol/L (3.5-5.1) Chloride Level 103 mmol/L (98-107) Carbon Dioxide Level 26 mmol/L (21-32) Anion Gap 9 (6-14) Blood Urea Nitrogen 4 mg/dL (7-20) Creatinine 0.7 mg/dL (0.6-1.0) Estimated GFR (Cockcroft-Gault) 96.5 Glucose Level 76 mg/dL (70-99) Calcium Level 8.5 mg/dL (8.5-10.1) Glucose (Fingerstick) 76 mg/dL (70-99) 78 mg/dL (70-99) Problem List advance diet possible dc tomorrow SHAGUFTA HA MD 11/16/18 1241: SURGICAL PROGRESS NOTE Assessment/Plan Agree with Wilmer's assessment and plan YUNIOR ENGLISH RN FIRST ASSISTANT Nov 16, 2018 09:17 SHAGUFTA HA MD Nov 16, 2018 12:41
--- NOTE | 2018-11-16 09:56 | PDOC ---
PROGRESS NOTES Subjective Subjective feels well. had a BM. ambulating with a walker. tolerating full liquids. lab reviewed. bp okay Objective Objective Vital Signs Date Time Temp Pulse Resp B/P (MAP) Pulse Ox O2 Delivery O2 Flow Rate FiO2 11/16/18 08:37 70 131/63 11/16/18 07:00 97.8 16 99 Room Air 97.8 11/12/18 08:00 2.0 Intake and Output 11/16/18 07:00 Intake Total 1840 ml Output Total 201 ml Balance 1639 ml Intake Oral 900 ml IV Total 940 ml Output Urine Total 201 ml # Voids 4 Physical Exam Abdomen: Soft Heart: Regular rate, Normal S1, Normal S2 Extremities: No edema General: Alert HEENT: Atraumatic Lungs: Clear to auscultation Neuro: Normal speech Psych/Mental Status: Mental status NL Skin: No rashes Assessment Assessment laparoscopic assisted right colon resection for hepatic flexure adenocarcinoma of colon acute blood loss anemia leukocytosis resolved diabetes mellitus type 2 hypertension history of recent IVC filter for LLE DVT ileus resolved suspected pulmonary fibrosis. Plan Plan of Care advance to soft solids anticipate dismissal tomorrow decrease iv fluids d/c iv fluids if oral fluid intake is adequate encourage oral fluids Comment Review of Relevant I have reviewed the following items nuria (where applicable) has been applied. Labs Laboratory Tests Test 11/14/18 11:21 11/14/18 16:40 11/14/18 21:01 11/15/18 07:16 Glucose (Fingerstick) 80 mg/dL (70-99) 84 mg/dL (70-99) 72 mg/dL (70-99) 71 mg/dL (70-99) Test 11/15/18 11:30 11/15/18 16:52 11/15/18 20:48 11/16/18 04:30 Glucose (Fingerstick) 71 mg/dL (70-99) 75 mg/dL (70-99) 79 mg/dL (70-99) White Blood Count 6.2 x10^3/uL (4.0-11.0) Red Blood Count 3.05 x10^6/uL (3.50-5.40) Hemoglobin 7.7 g/dL (12.0-15.5) Hematocrit 24.3 % (36.0-47.0) Mean Corpuscular Volume 80 fL (79-100) Mean Corpuscular Hemoglobin 25 pg (25-35) Mean Corpuscular Hemoglobin Concent 32 g/dL (31-37) Red Cell Distribution Width 20.0 % (11.5-14.5) Platelet Count 334 x10^3/uL (140-400) Neutrophils (%) (Auto) 56 % (31-73) Lymphocytes (%) (Auto) 30 % (24-48) Monocytes (%) (Auto) 12 % (0-9) Eosinophils (%) (Auto) 1 % (0-3) Basophils (%) (Auto) 1 % (0-3) Neutrophils # (Auto) 3.5 x10^3uL (1.8-7.7) Lymphocytes # (Auto) 1.9 x10^3/uL (1.0-4.8) Monocytes # (Auto) 0.7 x10^3/uL (0.0-1.1) Eosinophils # (Auto) 0.1 x10^3/uL (0.0-0.7) Basophils # (Auto) 0.0 x10^3/uL (0.0-0.2) Test 11/16/18 04:35 11/16/18 06:14 11/16/18 07:24 Sodium Level 138 mmol/L (136-145) Potassium Level 3.7 mmol/L (3.5-5.1) Chloride Level 103 mmol/L (98-107) Carbon Dioxide Level 26 mmol/L (21-32) Anion Gap 9 (6-14) Blood Urea Nitrogen 4 mg/dL (7-20) Creatinine 0.7 mg/dL (0.6-1.0) Estimated GFR (Cockcroft-Gault) 96.5 Glucose Level 76 mg/dL (70-99) Calcium Level 8.5 mg/dL (8.5-10.1) Glucose (Fingerstick) 76 mg/dL (70-99) 78 mg/dL (70-99) Laboratory Tests Test 11/15/18 11:30 11/15/18 16:52 11/15/18 20:48 11/16/18 04:30 Glucose (Fingerstick) 71 mg/dL (70-99) 75 mg/dL (70-99) 79 mg/dL (70-99) White Blood Count 6.2 x10^3/uL (4.0-11.0) Red Blood Count 3.05 x10^6/uL (3.50-5.40) Hemoglobin 7.7 g/dL (12.0-15.5) Hematocrit 24.3 % (36.0-47.0) Mean Corpuscular Volume 80 fL (79-100) Mean Corpuscular Hemoglobin 25 pg (25-35) Mean Corpuscular Hemoglobin Concent 32 g/dL (31-37) Red Cell Distribution Width 20.0 % (11.5-14.5) Platelet Count 334 x10^3/uL (140-400) Neutrophils (%) (Auto) 56 % (31-73) Lymphocytes (%) (Auto) 30 % (24-48) Monocytes (%) (Auto) 12 % (0-9) Eosinophils (%) (Auto) 1 % (0-3) Basophils (%) (Auto) 1 % (0-3) Neutrophils # (Auto) 3.5 x10^3uL (1.8-7.7) Lymphocytes # (Auto) 1.9 x10^3/uL (1.0-4.8) Monocytes # (Auto) 0.7 x10^3/uL (0.0-1.1) Eosinophils # (Auto) 0.1 x10^3/uL (0.0-0.7) Basophils # (Auto) 0.0 x10^3/uL (0.0-0.2) Test 11/16/18 04:35 11/16/18 06:14 11/16/18 07:24 Sodium Level 138 mmol/L (136-145) Potassium Level 3.7 mmol/L (3.5-5.1) Chloride Level 103 mmol/L (98-107) Carbon Dioxide Level 26 mmol/L (21-32) Anion Gap 9 (6-14) Blood Urea Nitrogen 4 mg/dL (7-20) Creatinine 0.7 mg/dL (0.6-1.0) Estimated GFR (Cockcroft-Gault) 96.5 Glucose Level 76 mg/dL (70-99) Calcium Level 8.5 mg/dL (8.5-10.1) Glucose (Fingerstick) 76 mg/dL (70-99) 78 mg/dL (70-99) Microbiology 11/11/18 Urine Culture - Final, Complete 11/11/18 Urine Culture Result 1 (NICO) - Final, Complete Medications Current Medications Ondansetron HCl (Zofran) 4 mg PRN Q6HRS PRN IV NAUSEA/VOMITING Last administered on 11/10/18at 13:39; Start 11/10/18 at 07:00; Stop 11/11/18 at 06:59; Status DC Fentanyl Citrate (Fentanyl 2ml Vial) 25 mcg PRN Q5MIN PRN IV MILD PAIN; Start 11/10/18 at 07:00; Stop 11/11/18 at 06:59; Status DC Fentanyl Citrate (Fentanyl 2ml Vial) 50 mcg PRN Q5MIN PRN IV MODERATE TO SEVERE PAIN Last administered on 11/10/18at 13:42; Start 11/10/18 at 07:00; Stop at 06:59; Status DC Morphine Sulfate (Morphine Sulfate) 1 mg PRN Q10MIN PRN IV SEVERE PAIN Last administered on 11/10/18at 14:32; Start 11/10/18 at 07:00; Stop 11/11/18 at 06:59; Status DC Ringer's Solution 1,000 ml @ 30 mls/hr Q24H IV Last administered on 11/10/18at 14:31; Start 11/10/18 at 07:00; Stop 11/10/18 at 18:59; Status DC Lidocaine HCl (Xylocaine-Mpf 1% 2ml Vial) 2 ml PRN 1X PRN ID PRIOR TO IV START ; Start 11/10/18 at 07:00; Stop 11/11/18 at 06:59; Status DC Hydromorphone HCl (Dilaudid) 0.5 mg PRN Q10MIN PRN IV SEV PAIN, Second choice; Start 11/10/18 at 07:00; Stop 11/11/18 at 06:59; Status DC Prochlorperazine Edisylate (Compazine) 5 mg PACU PRN PRN IV NAUSEA, MRX1 Last administered on 11/10/18at 13:22; Start 11/10/18 at 07:00; Stop 11/11/18 at 06:59; Status DC Cefazolin Sodium/ Dextrose 50 ml @ 100 mls/hr 1X PREOP PRN IV PRIOR TO PROCEDURE; Start 11/10/18 at 06:00; Stop 11/10/18 at 18:00; Status DC Metronidazole 100 ml @ 100 mls/hr 1X PREOP PRN IV PRIOR TO PROCEDURE; Start at 06:00; Stop 11/10/18 at 18:00; Status DC Bupivacaine HCl/ Epinephrine Bitart (Sensorcain-Mpf Epi 0.5%-[id number]) 30 ml STK -MED ONCE .ROUTE Last administered on 11/10/18at 10:00; Start 11/10/18 at 08:21; Stop 11/10/18 at 09:21; Status DC Rocuronium [place] (Zemuron) 50 mg STK-MED ONCE .ROUTE ; Start 11/10/18 at 09:31 ; Stop 11/10/18 at 09:32; Status DC Desflurane (Suprane) 60 ml STK-MED ONCE IH ; Start 11/10/18 at 10:08; Stop at 10:09; Status DC Propofol 20 ml @ As Directed STK-MED ONCE IV ; Start 11/10/18 at 10:08; Stop 11/10 at 10:09; Status DC Lidocaine HCl (Lidocaine Pf 2% Vial) 5 ml STK-MED ONCE .ROUTE ; Start 11/10/18 at 10:08; Stop 11/10/18 at 10:09; Status DC Dexamethasone Sodium Phosphate (Decadron) 20 mg STK-MED ONCE .ROUTE ; Start 11/10 at 10:09; Stop 11/10/18 at 10:10; Status DC Ondansetron HCl (Zofran) 4 mg STK-MED ONCE .ROUTE ; Start 11/10/18 at 10:09; Stop 11/10/18 at 10:10; Status DC Neostigmine Methylsulfate (Neostigmine Methylsulfate) 5 mg STK-MED ONCE .ROUTE ; Start 11/10/18 at 10:09; Stop 11/10/18 at 10:10; Status DC Glycopyrrolate (Robinul) 1 mg STK-MED ONCE .ROUTE ; Start 11/10/18 at 10:09; Stop 11/10/18 at 10:10; Status DC Fentanyl Citrate (Fentanyl 2ml Vial) 100 mcg STK-MED ONCE .ROUTE ; Start at 10:10; Stop 11/10/18 at 10:11; Status DC Phenylephrine HCl (PHENYLEPHRINE in 0.9% NACL PF) 1 mg STK-MED ONCE IV ; Start 11/10/18 at 10:23; Stop 11/10/18 at 10:24; Status DC Albuterol Sulfate (Ventolin Hfa) 1 puff 1X ONCE INH ; Start 11/10/18 at 10:45; Stop 11/10/18 at 10:46; Status DC Rocuronium [place] (Zemuron) 50 mg STK-MED ONCE .ROUTE ; Start 11/10/18 at 10:36 ; Stop 11/10/18 at 10:37; Status DC Sevoflurane (Ultane) 90 ml STK-MED ONCE IH ; Start 11/10/18 at 11:52; Stop at 11:53; Status DC Amlodipine Besylate (Norvasc) 5 mg DAILY PO Last administered on 11/12/18at 09:32 ; Start 11/11/18 at 09:00; Stop 11/12/18 at 22:56; Status DC Metformin HCl (Glucophage) 500 mg BIDWMEALS PO Last administered on 11/12/18at 09 :32; Start 11/10/18 at 17:00; Stop 11/12/18 at 16:01; Status DC Pantoprazole Sodium (Protonix) 40 mg DAILYAC PO ; Start 11/11/18 at 07:30; Stop 11/11/18 at 07:30; Status DC Al Hydroxide/Mg Hydroxide (Mylanta Plus Xs) 30 ml PRN Q3HRS PRN PO HEARTBURN / GAS; Start 11/10/18 at 12:00 Diphenhydramine HCl (Benadryl) 25 mg PRN Q6HRS PRN PO ITCHING; Start 11/10/18 at 12:00 Enoxaparin Sodium (Lovenox 40mg Syringe) 40 mg Q24H SQ Last administered on 11/16at 08:36; Start 11/11/18 at 09:00 Sodium Chloride (Normal Saline Flush) 3 ml QSHIFT PRN IV AFTER MEDS AND BLOOD DRAWS; Start 11/10/18 at 12:00 Potassium Chloride/Sodium Chloride 1,000 ml @ 60 mls/hr [id number] IV Last administered on 11/12/18 03:59; Start 11/10/18 at 15:00; Stop 11/12/18 at 14:59; Status DC Hydromorphone HCl (Dilaudid) 0.5 mg PRN Q4HRS PRN IV PAIN, SEE COMMENTS Last administered on 11/10/18at 20:12; Start 11/10/18 at 12:00; Stop 11/11/18 at 10:31; Status DC Ondansetron HCl (Zofran) 4 mg PRN Q6HRS PRN IV NAUESA, 1ST CHOICE Last administered on 11/14/18 08:30; Start 11/10/18 at 12:00 Insulin Human Lispro (HumaLOG) 0-6 UNITS 300-39... TIDWMEALS SQ ; Start 11/10/18 at 17:00; Stop 11/11/18 at 10:35; Status DC Pantoprazole Sodium (PROTONIX VIAL for IV PUSH) 40 mg DAILYAC IVP Last administered on 11/12/18at 05:20; Start 11/11/18 at 07:30; Stop 11/12/18 at 10:30; Status DC Throat Lozenges (Chloraseptic) 1 spray PRN Q2HR PRN PO SORE THROAT, 2ND CHOICE ; Start 11/10/18 at 18:30 Throat Lozenges (Cepacol Sore Throat Lozenge) 1 taiwo PRN Q2HRS PRN PO SORE THROAT, 1ST CHOICE Last administered on 11/13/18at 11:46; Start 11/10/18 at 18:30 Hydromorphone HCl (Dilaudid) 0.5 mg PRN Q3HRS PRN IV MODERATE PAIN; Start at 22:30; Stop 11/11/18 at 12:22; Status DC Hydromorphone HCl (Dilaudid) 1 mg PRN Q3HRS PRN IV SEVERE PAIN Last administered on 11/11/18 11:21; Start 11/10/18 at 22:30; Stop 11/11/18 at 12:22; Status DC Insulin Human Lispro (HumaLOG) 0-6 UNITS BG 300-39... TIDWMEALS SQ ; Start at 12:00 Metronidazole (FLAGYL 500Mmg PREMIX) 500 mg STK-MED ONCE IV ; Start 11/10/18 at 09:00; Stop 11/11/18 at 11:24; Status DC Acetaminophen/ Hydrocodone Bitart (Lortab 5/325) 1 tab PRN Q4HRS PRN PO MODERATE TO SEVERE PAIN Last administered on 11/15/18 20:54; Start 11/11/18 at 12 :30 Morphine Sulfate (Morphine Sulfate) 1 mg PRN Q1HR PRN IV PAIN Last administered on 11/11/18 23:29; Start 11/11/18 at 20:00; Stop 11/12/18 at 10:30; Status DC Ferrous Sulfate (Feosol) 325 mg BID PO Last administered on 11/16/18 08:37; Start 11/12/18 at 12:00 Acetaminophen (Tylenol) 650 mg PRN Q6HRS PRN PO MILD PAIN / TEMP Last administered on 11/16/18 06:11; Start 11/12/18 at 10:30 Potassium Chloride/Sodium Chloride 1,000 ml @ 60 mls/hr [id number] IV Last administered on 11/16/18 06:16; Start 11/12/18 at 17:00 Promethazine HCl (Phenergan Supp) 25 mg PRN Q6HRS PRN [place] NAUSEA/VOMITING Last administered on 11/12/18 21:38; Start 11/12/18 at 19:45 Amlodipine Besylate (Norvasc) 10 mg DAILY PO Last administered on 11/16/18 08: 37; Start 11/13/18 at 09:00 Hydralazine HCl (Apresoline) 25 mg PRN Q6HRS PRN PO HYPERTENSION Last administered on 11/13/18 10:44; Start 11/12/18 at 23:00 Active Scripts Active Reported Omeprazole 20 Mg Capsule.dr 1 Cap PO DAILY Ferrous Sulfate 325 Mg Tablet 1 Tab PO BID Amlodipine Besylate 5 Mg Tablet 5 Mg PO DAILY Metformin Hcl 500 Mg Tablet 500 Mg PO BID Vitals/I & O Vital Sign - Last 24 Hours 11/15/18 11/15/18 11/15/18 11/15/18 11:00 11:38 15:00 19:00 Temp 97.5 98.0 98.5 97.5 98.0 98.5 Pulse 77 72 91 73 Resp 18 18 18 B/P (MAP) 155/59 (91) 142/56 136/54 (81) 138/59 (85) Pulse Ox 99 99 98 O2 Delivery Room Air Room Air Room Air 11/15/18 11/15/18 11/15/18 11/15/18 20:30 20:54 22:22 23:00 Temp 98.1 98.1 Pulse 70 Resp 16 16 18 B/P (MAP) 141/60 (87) Pulse Ox 98 O2 Delivery Room Air Room Air Room Air Room Air 11/16/18 11/16/18 11/16/18 03:00 07:00 08:37 Temp 98.2 97.8 98.2 97.8 Pulse 73 70 70 Resp 18 16 B/P (MAP) 138/62 (87) 131/63 (85) 131/63 Pulse Ox 96 99 O2 Delivery Room Air Room Air Intake and Output 11/15/18 11/15/18 11/16/18 15:00 23:00 07:00 Intake Total 480 ml 1360 ml Output Total 1 ml 0 ml 200 ml Balance 479 ml 1360 ml -200 ml DARVIN MCCALLUM MD Nov 16, 2018 09:56
[2018-11-16 11:00] VITALS: BP 142/64
--- NOTE | 2018-11-16 14:56 | PDOC ---
PULMONARY PROGRESS NOTES Subjective no soa, no cough, slight abd pain Vitals Vital Signs Date Time Temp Pulse Resp B/P (MAP) Pulse Ox O2 Delivery O2 Flow Rate FiO2 11/16/18 11:00 97.9 82 16 142/64 (90) 100 Room Air 97.9 11/16/18 08:00 2.0 ROS: No Chest Pain General: Alert, No acute distress HEENT: Other (nc at perrl) Lungs: Crackles (bases) Cardiovascular: S1 Abdomen: Soft, Non-tender Neuro Exam: Alert Extremities: No Edema Skin: Warm Labs Laboratory Tests Test 11/14/18 16:40 11/14/18 21:01 11/15/18 07:16 11/15/18 11:30 Glucose (Fingerstick) 84 mg/dL (70-99) 72 mg/dL (70-99) 71 mg/dL (70-99) 71 mg/dL (70-99) Test 11/15/18 16:52 11/15/18 20:48 11/16/18 04:30 11/16/18 04:35 Glucose (Fingerstick) 75 mg/dL (70-99) 79 mg/dL (70-99) White Blood Count 6.2 x10^3/uL (4.0-11.0) Red Blood Count 3.05 x10^6/uL (3.50-5.40) Hemoglobin 7.7 g/dL (12.0-15.5) Hematocrit 24.3 % (36.0-47.0) Mean Corpuscular Volume 80 fL (79-100) Mean Corpuscular Hemoglobin 25 pg (25-35) Mean Corpuscular Hemoglobin Concent 32 g/dL (31-37) Red Cell Distribution Width 20.0 % (11.5-14.5) Platelet Count 334 x10^3/uL (140-400) Neutrophils (%) (Auto) 56 % (31-73) Lymphocytes (%) (Auto) 30 % (24-48) Monocytes (%) (Auto) 12 % (0-9) Eosinophils (%) (Auto) 1 % (0-3) Basophils (%) (Auto) 1 % (0-3) Neutrophils # (Auto) 3.5 x10^3uL (1.8-7.7) Lymphocytes # (Auto) 1.9 x10^3/uL (1.0-4.8) Monocytes # (Auto) 0.7 x10^3/uL (0.0-1.1) Eosinophils # (Auto) 0.1 x10^3/uL (0.0-0.7) Basophils # (Auto) 0.0 x10^3/uL (0.0-0.2) Sodium Level 138 mmol/L (136-145) Potassium Level 3.7 mmol/L (3.5-5.1) Chloride Level 103 mmol/L (98-107) Carbon Dioxide Level 26 mmol/L (21-32) Anion Gap 9 (6-14) Blood Urea Nitrogen 4 mg/dL (7-20) Creatinine 0.7 mg/dL (0.6-1.0) Estimated GFR (Cockcroft-Gault) 96.5 Glucose Level 76 mg/dL (70-99) Calcium Level 8.5 mg/dL (8.5-10.1) Test 11/16/18 06:14 11/16/18 07:24 11/16/18 11:47 Glucose (Fingerstick) 76 mg/dL (70-99) 78 mg/dL (70-99) 90 mg/dL (70-99) Laboratory Tests Test 11/15/18 16:52 11/15/18 20:48 11/16/18 04:30 11/16/18 04:35 Glucose (Fingerstick) 75 mg/dL (70-99) 79 mg/dL (70-99) White Blood Count 6.2 x10^3/uL (4.0-11.0) Red Blood Count 3.05 x10^6/uL (3.50-5.40) Hemoglobin 7.7 g/dL (12.0-15.5) Hematocrit 24.3 % (36.0-47.0) Mean Corpuscular Volume 80 fL (79-100) Mean Corpuscular Hemoglobin 25 pg (25-35) Mean Corpuscular Hemoglobin Concent 32 g/dL (31-37) Red Cell Distribution Width 20.0 % (11.5-14.5) Platelet Count 334 x10^3/uL (140-400) Neutrophils (%) (Auto) 56 % (31-73) Lymphocytes (%) (Auto) 30 % (24-48) Monocytes (%) (Auto) 12 % (0-9) Eosinophils (%) (Auto) 1 % (0-3) Basophils (%) (Auto) 1 % (0-3) Neutrophils # (Auto) 3.5 x10^3uL (1.8-7.7) Lymphocytes # (Auto) 1.9 x10^3/uL (1.0-4.8) Monocytes # (Auto) 0.7 x10^3/uL (0.0-1.1) Eosinophils # (Auto) 0.1 x10^3/uL (0.0-0.7) Basophils # (Auto) 0.0 x10^3/uL (0.0-0.2) Sodium Level 138 mmol/L (136-145) Potassium Level 3.7 mmol/L (3.5-5.1) Chloride Level 103 mmol/L (98-107) Carbon Dioxide Level 26 mmol/L (21-32) Anion Gap 9 (6-14) Blood Urea Nitrogen 4 mg/dL (7-20) Creatinine 0.7 mg/dL (0.6-1.0) Estimated GFR (Cockcroft-Gault) 96.5 Glucose Level 76 mg/dL (70-99) Calcium Level 8.5 mg/dL (8.5-10.1) Test 11/16/18 06:14 11/16/18 07:24 11/16/18 11:47 Glucose (Fingerstick) 76 mg/dL (70-99) 78 mg/dL (70-99) 90 mg/dL (70-99) Medications Active Scripts Medications Dose Route/Sig Max Daily Dose Days Date Category Omeprazole 20 Mg Capsule.dr 1 Cap PO DAILY 10/24/18 Reported Ferrous Sulfate 325 Mg Tablet 1 Tab PO BID 10/24/18 Reported Amlodipine Besylate 5 Mg Tablet 5 Mg PO DAILY 10/24/18 Reported Metformin Hcl 500 Mg Tablet 500 Mg PO BID 11/12/13 Reported Impression . 1. Abnormal chest x-ray now and abnormal CT chest from last year, highly suspicious for early idiopathic pulmonary fibrosis. She has crackles at 1/3 at the bases and the CT chest findings with peripheral fibrotic changes with increased fibrotic changes at the bases are highly consistent with idiopathic pulmonary fibrosis. 2. Recently diagnosed adenocarcinoma of the colon, status post laparoscopic right colon resection. 3. History of deep venous thrombosis, left lower extremity, status post inferior vena cava filter, not an optimum candidate for long-term anticoagulation. 4. No significant tobacco history. Plan . 1. At this point keeping in view of her advanced age bx is not recommended. Conservative follow up on her fibrosis would be reasonable, repeat a CAT scan as an outpatient sometimes this year to make a year comparison 2. 6-minute walk test at the time of discharge. 3. Follow General Surgery recommendations. 4. DVT prophylaxis with Lovenox. She already has an IVC filter. 5. PRN bronchodilators. IS, the importance of use discussed 6. Discussed with pt CHRISTOPHER GROVES MD Nov 16, 2018 14:56
[2018-11-16 15:00] VITALS: BP 130/63
[2018-11-16 19:00] VITALS: BP 133/57
[2018-11-16 23:00] VITALS: BP 132/60
[2018-11-17 03:00] VITALS: BP 114/45
[2018-11-17 07:00] VITALS: BP 131/62
[2018-11-17] MEDS: INSULIN LISPRO 300 UNITS/3 ML INSULN.PEN. SQ SCH ×3 (08:00→17:00)
[2018-11-17] MEDS: ENOXAPARIN 40 MG/0.4 ML SYRINGE. SQ SCH (09:28)
[2018-11-17] MEDS: amLODIPine BESYLATE 5 MG TABLET PO SCH (09:28)
[2018-11-17] MEDS: FERROUS SULFATE 325 MG TABLET. PO SCH (09:28)
--- NOTE | 2018-11-17 09:45 | NUR ---
SW following for discharge planning. Discussed with RN, pt having a 6 minute walk today, could possibly discharge home today with [facility] health. SW faxed referral [facility]. Awaiting discharge confirmation and paperwork for home health with PT/OT/ RN. SW will continue to follow.
--- NOTE | 2018-11-17 10:00 | PDOC ---
PROGRESS NOTES Subjective Subjective feels well. eating well. she had a BM. comfortable. bp okay. Objective Objective Vital Signs Date Time Temp Pulse Resp B/P (MAP) Pulse Ox O2 Delivery O2 Flow Rate FiO2 11/17/18 09:28 67 131/62 11/17/18 07:00 98.3 18 97 Room Air 98.3 11/16/18 08:00 2.0 Intake and Output 11/17/18 06:59 Intake Total 120 ml Balance 120 ml Intake Oral 120 ml # Voids 2 Physical Exam Abdomen: Soft, No tenderness Heart: Regular rate, Normal S1, Normal S2 Extremities: No edema General: Alert HEENT: Atraumatic Lungs: Clear to auscultation Neuro: Normal speech Psych/Mental Status: Mental status NL Skin: No breakdown Assessment Assessment laparoscopic assisted right colon resection for hepatic flexure adenocarcinoma of colon acute blood loss anemia leukocytosis resolved diabetes mellitus type 2 hypertension history of recent IVC filter for LLE DVT ileus resolved suspected pulmonary fibrosis. Plan Plan of Care okay for dismissal from my standpoint script on chart office visit with dr. mccallum next week Comment Review of Relevant I have reviewed the following items nuria (where applicable) has been applied. Labs Laboratory Tests Test 11/15/18 11:30 11/15/18 16:52 11/15/18 20:48 11/16/18 04:30 Glucose (Fingerstick) 71 mg/dL (70-99) 75 mg/dL (70-99) 79 mg/dL (70-99) White Blood Count 6.2 x10^3/uL (4.0-11.0) Red Blood Count 3.05 x10^6/uL (3.50-5.40) Hemoglobin 7.7 g/dL (12.0-15.5) Hematocrit 24.3 % (36.0-47.0) Mean Corpuscular Volume 80 fL (79-100) Mean Corpuscular Hemoglobin 25 pg (25-35) Mean Corpuscular Hemoglobin Concent 32 g/dL (31-37) Red Cell Distribution Width 20.0 % (11.5-14.5) Platelet Count 334 x10^3/uL (140-400) Neutrophils (%) (Auto) 56 % (31-73) Lymphocytes (%) (Auto) 30 % (24-48) Monocytes (%) (Auto) 12 % (0-9) Eosinophils (%) (Auto) 1 % (0-3) Basophils (%) (Auto) 1 % (0-3) Neutrophils # (Auto) 3.5 x10^3uL (1.8-7.7) Lymphocytes # (Auto) 1.9 x10^3/uL (1.0-4.8) Monocytes # (Auto) 0.7 x10^3/uL (0.0-1.1) Eosinophils # (Auto) 0.1 x10^3/uL (0.0-0.7) Basophils # (Auto) 0.0 x10^3/uL (0.0-0.2) Test 11/16/18 04:35 11/16/18 06:14 11/16/18 07:24 11/16/18 11:47 Sodium Level 138 mmol/L (136-145) Potassium Level 3.7 mmol/L (3.5-5.1) Chloride Level 103 mmol/L (98-107) Carbon Dioxide Level 26 mmol/L (21-32) Anion Gap 9 (6-14) Blood Urea Nitrogen 4 mg/dL (7-20) Creatinine 0.7 mg/dL (0.6-1.0) Estimated GFR (Cockcroft-Gault) 96.5 Glucose Level 76 mg/dL (70-99) Calcium Level 8.5 mg/dL (8.5-10.1) Glucose (Fingerstick) 76 mg/dL (70-99) 78 mg/dL (70-99) 90 mg/dL (70-99) Test 11/16/18 16:55 11/16/18 20:56 11/17/18 07:33 Glucose (Fingerstick) 100 mg/dL (70-99) 129 mg/dL (70-99) 93 mg/dL (70-99) Laboratory Tests Test 11/16/18 11:47 11/16/18 16:55 11/16/18 20:56 11/17/18 07:33 Glucose (Fingerstick) 90 mg/dL (70-99) 100 mg/dL (70-99) 129 mg/dL (70-99) 93 mg/dL (70-99) Microbiology 11/11/18 Urine Culture - Final, Complete 4/2/19 Urine Culture Result 1 (NICO) - Final, Complete Medications Current Medications Ondansetron HCl (Zofran) 4 mg PRN Q6HRS PRN IV NAUSEA/VOMITING Last administered on 11/10/18at 13:39; Start 11/10/18 at 07:00; Stop 11/11/18 at 06:59; Status DC Fentanyl Citrate (Fentanyl 2ml Vial) 25 mcg PRN Q5MIN PRN IV MILD PAIN; Start 11/10/18 at 07:00; Stop 11/11/18 at 06:59; Status DC Fentanyl Citrate (Fentanyl 2ml Vial) 50 mcg PRN Q5MIN PRN IV MODERATE TO SEVERE PAIN Last administered on 11/10/18at 13:42; Start 11/10/18 at 07:00; Stop at 06:59; Status DC Morphine Sulfate (Morphine Sulfate) 1 mg PRN Q10MIN PRN IV SEVERE PAIN Last administered on 11/10/18at 14:32; Start 11/10/18 at 07:00; Stop 11/11/18 at 06:59; Status DC Ringer's Solution 1,000 ml @ 30 mls/hr Q24H IV Last administered on 11/10/18at 14:31; Start 11/10/18 at 07:00; Stop 11/10/18 at 18:59; Status DC Lidocaine HCl (Xylocaine-Mpf 1% 2ml Vial) 2 ml PRN 1X PRN ID PRIOR TO IV START ; Start 11/10/18 at 07:00; Stop 11/11/18 at 06:59; Status DC Hydromorphone HCl (Dilaudid) 0.5 mg PRN Q10MIN PRN IV SEV PAIN, Second choice; Start 11/10/18 at 07:00; Stop 11/11/18 at 06:59; Status DC Prochlorperazine Edisylate (Compazine) 5 mg PACU PRN PRN IV NAUSEA, MRX1 Last administered on 11/10/18at 13:22; Start 11/10/18 at 07:00; Stop 11/11/18 at 06:59; Status DC Cefazolin Sodium/ Dextrose 50 ml @ 100 mls/hr 1X PREOP PRN IV PRIOR TO PROCEDURE; Start 11/10/18 at 06:00; Stop 11/10/18 at 18:00; Status DC Metronidazole 100 ml @ 100 mls/hr 1X PREOP PRN IV PRIOR TO PROCEDURE; Start at 06:00; Stop 11/10/18 at 18:00; Status DC Bupivacaine HCl/ Epinephrine Bitart (Sensorcain-Mpf Epi 0.5%-[id number]) 30 ml STK -MED ONCE .ROUTE Last administered on 11/10/18at 10:00; Start 11/10/18 at 08:21; Stop 11/10/18 at 09:21; Status DC Rocuronium [place] (Zemuron) 50 mg STK-MED ONCE .ROUTE ; Start 11/10/18 at 09:31 ; Stop 11/10/18 at 09:32; Status DC Desflurane (Suprane) 60 ml STK-MED ONCE IH ; Start 11/10/18 at 10:08; Stop at 10:09; Status DC Propofol 20 ml @ As Directed STK-MED ONCE IV ; Start 11/10/18 at 10:08; Stop 11/10 at 10:09; Status DC Lidocaine HCl (Lidocaine Pf 2% Vial) 5 ml STK-MED ONCE .ROUTE ; Start 11/10/18 at 10:08; Stop 11/10/18 at 10:09; Status DC Dexamethasone Sodium Phosphate (Decadron) 20 mg STK-MED ONCE .ROUTE ; Start 11/10 at 10:09; Stop 11/10/18 at 10:10; Status DC Ondansetron HCl (Zofran) 4 mg STK-MED ONCE .ROUTE ; Start 11/10/18 at 10:09; Stop 11/10/18 at 10:10; Status DC Neostigmine Methylsulfate (Neostigmine Methylsulfate) 5 mg STK-MED ONCE .ROUTE ; Start 11/10/18 at 10:09; Stop 11/10/18 at 10:10; Status DC Glycopyrrolate (Robinul) 1 mg STK-MED ONCE .ROUTE ; Start 11/10/18 at 10:09; Stop 11/10/18 at 10:10; Status DC Fentanyl Citrate (Fentanyl 2ml Vial) 100 mcg STK-MED ONCE .ROUTE ; Start at 10:10; Stop 11/10/18 at 10:11; Status DC Phenylephrine HCl (PHENYLEPHRINE in 0.9% NACL PF) 1 mg STK-MED ONCE IV ; Start 11/10/18 at 10:23; Stop 11/10/18 at 10:24; Status DC Albuterol Sulfate (Ventolin Hfa) 1 puff 1X ONCE INH ; Start 11/10/18 at 10:45; Stop 11/10/18 at 10:46; Status DC Rocuronium [place] (Zemuron) 50 mg STK-MED ONCE .ROUTE ; Start 11/10/18 at 10:36 ; Stop 11/10/18 at 10:37; Status DC Sevoflurane (Ultane) 90 ml STK-MED ONCE IH ; Start 11/10/18 at 11:52; Stop at 11:53; Status DC Amlodipine Besylate (Norvasc) 5 mg DAILY PO Last administered on 11/12/18at 09:32 ; Start 11/11/18 at 09:00; Stop 11/12/18 at 22:56; Status DC Metformin HCl (Glucophage) 500 mg BIDWMEALS PO Last administered on 11/12/18at 09 :32; Start 11/10/18 at 17:00; Stop 11/12/18 at 16:01; Status DC Pantoprazole Sodium (Protonix) 40 mg DAILYAC PO ; Start 11/11/18 at 07:30; Stop 11/11/18 at 07:30; Status DC Al Hydroxide/Mg Hydroxide (Mylanta Plus Xs) 30 ml PRN Q3HRS PRN PO HEARTBURN / GAS; Start 11/10/18 at 12:00 Diphenhydramine HCl (Benadryl) 25 mg PRN Q6HRS PRN PO ITCHING; Start 11/10/18 at 12:00 Enoxaparin Sodium (Lovenox 40mg Syringe) 40 mg Q24H SQ Last administered on 11/17at 09:28; Start 11/11/18 at 09:00 Sodium Chloride (Normal Saline Flush) 3 ml QSHIFT PRN IV AFTER MEDS AND BLOOD DRAWS; Start 11/10/18 at 12:00 Potassium Chloride/Sodium Chloride 1,000 ml @ 60 mls/hr [id number] IV Last administered on 11/12/18at 03:59; Start 11/10/18 at 15:00; Stop 11/12/18 at 14:59; Status DC Hydromorphone HCl (Dilaudid) 0.5 mg PRN Q4HRS PRN IV PAIN, SEE COMMENTS Last administered on 11/10/18at 20:12; Start 11/10/18 at 12:00; Stop 11/11/18 at 10:31; Status DC Ondansetron HCl (Zofran) 4 mg PRN Q6HRS PRN IV NAUESA, 1ST CHOICE Last administered on 11/14/18at 08:30; Start 11/10/18 at 12:00 Insulin Human Lispro (HumaLOG) 0-6 UNITS 300-39... TIDWMEALS SQ ; Start 11/10/18 at 17:00; Stop 11/11/18 at 10:35; Status DC Pantoprazole Sodium (PROTONIX VIAL for IV PUSH) 40 mg DAILYAC IVP Last administered on 11/12/18at 05:20; Start 11/11/18 at 07:30; Stop 11/12/18 at 10:30; Status DC Throat Lozenges (Chloraseptic) 1 spray PRN Q2HR PRN PO SORE THROAT, 2ND CHOICE ; Start 11/10/18 at 18:30 Throat Lozenges (Cepacol Sore Throat Lozenge) 1 taiwo PRN Q2HRS PRN PO SORE THROAT, 1ST CHOICE Last administered on 11/13/18at 11:46; Start 11/10/18 at 18:30 Hydromorphone HCl (Dilaudid) 0.5 mg PRN Q3HRS PRN IV MODERATE PAIN; Start at 22:30; Stop 11/11/18 at 12:22; Status DC Hydromorphone HCl (Dilaudid) 1 mg PRN Q3HRS PRN IV SEVERE PAIN Last administered on 11/11/18at 11:21; Start 11/10/18 at 22:30; Stop 11/11/18 at 12:22; Status DC Insulin Human Lispro (HumaLOG) 0-6 UNITS BG 300-39... TIDWMEALS SQ ; Start at 12:00 Metronidazole (FLAGYL 500Mmg PREMIX) 500 mg STK-MED ONCE IV ; Start 11/10/18 at 09:00; Stop 11/11/18 at 11:24; Status DC Acetaminophen/ Hydrocodone Bitart (Lortab 5/325) 1 tab PRN Q4HRS PRN PO MODERATE TO SEVERE PAIN Last administered on 11/15/18 20:54; Start 11/11/18 at 12 :30 Morphine Sulfate (Morphine Sulfate) 1 mg PRN Q1HR PRN IV PAIN Last administered on 11/11/18 23:29; Start 11/11/18 at 20:00; Stop 11/12/18 at 10:30; Status DC Ferrous Sulfate (Feosol) 325 mg BID PO Last administered on 11/17/18 09:28; Start 11/12/18 at 12:00 Acetaminophen (Tylenol) 650 mg PRN Q6HRS PRN PO MILD PAIN / TEMP Last administered on 11/16/18 06:11; Start 11/12/18 at 10:30 Potassium Chloride/Sodium Chloride 1,000 ml @ 40 mls/hr Q24H IV Last administered on 11/16/18 06:16; Start 11/12/18 at 17:00; Stop 11/16/18 at 17:50; Status DC Promethazine HCl (Phenergan Supp) 25 mg PRN Q6HRS PRN [place] NAUSEA/VOMITING Last administered on 11/12/18 21:38; Start 11/12/18 at 19:45 Amlodipine Besylate (Norvasc) 10 mg DAILY PO Last administered on 11/17/18 09: 28; Start 11/13/18 at 09:00 Hydralazine HCl (Apresoline) 25 mg PRN Q6HRS PRN PO HYPERTENSION Last administered on 11/13/18 10:44; Start 11/12/18 at 23:00 Active Scripts Active Reported Omeprazole 20 Mg Capsule. 1 Cap PO DAILY Ferrous Sulfate 325 Mg Tablet 1 Tab PO BID Amlodipine Besylate 5 Mg Tablet 5 Mg PO DAILY Metformin Hcl 500 Mg Tablet 500 Mg PO BID Vitals/I & O Vital Sign - Last 24 Hours 11/16/18 11/16/18 11/16/18 11/16/18 11:00 15:00 19:00 20:15 Temp 97.9 98.1 97.9 98.1 Pulse 82 76 78 Resp 16 16 16 B/P (MAP) 142/64 (90) 130/63 (85) 133/57 (82) Pulse Ox 100 99 97 O2 Delivery Room Air Room Air Room Air Room Air 11/16/18 11/17/18 11/17/18 11/17/18 23:00 03:00 07:00 09:28 Temp 98.6 97.9 98.3 98.6 97.9 98.3 Pulse 79 64 67 67 Resp 16 16 18 B/P (MAP) 132/60 (84) 114/45 (68) 131/62 (85) 131/62 Pulse Ox 99 97 97 O2 Delivery Room Air Room Air Room Air Intake and Output 11/16/18 11/16/18 11/17/18 14:59 22:59 06:59 Intake Total 120 ml Balance 120 ml DARVIN MCCALLUM MD Nov 17, 2018 10:00
--- NOTE | 2018-11-17 10:18 | RAD ---
PQRS Compliance Statement: One or more of the following individualized dose reduction techniques were utilized for this examination: 1. Automated exposure control 2. Adjustment of the mA and/or kV according to patient size 3. Use of iterative reconstruction technique CT chest without contrast 11/17/2018 INDICATION: Colon cancer staging COMPARISON: CT chest December 14, 2017 TECHNIQUE: Multiple axial CT images of the chest were obtained without intravenous contrast. Coronal and sagittal reformats are provided. FINDINGS: The thyroid gland is normal in appearance. There are calcified mediastinal and right hilar lymph nodes. No suspicious pathologically enlarged axillary, mediastinal or hilar lymph nodes are identified within the limitations of a noncontrast examination. Heart size is enlarged. There is no pericardial effusion. Thoracic aorta is normal in course and caliber with mild calcified atheromatous plaque. There is a small hiatal hernia. Subpleural reticular interstitial changes are identified with lower lung zone predominance. Thin-walled cystic changes are identified in the subpleural right lower lobe which may represent early honeycombing. There is traction bronchiectasis in the bilateral lower lobes. There is a 2 mm solid noncalcified pulmonary nodule in the left lower lobe superior segment, stable from December 14, 2017. No new or enlarging solid noncalcified nodules are identified. There are no pleural effusions. No pulmonary vascular congestion or pneumothorax. Evaluation of the solid abdominal viscera is limited by lack of intravenous contrast. Small volume free fluid is identified in the upper quadrants. Spleen is not enlarged. No definite suspicious hepatic mass is visualized. There is mild atrophy of the pancreas. No definite adrenal nodules are visualized. No suspicious osseous abnormality is identified. There is levoconvex scoliosis of the thoracic spine with apex levocurvature at T4-T5. IMPRESSION: 1. No evidence for metastatic disease involving the chest. 2. Previously seen segment II hepatic lesion is not visualized on the current examination, likely secondary to the limitations of a noncontrast examination. 3. Interstitial changes are identified within the chest with lower lung zone predominance. There is associated bronchiectasis and early honeycombing at the right lung base. Findings most favor interstitial lung disease as may be seen with usual interstitial pneumonitis. Electronically signed by: Josephine Alejandro MD (11/17/2018 10:15 AM) [id number]
[2018-11-17 11:00] VITALS: BP 128/65
--- NOTE | 2018-11-17 11:29 | PDOC ---
SURGICAL PROGRESS NOTE Subjective tolerating diet pain minimal + stool Vital Signs Vital Signs Date Time Temp Pulse Resp B/P (MAP) Pulse Ox O2 Delivery O2 Flow Rate FiO2 11/17/18 09:28 67 131/62 11/17/18 07:00 98.3 18 97 Room Air 98.3 11/16/18 08:00 2.0 I&O Intake and Output 11/17/18 07:00 Intake Total 120 ml Balance 120 ml Intake Oral 120 ml # Voids 2 General: Alert, Oriented X3, Cooperative, No acute distress Abdomen: Soft, No tenderness Labs Laboratory Tests Test 11/15/18 11:30 11/15/18 16:52 11/15/18 20:48 11/16/18 04:30 Glucose (Fingerstick) 71 mg/dL (70-99) 75 mg/dL (70-99) 79 mg/dL (70-99) White Blood Count 6.2 x10^3/uL (4.0-11.0) Red Blood Count 3.05 x10^6/uL (3.50-5.40) Hemoglobin 7.7 g/dL (12.0-15.5) Hematocrit 24.3 % (36.0-47.0) Mean Corpuscular Volume 80 fL (79-100) Mean Corpuscular Hemoglobin 25 pg (25-35) Mean Corpuscular Hemoglobin Concent 32 g/dL (31-37) Red Cell Distribution Width 20.0 % (11.5-14.5) Platelet Count 334 x10^3/uL (140-400) Neutrophils (%) (Auto) 56 % (31-73) Lymphocytes (%) (Auto) 30 % (24-48) Monocytes (%) (Auto) 12 % (0-9) Eosinophils (%) (Auto) 1 % (0-3) Basophils (%) (Auto) 1 % (0-3) Neutrophils # (Auto) 3.5 x10^3uL (1.8-7.7) Lymphocytes # (Auto) 1.9 x10^3/uL (1.0-4.8) Monocytes # (Auto) 0.7 x10^3/uL (0.0-1.1) Eosinophils # (Auto) 0.1 x10^3/uL (0.0-0.7) Basophils # (Auto) 0.0 x10^3/uL (0.0-0.2) Test 11/16/18 04:35 11/16/18 06:14 11/16/18 07:24 11/16/18 11:47 Sodium Level 138 mmol/L (136-145) Potassium Level 3.7 mmol/L (3.5-5.1) Chloride Level 103 mmol/L (98-107) Carbon Dioxide Level 26 mmol/L (21-32) Anion Gap 9 (6-14) Blood Urea Nitrogen 4 mg/dL (7-20) Creatinine 0.7 mg/dL (0.6-1.0) Estimated GFR (Cockcroft-Gault) 96.5 Glucose Level 76 mg/dL (70-99) Calcium Level 8.5 mg/dL (8.5-10.1) Glucose (Fingerstick) 76 mg/dL (70-99) 78 mg/dL (70-99) 90 mg/dL (70-99) Test 11/16/18 16:55 11/16/18 20:56 11/17/18 07:33 Glucose (Fingerstick) 100 mg/dL (70-99) 129 mg/dL (70-99) 93 mg/dL (70-99) Laboratory Tests Test 11/16/18 11:47 11/16/18 16:55 11/16/18 20:56 11/17/18 07:33 Glucose (Fingerstick) 90 mg/dL (70-99) 100 mg/dL (70-99) 129 mg/dL (70-99) 93 mg/dL (70-99) Assessment/Plan probable dc today YUNIOR ENGLISH ARBORER Nov 17, 2018 11:29
--- NOTE | 2018-11-17 14:02 | PDOC ---
PULMONARY PROGRESS NOTES Subjective no soa, no cough, slight abd pain Vitals Vital Signs Date Time Temp Pulse Resp B/P (MAP) Pulse Ox O2 Delivery O2 Flow Rate FiO2 11/17/18 09:28 67 131/62 11/17/18 07:50 Room Air 2.0 11/17/18 07:00 98.3 18 97 98.3 ROS: No Chest Pain General: Alert, No acute distress HEENT: Other (nc at perrl) Lungs: Crackles (bases) Cardiovascular: S1 Abdomen: Soft, Non-tender Neuro Exam: Alert Extremities: No Edema Skin: Warm Labs Laboratory Tests Test 11/15/18 16:52 11/15/18 20:48 11/16/18 04:30 11/16/18 04:35 Glucose (Fingerstick) 75 mg/dL (70-99) 79 mg/dL (70-99) White Blood Count 6.2 x10^3/uL (4.0-11.0) Red Blood Count 3.05 x10^6/uL (3.50-5.40) Hemoglobin 7.7 g/dL (12.0-15.5) Hematocrit 24.3 % (36.0-47.0) Mean Corpuscular Volume 80 fL (79-100) Mean Corpuscular Hemoglobin 25 pg (25-35) Mean Corpuscular Hemoglobin Concent 32 g/dL (31-37) Red Cell Distribution Width 20.0 % (11.5-14.5) Platelet Count 334 x10^3/uL (140-400) Neutrophils (%) (Auto) 56 % (31-73) Lymphocytes (%) (Auto) 30 % (24-48) Monocytes (%) (Auto) 12 % (0-9) Eosinophils (%) (Auto) 1 % (0-3) Basophils (%) (Auto) 1 % (0-3) Neutrophils # (Auto) 3.5 x10^3uL (1.8-7.7) Lymphocytes # (Auto) 1.9 x10^3/uL (1.0-4.8) Monocytes # (Auto) 0.7 x10^3/uL (0.0-1.1) Eosinophils # (Auto) 0.1 x10^3/uL (0.0-0.7) Basophils # (Auto) 0.0 x10^3/uL (0.0-0.2) Sodium Level 138 mmol/L (136-145) Potassium Level 3.7 mmol/L (3.5-5.1) Chloride Level 103 mmol/L (98-107) Carbon Dioxide Level 26 mmol/L (21-32) Anion Gap 9 (6-14) Blood Urea Nitrogen 4 mg/dL (7-20) Creatinine 0.7 mg/dL (0.6-1.0) Estimated GFR (Cockcroft-Gault) 96.5 Glucose Level 76 mg/dL (70-99) Calcium Level 8.5 mg/dL (8.5-10.1) Test 11/16/18 06:14 11/16/18 07:24 11/16/18 11:47 11/16/18 16:55 Glucose (Fingerstick) 76 mg/dL (70-99) 78 mg/dL (70-99) 90 mg/dL (70-99) 100 mg/dL (70-99) Test 11/16/18 20:56 11/17/18 07:33 11/17/18 11:59 Glucose (Fingerstick) 129 mg/dL (70-99) 93 mg/dL (70-99) 112 mg/dL (70-99) Laboratory Tests Test 11/16/18 16:55 11/16/18 20:56 11/17/18 07:33 11/17/18 11:59 Glucose (Fingerstick) 100 mg/dL (70-99) 129 mg/dL (70-99) 93 mg/dL (70-99) 112 mg/dL (70-99) Medications Active Scripts Medications Dose Route/Sig Max Daily Dose Days Date Category Omeprazole 20 Mg Capsule.dr 1 Cap PO DAILY 10/24/18 Reported Ferrous Sulfate 325 Mg Tablet 1 Tab PO BID 10/24/18 Reported Amlodipine Besylate 5 Mg Tablet 5 Mg PO DAILY 10/24/18 Reported Metformin Hcl 500 Mg Tablet 500 Mg PO BID 11/12/13 Reported Impression . 1. Abnormal chest x-ray now and abnormal CT chest from last year, highly suspicious for early idiopathic pulmonary fibrosis. She has crackles at 1/3 at the bases and the CT chest findings with peripheral fibrotic changes with increased fibrotic changes at the bases are highly consistent with idiopathic pulmonary fibrosis. 2. Recently diagnosed adenocarcinoma of the colon, status post laparoscopic right colon resection. 3. History of deep venous thrombosis, left lower extremity, status post inferior vena cava filter, not an optimum candidate for long-term anticoagulation. 4. No significant tobacco history. Plan . 1. At this point keeping in view of her advanced age bx is not recommended. Conservative follow up on her fibrosis would be reasonable, repeat a CAT scan as an outpatient sometimes this year to make a year comparison 2. 6-minute walk test done. did well. no O2 3. Follow General Surgery recommendations. 4. DVT prophylaxis with Lovenox. She already has an IVC filter. 5. PRN bronchodilators. IS, the importance of use discussed 6. Discussed with pt ok with CHRISTOPHER Maldonado MD Nov 17, 2018 14:02
[2018-11-17 15:47] VITALS: BP 127/63
--- NOTE | 2018-11-17 16:53 | DISCH ---
DISCHARGE INSTRUCTIONS Condition on Discharge Condition on Discharge: Stable Activity After Discharge Activity Instructions for Disc: Activity as tolerated, Avoid exertion Lifting Instructions after Dis: No heavy lifting, No pulling or pushing Diet after Discharge Diet after Discharge: Diabetic No Calorie Level Wound Incision Care Other wound/incision instructi: may shower Community/Resources/Services Services at Discharge: Home Health Care Services, PT EVALUATE & TREAT, OT Evaluate & Treat Follow-Up Follow up with: Shaquille 11/21 Treatment/Equipment after DC Adaptive Equipment Issued: None DANITA OHARA MD Nov 17, 2018 16:53
--- NOTE | 2018-11-17 16:54 | PDOC3 ---
Discharge Summary Visit Information Date of Admission: Nov 10, 2018 Date of Discharge: Nov 17, 2018 Admitting Diagnosis Comment: colon cancer Final Diagnosis colon cancer Brief Hospital Course Allergies Allergies Coded Allergies Type Severity Reaction Last Updated Verified No Known Drug Allergies 11/10/18 No Vital Signs Vital Signs Date Time Temp Pulse Resp B/P (MAP) Pulse Ox O2 Delivery O2 Flow Rate FiO2 11/17/18 15:47 98.5 77 18 127/63 (84) 98 Room Air 98.5 11/17/18 07:50 2.0 Lab Results Laboratory Tests Test 11/15/18 20:48 11/16/18 04:30 11/16/18 04:35 11/16/18 06:14 Glucose (Fingerstick) 79 mg/dL (70-99) 76 mg/dL (70-99) White Blood Count 6.2 x10^3/uL (4.0-11.0) Red Blood Count 3.05 x10^6/uL (3.50-5.40) Hemoglobin 7.7 g/dL (12.0-15.5) Hematocrit 24.3 % (36.0-47.0) Mean Corpuscular Volume 80 fL (79-100) Mean Corpuscular Hemoglobin 25 pg (25-35) Mean Corpuscular Hemoglobin Concent 32 g/dL (31-37) Red Cell Distribution Width 20.0 % (11.5-14.5) Platelet Count 334 x10^3/uL (140-400) Neutrophils (%) (Auto) 56 % (31-73) Lymphocytes (%) (Auto) 30 % (24-48) Monocytes (%) (Auto) 12 % (0-9) Eosinophils (%) (Auto) 1 % (0-3) Basophils (%) (Auto) 1 % (0-3) Neutrophils # (Auto) 3.5 x10^3uL (1.8-7.7) Lymphocytes # (Auto) 1.9 x10^3/uL (1.0-4.8) Monocytes # (Auto) 0.7 x10^3/uL (0.0-1.1) Eosinophils # (Auto) 0.1 x10^3/uL (0.0-0.7) Basophils # (Auto) 0.0 x10^3/uL (0.0-0.2) Sodium Level 138 mmol/L (136-145) Potassium Level 3.7 mmol/L (3.5-5.1) Chloride Level 103 mmol/L (98-107) Carbon Dioxide Level 26 mmol/L (21-32) Anion Gap 9 (6-14) Blood Urea Nitrogen 4 mg/dL (7-20) Creatinine 0.7 mg/dL (0.6-1.0) Estimated GFR (Cockcroft-Gault) 96.5 Glucose Level 76 mg/dL (70-99) Calcium Level 8.5 mg/dL (8.5-10.1) Test 11/16/18 07:24 11/16/18 11:47 11/16/18 16:55 11/16/18 20:56 Glucose (Fingerstick) 78 mg/dL (70-99) 90 mg/dL (70-99) 100 mg/dL (70-99) 129 mg/dL (70-99) Test 11/17/18 07:33 11/17/18 11:59 Glucose (Fingerstick) 93 mg/dL (70-99) 112 mg/dL (70-99) Laboratory Tests Test 11/16/18 16:55 11/16/18 20:56 11/17/18 07:33 11/17/18 11:59 Glucose (Fingerstick) 100 mg/dL (70-99) 129 mg/dL (70-99) 93 mg/dL (70-99) 112 mg/dL (70-99) Brief Hospital Course Ms. Romero is a 82 old [sex] who presented with [ ] Discharge Information Condition at Discharge: Stable Follow Up: As Needed Disposition/Orders: D/C to Home w/ HH Scheduled Amlodipine Besylate (Amlodipine Besylate) 5 Mg Tablet, 5 MG PO DAILY for hypertension, (Reported) Entered as Reported by: BRITTANY ORNELAS on 10/24/181832 Last Taken: Unknown Dose on 11/10/18 0635 Last Action: Continued on 11/10/181158 by DANITA OHARA Ferrous Sulfate (Ferrous Sulfate) 325 Mg Tablet, 1 TAB PO BID for iron, #60 Ref 3 (Reported) Entered as Reported by: BRITTANY ORNELAS on 10/24/181832 Last Taken: Unknown Dose on 11/09/18 1500 Last Action: HELD on 11/10/181158 by DANITA OHARA Metformin Hcl (Metformin Hcl) 500 Mg Tablet, 500 MG PO BID, (Reported) Entered as Reported by: MINESH AG on 11/12/13 1548 Last Taken: Unknown Dose on 11/09/18 1900 Last Action: Converted on 1158 by DANITA OHARA Omeprazole (Omeprazole) 20 Mg Capsule.dr, 1 CAP PO DAILY for gerd, #30 Ref 5 ( Reported) Entered as Reported by: BRITTANY ORNELAS on 10/24/18 1833 Last Taken: Unknown Dose on 11/10/18 0635 Last Action: Converted on 11/10/181158 by DANITA REARDON MD Nov 17, 2018 16:54
--- NOTE | 2018-11-17 19:15 | NUR ---
Pt was discharged to home with HH at 1915 today in stable condition with all personal belongings. All pertinent information including follow up, medications, PT/OT/RN orders and daughter's home address faxed to jerome Erickson purchased by pt at discharge. Pt was escorted by staff and driven home by her daughter who picked her up at the main exit.
--- NOTE | 2018-11-17 23:32 | CONS ---
DATE OF CONSULTATION: 11/17/2018 REQUESTING PHYSICIAN: Dr. Jose Rafael Corbin. REASON FOR CONSULTATION: Colon cancer. HISTORY OF PRESENT ILLNESS: The patient is an 82-year-old -[place] female who had heme positive stools and she underwent a colonoscopy on 09/03/2018 at [facility] and she was noted to have a mass in the hepatic flexure of the colon and biopsies revealed adenocarcinoma. She also had an EGD at that time that showed gastritis. She then developed swelling in the left lower extremity and a venous Doppler was positive for left distal superficial femoral vein and popliteal vein thrombosis on 10/24/2018 and she underwent an inferior vena cava filter placement. She received 2 units of PRBC transfusion for anemia. CT scan of the abdomen and pelvis on 10/31/2018 revealed nodular thickening of the hepatic flexure and ascending colon with prominent pericolonic lymph nodes and two lesions in the liver, which were likely simple cysts, although metastasis could not be ruled out. She was evaluated by Dr. Jose Rafael Corbin and she underwent laparoscopic-assisted right colon resection on 11/10/2018. Pathology revealed invasive colorectal adenocarcinoma with mucinous features, moderate to poorly differentiated, forming a partially circumferential ulcerated tumor mass of the mid ascending colon measuring 8.5 cm in circumference and 4.2 cm in length. Tumor invasion was through the muscularis propria into the subserosa. Separate invasive colorectal adenocarcinoma with mucinous features, moderately differentiated was also noted. None of the 22 lymph nodes had evidence of malignancy. Margins were negative. There was no perineural invasion or lymphovascular invasion. It was staged as a T3 N0 M0, stage 2 colon cancer. PAST MEDICAL HISTORY: Diabetes mellitus, hypertension, inferior vena cava filter placement in 10/2018 for DVT of the left lower extremity diagnosed on 10/24/2018. SOCIAL HISTORY: No smoking or alcohol abuse. FAMILY HISTORY: Positive for diabetes. REVIEW OF SYSTEMS: A 12-point review of system was performed. Pertinent positives are mentioned in the history of present illness. Rest of the system review is negative. PHYSICAL EXAMINATION: GENERAL APPEARANCE: The patient is an 82-year-old -[place] female who is in no acute cardiorespiratory distress. VITAL SIGNS: Blood pressure 131/62, temperature 98.3. HEENT: Head atraumatic, normocephalic. Eyes: No icterus. NECK: Supple. CHEST: Bilaterally symmetrical. No crepitations or rhonchi heard. HEART: S1, S2 normal. ABDOMEN: Soft, postop. CENTRAL NERVOUS SYSTEM: No focal deficits. LYMPHATICS: No lymphadenopathy. SKIN: No rashes. PSYCHOLOGIC: Mood and affect are appropriate. MUSCULOSKELETAL: No joint effusions. LABORATORY DATA: WBC 6.2, hemoglobin 7.7, MCV 80, platelet count 334, calcium 8.8, total bilirubin 0.5, AST 15, ALT 9, albumin 2.4, creatinine 0.8. IMPRESSION AND PLAN: 1. T3 N0 M0, stage 2 moderate to poorly differentiated adenocarcinoma of the ascending colon measuring 8.5 cm with a separate invasive colorectal adenocarcinoma also noted. It was staged as a T3 N0 M0, stage [address] scan of abdomen and pelvis not revealing any metastatic disease. I will also obtain a CT scan of the chest to complete staging workup. The margins is negative, lymph nodes are negative. There is no evidence of perineural invasion or lymphovascular invasion. All the prognostic factors are good, except for some areas of poorly differentiated malignancy. Adjuvant chemotherapy is indicated for patients who have poorly differentiated carcinomas. I will discuss with the pathologist regarding the extent of the poorly differentiated malignancy. I have advised the patient to return for followup in 3 weeks and I will discuss the role of adjuvant chemotherapy. However, considering her advanced age, it may not be unreasonable to proceed with observation. I discussed in detail with the patient and she understands and agrees with the plan. She will follow up with me in 3 weeks for surveillance. 2. Anemia, which I suspect is due to iron deficiency. She is being discharged at this point and hence I will obtain iron panel as an outpatient. I discussed with the registered nurse. ELLEN GODINEZ MD DR: BLAKE/ghulam JOB#: [id number] / [id number] FINA
== END 2018-11-17 19:15 | disposition home health service (06) | DRG 329 ==
LOC: OPSVCIP 07:57 → 4 NORTH 14:43
PROVIDERS: ADMIT Surgery; ATTEND Surgery
PROC: 0DTF0ZZ Resection of Right Large Intestine, Open Approach (ICD-10-PCS; principal; 2018-11-10 09:15)
DX: C18.2 Malignant neoplasm of ascending colon (principal); E43 Unspecified severe protein-calorie malnutrition; D62 Acute posthemorrhagic anemia; C18.3 Malignant neoplasm of hepatic flexure; C19 Malignant neoplasm of rectosigmoid junction; I10 Essential (primary) hypertension; E11.9 Type 2 diabetes mellitus without complications; D72.829 Elevated white blood cell count, unspecified; K29.70 Gastritis, unspecified, without bleeding; Z86.718 Personal history of other venous thrombosis and embolism; Z87.891 Personal history of nicotine dependence; Z95.828 Presence of other vascular implants and grafts; Z79.899 Other long term (current) drug therapy; Z98.49 Cataract extraction status, unspecified eye; Z83.3 Family history of diabetes mellitus
CPT/HCPCS: 36415; 71045; 71046; 71250; 80048; 80053; 81001; 82962; 83880; 85007; 85014; 85018; 85025; 86850; 86900; 86901; 86920; 87086; 88309; 94618; A7015; C9113; J0780; J1100; J1170; J1650; J1815; J2001; J2270; J2370; J2405; J2704; J2710; J3010; J3490; J7030; J7120; 97110; 97116; 97530; 97535

== ENCOUNTER 2019-06-28 12:44 | Emergency (ER) | payer BC ==
[~2019-06-28] VITALS: Ht 165.1 cm; Wt 86.2 kg
[~2019-06-28 12:44] MED LIST changes: -HYDROmorphone 2 MG/ML VIAL IV PRN; -LIDOCAINE 1% PF 2 ML VIAL. ID PRN; -ONDANSETRON PF 4 MG/2 ML VIAL. IV PRN; -PROCHLORPERAZINE 10 MG/2 ML VIAL. IV PRN; -fentaNYL PF VIAL 100 MCG/2 ML VIAL IV PRN
[2019-06-28 13:00] VITALS: BP 160/75
--- NOTE | 2019-06-28 14:01 | PHYS DOC ---
Past Medical History Past Medical History: Diabetes-Type II, Hypertension Additional Past Medical Histor: Chronic back pain Past Surgical History: Other Additional Past Surgical Histo: cataract repair, Colon resection Alcohol Use: None Drug Use: None Adult General Chief Complaint Chief Complaint: right arm numbness [facility] Patient is a 83 year old right-handed female patient with history of hypertension and diabetes mellitus who presents with complaint of right arm numbness. Patient states she was raising her hand to exercise and felt numbness of the right arm at 1200 today that last for a few minutes and resolved spontaneously. Patient also complaining of bilateral upper extremity weakness for several days. Patient denies headache, chest pain, shortness of breath, nausea and vomiting, fever and chills, URI symptoms, history of the same problem. Review of Systems Review of Systems Constitutional: Denies fever or chills [] Eyes: Denies change in visual acuity, redness, or eye pain [] HENT: Denies nasal congestion or sore throat [] Respiratory: Denies cough or shortness of breath [] Cardiovascular: No additional information not addressed in HPI [] GI: Denies abdominal pain, nausea, vomiting, bloody stools or diarrhea [] : Denies dysuria or hematuria [] Musculoskeletal: Denies back pain or joint pain [] Integument: Denies rash or skin lesions [] Neurologic: Denies headache, focal weakness, reports sensory changes [] Endocrine: Denies polyuria or polydipsia [] All other systems were reviewed and found to be within normal limits, except as documented in this note. Allergies Allergies Allergies Coded Allergies Type Severity Reaction Last Updated Verified No Known Drug Allergies 11/10/18 No Physical Exam Physical Exam Constitutional: Well developed, well nourished, mild distress, non-toxic ap pearance. [] HENT: Normocephalic, atraumatic, bilateral external ears normal, oropharynx moist, no oral exudates, nose normal. [] Eyes: PERRLA, EOMI, conjunctiva normal, no discharge. [] Neck: Normal range of motion, no tenderness, supple, no stridor. [] Cardiovascular:Heart rate regular rhythm, no murmur [] Lungs & Thorax: Bilateral breath sounds clear to auscultation [] Abdomen: Bowel sounds normal, soft, no tenderness, no masses, no pulsatile masses. [] Skin: Warm, dry, no erythema, no rash. [] Back: No tenderness, no CVA tenderness. [] Extremities: No tenderness, no cyanosis, no clubbing, ROM intact, no edema. [] Neurologic: Alert and oriented X 3, normal motor function, normal sensory function, no focal deficits noted. [] Psychologic: Affect normal, judgement normal, mood normal. [] Current Patient Data Vital Signs Vital Signs Date Time Temp Pulse Resp B/P (MAP) Pulse Ox O2 Delivery O2 Flow Rate FiO2 06/28/19 13:00 98.0 76 20 160/75 (103) 98 Room Air 98.0 EKG EKG [] Radiology/Procedures Radiology/Procedures [][address] [id number] IMAGING REPORT Signed PATIENT: GLORIA COY ACCOUNT: [id number] : 1935 LOCATION: ER AGE: 83 SEX: F EXAM STATUS: REG ER ORD. PHYSICIAN: JAME JAQUEZ MD REASON: right hand numbness PROCEDURE: CT HEAD WO CONTRAST Exam performed: CT scan of the head without contrast. Date of Service: 06/28/2019. Comparison: CT head without contrast from 12/31/2017. Clinical History: Right hand numbness. Technique: Helical acquisitions are obtained from the foramen magnum to the vertex without intravenous administration of contrast. Findings: The ventricles are midline without evidence of dilatation. Normal juárez-white differentiation is maintained. There is no extra axial fluid collection, intraparenchymal hemorrhage or mass lesion. The visualized portions of the orbits, paranasal sinuses and the mastoid air cells appear clear. The calvarium is intact. Impression: 1. No acute intracranial process detected. RS Compliance Statement: One or more of the following individualized dose reduction techniques were utilized for this examination: 1. Automated exposure control 2. Adjustment of the mA and/or kV according to patient size 3. Use of iterative reconstruction technique Electronically signed by: Chikis Helm MD (06/28/2019 2:36 PM) [facility] DICTATED and SIGNED BY: CHIKIS HELM MD DATE: 06/28/[address] [place] [address] IMAGING REPORT Signed PATIENT: GLORIA COY ACCOUNT: [id number] : 1935 LOCATION: ER AGE: 83 SEX: F EXAM STATUS: REG ER ORD. PHYSICIAN: JAME JAQUEZ MD REASON: pain and edema PROCEDURE: VENOUS UPPER EXTREMITY RIGHT STUDY: VENOUS UPPER EXTREMITY RIGHT INDICATION: Upper extremity pain and edema. TECHNIQUE: Color-flow and pulsed wave duplex ultrasound with compression of venous structures of the right upper extremity. COMPARISON: None. FINDINGS: Duplex ultrasound with compression of the deep venous structures of the right upper extremity from the internal jugular vein through the radial and ulnar veins. No deep venous thrombosis is identified. The assessed superficial veins are patent as well. IMPRESSION: No deep venous thrombosis seen throughout the right upper extremity. Electronically signed by: OFELIA SEVILLA MD (06/28/2019 3:04 PM) [facility] [id number] DICTATED and SIGNED BY: OFELIA SEVILLA MD DATE: 06/28/19 1504 Course & Med Decision Making Course & Med Decision Making Pertinent Imaging studies reviewed. (See chart for details) discharge: I've spoken with the patient and/or caregivers. I've explained the patient's condition, diagnosis and treatment plan based on information available to me at this time. I've answered the patient's and/or caregivers questions and addressed any concerns. The patient and/or caregivers have a good understanding the patient's diagnosis, condition and treatment plan as can be expected at this point. Vital signs have been stabilized. The patient's condition is stable for discharge from the emergency department. The patient will pursue further outpatient evaluation with her primary care provider or other designated consulting physician as outlined in the discharge instructions. Patient and/or caregivers are agreeable to this plan of care and follow-up instructions have been explained in detail. The patient and/or caregivers have received these instructions in written format and expressed understanding of these discharge instructions. The patient and her caregivers are aware that if any significant change in condition or worsening of symptoms should prompt him to immediately return to this of the closest emergency department. If an emergent department is not readily available I would encourage him to call 911. Dragon Disclaimer Dragon Disclaimer This electronic medical record was generated, in whole or in part, using a voice recognition dictation system. Departure Departure Impression: Primary Impression: Paresthesia Disposition: 01 HOME, SELF-CARE (at 1526) Condition: STABLE Referrals: DARVIN MCCALLUM MD (PCP) Patient Instructions: Paresthesia Additional Instructions: Drink plenty of liquids Follow-up with your primary care physician in 3-5 days Return to ER if not getting better Scripts Thiamine Hcl (VITAMIN B-1) 100 Mg Tablet 1 TAB PO DAILY for 30 Days, #30 TAB 0 Refills Prov: JAME JAQUEZ MD 06/28/19 NIHSS Stroke Scale NIH Stroke Scale: NIH Stroke Scale Response (Comments) Value Level of Consciousness: 0 Alert/Responsive 0 LOC Questions: 0 Answers both correctly 0 LOC Commands: 0 Performs both tasks 0 Best Gaze: 0 Normal 0 Visual: 0 No visual loss 0 Facial Palsy: 0 Normal, symmetrical 0 Motor - Left Arm 0 No drift 0 Motor - Right Arm 0 No drift 0 Motor - Left Leg 0 No drift 0 Motor: Right Leg 0 No drift 0 Limb Ataxia: 0 Absent 0 Sensory: 0 No loss 0 Best Language: 0 Normal 0 Dysathria: 0 Normal 0 Extinction and Inattention: 0 Normal 0 Total 0 JAME JAQUEZ MD Jun 28, 2019 14:01
--- NOTE | 2019-06-28 14:39 | RAD ---
Exam performed: CT scan of the head without contrast. Date of Service: 06/28/2019. Comparison: CT head without contrast from 12/31/2017. Clinical History: Right hand numbness. Technique: Helical acquisitions are obtained from the foramen magnum to the vertex without intravenous administration of contrast. Findings: The ventricles are midline without evidence of dilatation. Normal juárez-white differentiation is maintained. There is no extra axial fluid collection, intraparenchymal hemorrhage or mass lesion. The visualized portions of the orbits, paranasal sinuses and the mastoid air cells appear clear. The calvarium is intact. Impression: 1. No acute intracranial process detected. PQRS Compliance Statement: One or more of the following individualized dose reduction techniques were utilized for this examination: 1. Automated exposure control 2. Adjustment of the mA and/or kV according to patient size 3. Use of iterative reconstruction technique Electronically signed by: Chikis Helm MD (06/28/2019 2:36 PM) [facility]
--- NOTE | 2019-06-28 15:07 | RAD ---
STUDY: VENOUS UPPER EXTREMITY RIGHT INDICATION: Upper extremity pain and edema. TECHNIQUE: Color-flow and pulsed wave duplex ultrasound with compression of venous structures of the right upper extremity. COMPARISON: None. FINDINGS: Duplex ultrasound with compression of the deep venous structures of the right upper extremity from the internal jugular vein through the radial and ulnar veins. No deep venous thrombosis is identified. The assessed superficial veins are patent as well. IMPRESSION: No deep venous thrombosis seen throughout the right upper extremity. Electronically signed by: OFELIA SEVILLA MD (06/28/2019 3:04 PM) [facility] [id number]
[2019-06-28] MEDS ORDERED: THIA100T57 PO (15:27)
== END 2019-06-28 15:33 | disposition home or self-care (01) ==
LOC: ER 12:44
DX: R20.2 Paresthesia of skin (principal); R53.1 Weakness; E11.9 Type 2 diabetes mellitus without complications; I10 Essential (primary) hypertension; G89.29 Other chronic pain
CPT/HCPCS: 70450; 93971; 99284-25

== ENCOUNTER → 2019-10-21 | Outpatient (CLI) | payer BC ==
[~2019-10-21] MED LIST changes: +IOHEXOL 240 MG/ML 50ML VIAL. PO ONE; +IOHEXOL 300 MG/ML 100ML VIAL. IV ONE; -OMEP20CA10 PO; +OMEP20CA16 PO; +THIA100T57 PO
--- NOTE | 2019-10-21 15:14 | RAD ---
CT CHEST ABD PELVIS W/CONTRAST Indication: Colon cancer Technique: Postcontrast CT imaging was performed of the chest, abdomen, pelvis, multiplanar reconstruction images submitted. Oral contrast was also given. One or more of the following individualized dose reduction techniques were utilized for this examination: 1. Automated exposure control 2. Adjustment of the mA and/or kV according to patient size 3. Use of iterative reconstruction technique. Comparison: October 20172018 CT abdomen pelvis exam and chest CT November 17, 2018 Findings: There is some motion degradation. There is no new suspicious pulmonary nodularity. There is again septal thickening and reticular fibrotic change bilaterally, also degree of bronchiectasis of the lower lobes greater on the right. 0.5 cm left lower lobe nodule image 30 series 2 is similar. There is no pleural or pericardial fluid or pneumothorax. There is no new significant chest lymphadenopathy. There is a small hypodense lesion left thyroid gland about 0.5 cm. There is some coronary calcification. There is multilevel thoracic degenerative disc disease. There is [id number] reverse S-shaped scoliosis of the thoracic spine. IMPRESSION: 1. There is no new evidence of metastatic disease to the chest. 2. There is again evidence of interstitial pneumonia/fibrotic change. Abdomen pelvis FINDINGS: Previously seen small 0.4 cm hypodense lesion of the lateral left lobe liver is similar. No new liver lesion is identified. There is no adrenal nodularity. Gallbladder is present without obvious intraluminal abnormality by CT. There is again inferior vena cava filter. Both kidneys enhance, no hydronephrosis. No new focal abnormality is identified of the pancreas or spleen. There has been interval right hemicolectomy. There is a new ventral, superior abdominal hernia containing partial anterior wall of a short segment of the bowel apparently small bowel or near ileocolic anastomosis, defect on the order of 5.5 cm transverse and hernia sac about 4.6 cm transverse. There is no free fluid or free air. Bowel is not significantly dilated. There is increased retained stool of the sigmoid colon. There is multilevel lumbar facet degenerative change, very mild grade 1 anterior spondylolisthesis at L4-5. There is probable moderate to severe spinal stenosis at L4-5. IMPRESSION: 1. Small hypodense lesion of left lobe liver is stable and there is no new liver lesion or other evidence of new metastatic disease. 2. There is now ventral abdominal hernia containing partial anterior lopez of bowel. 3. There is L4-5 spinal stenosis. Electronically signed by: Herbert Christy MD (10/21/2019 3:11 PM) [id number]
== END | disposition home or self-care (01) ==
LOC: CT 12:28
PROVIDERS: ATTEND Internal Medicine Hematology & Oncology
DX: C18.2 Malignant neoplasm of ascending colon (principal); M48.061 Spinal stenosis, lumbar region without neurogenic claudication; M43.16 Spondylolisthesis, lumbar region; M51.34 Other intervertebral disc degeneration, thoracic region; M41.54 Other secondary scoliosis, thoracic region; I51.5 Myocardial degeneration; J47.9 Bronchiectasis, uncomplicated; K46.9 Unspecified abdominal hernia without obstruction or gangrene; R91.1 Solitary pulmonary nodule; I25.10 Atherosclerotic heart disease of native coronary artery without angina pectoris; M47.895 Other spondylosis, thoracolumbar region
CPT/HCPCS: 71260; 74177; Q9966; Q9967

== ENCOUNTER 2021-04-08 18:21 | Emergency (ER) | payer BC ==
[~2021-04-08] VITALS: Ht 162.6 cm; Wt 86.4 kg
[~2021-04-08 18:21] MED LIST changes: +AMLO-186 PO; -AMLO5TAB10 PO; -IOHEXOL 240 MG/ML 50ML VIAL. PO ONE; -IOHEXOL 300 MG/ML 100ML VIAL. IV ONE
--- NOTE | 2021-04-08 20:02 | ED.ADGEN ---
Past Medical History Past Medical History: Diabetes-Type II, Hypertension Additional Past Medical Histor: Chronic back pain Past Surgical History: Hysterectomy, Other Additional Past Surgical Histo: cataract repair, Colon resection Smoking Status: Former Smoker Alcohol Use: None Drug Use: None General Adult EDM: Chief Complaint: MECHANICAL FALL HPI: HPI: Patient is a 85 year old female coming in after a fall earlier today. Patient states she was try to step over a cart and lost her balance and fell to her right side. Denies any extremity pain. She did hit her head on the right side but did not lose consciousness. Takes a baby aspirin daily but no other anticoagulant use. Patient states she otherwise has been well and has been ambulatory afterwards. Has been vaccinated against COVID-19 Review of Systems: Review of Systems: All other systems within normal limits except for as noted in the HPI Allergies: Allergies: Allergies Coded Allergies Type Severity Reaction Last Updated Verified No Known Drug Allergies 11/10/18 No Physical Exam: PE: Constitutional: Well developed, well nourished, no acute distress, non-toxic appearance. [] HENT: Normocephalic, atraumatic, bilateral external ears normal, nose normal. Right parietal head [] Eyes: PERRLA, conjunctiva normal, no discharge. [] Neck: No rigidity, supple, no stridor. [] Cardiovascular: Regular rate and rhythm, brisk cap refill [] Lungs & Thorax: Non labored symmetric respirations, no tachypnea or respiratory distress [] Abdomen: Soft, nondistended. Skin: Warm, dry, no erythema, no rash. [] Back: Unremarkable Extremities: No deformities, range of motion grossly intact, no lower extremity edema [] Neurologic: Alert and oriented X 3, no focal deficits noted. [] Psychologic: Affect normal, judgement normal, mood normal. [] Current Patient Data: Vital Signs: Vital Signs Date Time Temp Pulse Resp B/P (MAP) Pulse Ox O2 Delivery O2 Flow Rate FiO2 04/08/21 19:36 98.4 85 16 157/79 (103) 96 Room Air 98.4 EKG: EKG: [] Heart Score: C/O Chest Pain: No Risk Factors: Risk Factors: DM, Current or recent (<one month) smoker, HTN, HLP, family history of CAD, obesity. Risk Scores: Score 0 - 3: 2.5% MACE over next 6 weeks - Discharge Home Score 4 - 6: 20.3% MACE over next 6 weeks - Admit for Clinical Observation Score 7 - 10: 72.7% MACE over next 6 weeks - Early Invasive Strategies Radiology/Procedures: Radiology/Procedures: [facility] [address] [place] [address] IMAGING REPORT Signed PATIENT: GLORIA COY ACCOUNT: [id number] : 1935 LOCATION: ER AGE: 85 SEX: F EXAM STATUS: REG ER ORD. PHYSICIAN: JUNIE VILLARREAL MD REASON: fall, head injury PROCEDURE: CT HEAD AND CERVICAL SPINE WO Examination: CT head and cervical spine without contrast CT HEAD INDICATION: Reason: fall, head injury / Spl. Instructions: / History: COMPARISON: 06/28/2019. Exposure: One or more of the following individualized dose reduction techniques were utilized for this examination: 1. Automated exposure control 2. Adjustment of the mA and/or kV according to patient size 3. Use of iterative reconstruction technique TECHNIQUE: 5 mm contiguous axial images were obtained from the skull base to the vertex in both bone and soft tissue algorithm. FINDINGS: Mild bilateral periventricular white matter hypodensities likely chronic small vessel ischemic disease. No evidence of acute intracranial hemorrhage. No extra-axial fluid collections. No mass effect or midline shift. Ventricular size is appropriate. Basal cisterns are patent. No fractures identified.Hendricks-white differentiation is preserved.Globes and orbits are within normal limits. Paranasal sinuses and mastoid air cells are clear. CT CERVICAL SPINE INDICATION: Reason: fall, head injury / Spl. Instructions: / History: COMPARISON: None Available. Technique: 2.5 mm contiguous axial images were obtained from the skull base through the cervicothoracic junction in both bone and soft tissue algorithm. Additional sagittal and coronal reconstructions were also performed. FINDINGS: Vertebral body height and alignment are maintained. Cervical lordosis is preserved. The lateral masses of C1 are aligned upon C2. No fractures identified. The bony canal is patent throughout. Severe intervertebral disc height loss identified in the cervical spine throughout likely degenerative changes. The paraspinous soft tissues are unremarkable. Visualized intracranial contents are unremarkable. Apical thickening or minimal infiltrates right apical lung. IMPRESSION: 1. No acute intracranial findings. 2. No acute fracture cervical spine. Correlate clinically. 3. Severe degenerative changes cervical spine. Electronically signed by: Danilo Kelsey MD (04/08/2021 8:50 PM) [id number] DICTATED and SIGNED BY: DANILO KELSEY MD DATE: 04/08/21 [id number] [] Course & Med Decision Making: Course & Med Decision Making Pertinent Labs and Imaging studies reviewed. (See chart for details) [] Dragon Disclaimer: Dragon Disclaimer: This electronic medical record was generated, in whole or in part, using a voice recognition dictation system. Departure Departure Impression: Primary Impression: Fall Disposition: 01 HOME / SELF CARE / HOMELESS Condition: STABLE Referrals: DARVIN MCCALLUM MD (PCP) Patient Instructions: Fall Prevention and Home Safety JUNIE VILLARREAL MD Apr 08, 2021 20:02
--- NOTE | 2021-04-08 20:53 | RAD ---
Examination: CT head and cervical spine without contrast CT HEAD INDICATION: Reason: fall, head injury / Spl. Instructions: / History: COMPARISON: 06/28/2019. Exposure: One or more of the following individualized dose reduction techniques were utilized for thi s examination: 1. Automated exposure control 2. Adjustment of the mA and/or kV according to patient size 3. Use of iterative reconstruction technique TECHNIQUE: 5 mm contiguous axial images were obtained from the skull base to the vertex in both bone and soft tissue algorithm. FINDINGS: Mild bilateral periventricular white matter hypodensities likely chronic small vessel ischemic diseas e. No evidence of acute intracranial hemorrhage. No extra-axial fluid collections. No mass effect or midline shift. Ventricular size is appropriate. Basal cisterns are patent. No fractures identified.Hendricks-white differentiation is preserved.Globes and orbits are within normal l imits. Paranasal sinuses and mastoid air cells are clear. CT CERVICAL SPINE INDICATION: Reason: fall, head injury / Spl. Instructions: / History: COMPARISON: None Available. Technique: 2.5 mm contiguous axial images were obtained from the skull base through the cervicothorac ic junction in both bone and soft tissue algorithm. Additional sagittal and coronal reconstructions were also performed. FINDINGS: Vertebral body height and alignment are maintained. Cervical lordosis is preserved. The l ateral masses of C1 are aligned upon C2. No fractures identified. The bony canal is patent throughout. Severe intervertebral disc height loss identified in the cervical spine throughout likely degenerativ e changes. The paraspinous soft tissues are unremarkable. Visualized intracranial contents are unremarkable. A pical thickening or minimal infiltrates right apical lung. IMPRESSION: 1. No acute intracranial findings. 2. No acute fracture cervical spine. Correlate clinically. 3. Severe degenerative changes cervical spine. Electronically signed by: Danilo Kelsey MD (04/08/2021 8:50 PM) [id number]
[2021-04-08 21:13] VITALS: BP 172/74
== END 2021-04-08 21:34 | disposition home or self-care (01) ==
LOC: ER 18:21
DX: S09.90XA Unspecified injury of head, initial encounter (principal); M54.2 Cervicalgia; E11.9 Type 2 diabetes mellitus without complications; I10 Essential (primary) hypertension; G89.29 Other chronic pain; Z87.891 Personal history of nicotine dependence; W18.09XA Striking against other object with subsequent fall, initial encounter; Y93.89 Activity, other specified; Y92.89 Other specified places as the place of occurrence of the external cause; Y99.8 Other external cause status
CPT/HCPCS: 70450; 72125; 99285-25